=== PATIENT | male | born 1950 | race Caucasian/White ===

== ENCOUNTER → 2021-05-31 09:23 | Outpatient (REF) | payer MEDICARE, SELFPAY ==
--- NOTE | 2021-05-31 09:29 | CA_ITS ---
Transthoracic Echocardiogram Patient (Last, First, Middle): Billy Holman Le Grand Gender: Male Date of : 1950 Age: 70 Procedure Date: 05/31/2021 Procedure Type: Transthoracic Echocardiogram Location: OP Height: 182.88 cm Weight: 98.88 kg BSA: 2.21 m2 Heart Rate: bpm BP: 129 / 72 mmHg Immigration Case Worker: MALCOLM Referring MD: Moe Toth MD Symptoms: I10 - Essential (primary) hypertension Study Quality: Fair ECG Rhythm: Sinus Conclusions: - The left ventricular systolic function is normal. The calculated ejection fraction is 63% by biplane method. - There is mild aortic valve regurgitation. - There is moderate dilatation of the ascending aorta measuring 4.80 cm and mild dilatation of the aortic arch measuring 4.00 cm. Findings Left Ventricle Normal left ventricular cavity size. There is mildly increased left ventricular wall thickness. The left ventricular systolic function is normal. The calculated ejection fraction is 63% by biplane method. There is no evidence of regional wall motion abnormalities. E/E prime ratio is between 8 and 15 consistent with indeterminate filling pressures. Evidence suggests grade I (mild) diastolic dysfunction. Right Ventricle Normal right ventricular cavity size and systolic function. Atria The left atrium is mildly dilated. The right atrium is normal in size. Aortic Valve There is a normal trileaflet aortic valve. There is mild calcification of the aortic valve. There is no aortic valve stenosis. There is mild aortic valve regurgitation. Mitral Valve The mitral valve appears normal. There is no mitral valve regurgitation. There is no mitral valve stenosis. Pulmonic Valve The pulmonic valve was not well visualized. Tricuspid Valve Normal tricuspid valve structure. There is trace tricuspid valve regurgitation. The pulmonary artery systolic pressure is normal. Great Vessels There is moderate dilatation of the ascending aorta measuring 4.80 cm and mild dilatation of the aortic arch measuring 4.00 cm. Venous The inferior vena cava is normal in size and collapses greater than 50% with inspiration. Pericardium/Pleural There is no evidence of pericardial effusion. Prior Study Comparison Changes noted compared to prior study dated: 03/06/2020. Increase in ascending aortic size. Consider CTA for further evaluation if clinically indicated. Measurements 2D Linear Measurements IVSd: 1.10 0.6-0.9/0.6-1.0 cm LVIDd: 6.04 3.9-5.3/4.2-5.9 cm LVIDd Index: 2.73 2.4-3.2/2.2-3.1 cm/m2 LVIDs: 3.64 2.0-3.6 cm LVPWd: 1.05 0.7-1.1 cm Ao Root: 4.00 2.1-3.5 cm LA Diam: 4.90 2.7-3.8/3.0-4.0 cm LAIDs Index: 2.22 1.5-2.3 cm/m2 LV Mass: 342.16 67-162/88-224 g LV Mass Index: 154.83 43-95/49-115 g/m2 LVOT Diam: 2.40 3.0+(-)1.3 cm 2D Systolic Function EF 4C: 62.70 >55% EF 2C: 62.60 >55% EF BiP: 62.90 >55% Mitral Valve MV Pk E: 0.66 MV PK A: 0.60 MV Decel Time: 166.00 E/A: 1.10 E'Lateral: 7.40 E'Medial: 5.44 E/E' Med: 12.20 E/E' Lat: 9.00 PHT: 49.00 MVA PHT: 4.49 Decel [place]: 4.01 Aortic Valve AoV Pk Varun: 1.56 AoV Pk Grad: 10.00 AI Pk Varun: 3.79 AI [place]: 1.33 LVOT LVOT Pk Varun: 1.33 LVOT Mn Varun: 0.83 LVOT VTI: 0.31 LVOT Pk Grad: 7.00 LVOT Mn Grad: 3.00 LVOT Diam: 2.40 LVOT Area: 4.52 Diastolic Function MV Pk E: 0.66 MV Pk A: 0.60 E/A: 1.10 E'Medial: 5.44 E/E' Med: 12.20 E' Laterial: 7.40 E/E' Lat: 9.00 Right Ventricle TAPSE (mm): 2.14 Tricuspid Valve TR Pk Varun: 2.49 TR Pk Grad: 25.00 RA Press: 3.00 RVSP: 28.00 Great Vessels Aorta Ao Root-2D: 4.00 2.0-3.7 cm Ao Asc: 4.80 2.1-3.4 cm Ao Arch: 4.00 Updated in Other Vendor System with Status of Final Micah Rebolledo MD electronically signed on 06/01/2021 12:57:02 PM with status of Final
== END ==
LOC: HO.CARD 09:23
PROVIDERS: Visit Provider Internal Medicine Cardiovascular Disease
DX: I10 Essential (primary) hypertension (principal); I71.2 Thoracic aortic aneurysm, without rupture
CPT/HCPCS: 93306

== ENCOUNTER → 2021-06-05 08:20 | Outpatient (BNVA) | payer MEDICARE, SELFPAY | PROVIDERS: Visit Provider Internal Medicine Cardiovascular Disease | DX: I71.2 Thoracic aortic aneurysm, without rupture (principal); I10 Essential (primary) hypertension | CPT/HCPCS: 93005; 99212 ==

== ENCOUNTER → 2021-12-03 10:15 | Outpatient (REF) | payer MEDICARE, SELFPAY ==
--- NOTE | 2021-12-03 10:18 | CA_ITS ---
Transthoracic Echocardiogram Patient (Last, First, Middle): Billy Holman Le Grand Gender: Male Date of : 1950 Age: 71 Procedure Date: 12/03/2021 Procedure Type: Transthoracic Echocardiogram Location: OP Height: 182.88 cm Weight: 94.35 kg BSA: 2.17 m2 Heart Rate: 40 bpm BP: 120 / 76 mmHg Team Driver: VINCE Referring MD: Moe Toth MD Symptoms: I42.9 - Cardiomyopathy, unspecified Study Quality: Adequate ECG Rhythm: Bradycardia Conclusions: - The left ventricular systolic function is low normal. The visually estimated ejection fraction is between 50-55%. - There is mild aortic valve regurgitation. - There is moderate dilatation of the ascending aorta measuring 4.60 cm. Findings Left Ventricle Normal left ventricular cavity size. There is mildly increased left ventricular wall thickness. The left ventricular systolic function is low normal. The visually estimated ejection fraction is between 50-55%. There is no evidence of regional wall motion abnormalities. E/E prime ratio is between 8 and 15 consistent with indeterminate filling pressures. Evidence suggests grade I (mild) diastolic dysfunction. Moderate focal hypertrophy of the basal septum. Right Ventricle Normal right ventricular cavity size and systolic function. Aortic Valve There is a normal trileaflet aortic valve. There is mild calcification of the aortic valve. There is no aortic valve stenosis. There is mild aortic valve regurgitation. Great Vessels The aortic annulus, sinuses of valsalva, sino tubular ridge, and desc aorta are normal in size. There is moderate dilatation of the ascending aorta measuring 4.60 cm. Prior Study Comparison Changes noted compared to prior study dated: 05/31/2021. LVEF slightly lower than prior study. Aortic size overall similar to last 3 studies. Measurements 2D Linear Measurements IVSd: 0.88 0.6-0.9/0.6-1.0 cm LVIDd: 6.22 3.9-5.3/4.2-5.9 cm LVIDd Index: 2.87 2.4-3.2/2.2-3.1 cm/m2 LVIDs: 4.06 2.0-3.6 cm LVPWd: 0.84 0.7-1.1 cm LV Mass: 269.34 67-162/88-224 g LV Mass Index: 124.12 43-95/49-115 g/m2 2D Systolic Function EF 4C: 48.20 >55% EF 2C: 53.30 >55% EF BiP: 49.70 >55% Mitral Valve MV Pk E: 0.54 MV PK A: 0.62 MV Decel Time: 229.00 E/A: 0.90 E'Lateral: 4.47 E'Medial: 3.16 E/E' Med: 17.10 E/E' Lat: 12.10 PHT: 67.00 MVA PHT: 3.28 Decel [place]: 2.36 Aortic Valve AoV Pk Varun: 1.61 AoV Mn Varun: 1.13 AoV VTI: 0.38 AoV Pk Grad: 10.00 Aov Mn Grad: 6.00 AI Pk Varun: 4.06 AI [place]: 1.24 LVOT LVOT Pk Varun: 1.23 LVOT Mn Varun: 0.82 LVOT VTI: 0.27 LVOT Pk Grad: 6.00 LVOT Mn Grad: 3.00 Diastolic Function MV Pk E: 0.54 MV Pk A: 0.62 E/A: 0.90 E'Medial: 3.16 E/E' Med: 17.10 E' Laterial: 4.47 E/E' Lat: 12.10 Right Ventricle TAPSE (mm): 19.80 TVS' Varun: 12.40 Tricuspid Valve TR Pk Varun: 2.16 TR Pk Grad: 19.00 RA Press: 3.00 RVSP: 22.00 Great Vessels Aorta Sinus of Valsalva: 3.61 2.0-3.[address] [place]: 3.48 1.7-3.4 cm Ao Asc: 4.60 2.1-3.4 cm Ao Arch: 3.80 Ao Desc: 2.30 Updated in Other Vendor System with Status of Final Micah Rebolledo MD electronically signed on 12/08/2021 1:06:42 PM with status of Final
== END ==
LOC: HO.CARD 10:15
PROVIDERS: Visit Provider Internal Medicine Cardiovascular Disease
DX: I42.9 Cardiomyopathy, unspecified (principal); I71.2 Thoracic aortic aneurysm, without rupture
CPT/HCPCS: 93308

== ENCOUNTER → 2021-12-05 10:16 | Outpatient (BNVA) | payer MEDICARE, SELFPAY | PROVIDERS: Visit Provider Internal Medicine Cardiovascular Disease | DX: I71.2 Thoracic aortic aneurysm, without rupture (principal); I10 Essential (primary) hypertension; R07.89 Other chest pain | CPT/HCPCS: 99212 ==

== ENCOUNTER → 2022-11-28 12:51 | Outpatient (REF) | payer MEDICARE, SELFPAY ==
--- NOTE | 2022-11-28 12:54 | CA_ITS ---
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 Normal LV systolic function LVEF of 60 65% with impaired relaxation filling pattern 2. Mildly dilated left atrium 3. Moderately dilated ascending aorta at 4.9 cm 4. Mild aortic regurgitation 5. Normal RV systolic pressure 6. No gross pericardial effusion Findings Left Ventricle Normal left ventricular size, thickness, and systolic function. The visually estimated ejection fraction is between 60-65%. Spectral Doppler is indicative of an impaired relaxation filling pattern. E/E prime ratio is between 8 and 15 consistent with indeterminate filling pressures. There is moderate septal asymmetric hypertrophy. Right Ventricle Normal right ventricular cavity size and systolic function. Atria The left atrium is mildly dilated. There is no evidence of interatrial shunt. The right atrium is likely dilated. Aortic Valve Normal aortic valve structure and function. There is no aortic valve stenosis. There is mild aortic valve regurgitation. Mitral Valve There is mild anterior and posterior mitral leaflet thickening. There is trace mitral valve regurgitation. There is no mitral valve stenosis. Pulmonic Valve The pulmonic valve was not well visualized. Tricuspid Valve Likely normal tricuspid valve structure and function. There is trace tricuspid valve regurgitation. The right ventricular systolic pressure is normal. The right ventricular systolic pressure is 25 mmHg. Normal right atrial pressure. There is no evidence of pulmonary hypertension. Great Vessels The pulmonary artery was not well visualized. There is moderate dilatation of the ascending aorta measuring 4.90 cm. Venous The inferior vena cava is normal in size and collapses greater than 50% with inspiration. Pericardium/Pleural There is no evidence of pericardial effusion. Prior Study Comparison Changes noted compared to prior study dated: 12/03/2021. Ascending aorta is further enlarged at 4.9 cm. LV systolic function is normal range Measurements 2D Linear Measurements IVSd: 1.66 0.6-0.9/0.6-1.0 cm LVIDd: 5.34 3.9-5.3/4.2-5.9 cm LVIDd Index: 2.44 2.4-3.2/2.2-3.1 cm/m2 LVIDs: 3.13 2.0-3.6 cm LVPWd: 0.99 0.7-1.1 cm LA Diam: 4.50 2.7-3.8/3.0-4.0 cm LAIDs Index: 2.05 1.5-2.3 cm/m2 LV Mass: 372.32 67-162/88-224 g LV Mass Index: 170.01 43-95/49-115 g/m2 LVOT Diam: 2.60 3.0+(-)1.3 cm 2D Systolic Function EF 4C: 62.00 >55% EF 2C: 66.10 >55% EF BiP: 64.20 >55% Mitral Valve MV Pk E: 0.57 MV PK A: 0.51 MV Decel Time: 252.00 E/A: 1.10 E'Lateral: 5.33 E'Medial: 4.24 E/E' Med: 13.50 E/E' Lat: 10.80 PHT: 74.00 MVA PHT: 2.97 Decel [place]: 2.28 Aortic Valve AoV Pk Varun: 1.68 AoV Mn Varun: 1.09 AoV VTI: 0.42 AoV Pk Grad: 11.00 Aov Mn Grad: 5.00 THANH Cont.VTI: 4.19 AI Pk Varun: 3.72 AI [place]: 0.82 LVOT LVOT Pk Varun: 1.28 LVOT Mn Varun: 0.82 LVOT VTI: 0.33 LVOT Pk Grad: 7.00 LVOT Mn Grad: 3.00 LVOT Diam: 2.60 LVOT Area: 5.31 Diastolic Function MV Pk E: 0.57 MV Pk A: 0.51 E/A: 1.10 E'Medial: 4.24 E/E' Med: 13.50 E' Laterial: 5.33 E/E' Lat: 10.80 Right Ventricle TAPSE (mm): 23.80 TVS' Varun: 12.10 Tricuspid Valve TR Pk Varun: 2.35 TR Pk Grad: 22.00 RA Press: 3.00 RVSP: 25.00 Great Vessels Aorta Sinus of Valsalva: 4.18 2.0-3.[address] [place]: 3.26 1.7-3.4 cm Ao Asc: 4.90 2.1-3.4 cm Ao Arch: 4.00 Updated in Other Vendor System with Status of Final Moe Toth MD electronically signed on 12/01/2022 11:53:41 AM with status of Final
== END ==
LOC: HO.CARD 12:51
PROVIDERS: Visit Provider Internal Medicine Cardiovascular Disease
DX: I71.20 Thoracic aortic aneurysm, without rupture, unspecified (principal)
CPT/HCPCS: 93306

== ENCOUNTER → 2022-12-02 10:23 | Outpatient (BNVA) | payer MEDICARE, SELFPAY | PROVIDERS: Visit Provider Internal Medicine Cardiovascular Disease | DX: I71.20 Thoracic aortic aneurysm, without rupture, unspecified (principal); I10 Essential (primary) hypertension | CPT/HCPCS: 93005; 99212 ==

== ENCOUNTER → 2023-06-02 09:50 | Outpatient (REF) | payer MEDICARE, SELFPAY ==
--- NOTE | 2023-06-02 09:57 | CA_ITS ---
Transthoracic Echocardiogram Patient (Last, First, Middle): Billy Holman Le Grand Gender: Male Date of : 1950 Age: 72 Procedure Date: 06/02/2023 Procedure Type: Transthoracic Echocardiogram Location: OP Height: 182.88 cm Weight: 97.52 kg BSA: 2.20 m2 Heart Rate: bpm BP: 124 / 78 mmHg Cardiothoracic Physiotherapist: CHRISTIANNE/RHIANNON Referring MD: Moe Toth MD Symptoms: I42.9 - Cardiomyopathy, unspecified Study Quality: Adequate ECG Rhythm: Sinus bradycardia Conclusions: - The left ventricular systolic function is normal. The calculated ejection fraction is 66% by biplane method. Findings Left Ventricle Normal left ventricular cavity size. The left ventricular systolic function is normal. The calculated ejection fraction is 66% by biplane method. There is no evidence of regional wall motion abnormalities. There is mild septal and mild basal asymmetric hypertrophy. LV peak GLS -24%.. Venous The inferior vena cava is normal in size and collapses greater than 50% with inspiration. Prior Study Comparison No significant change compared to prior study dated: 11/28/2022. Measurements 2D Linear Measurements IVSd: 0.91 0.6-0.9/0.6-1.0 cm LVIDd: 5.11 3.9-5.3/4.2-5.9 cm LVIDd Index: 2.32 2.4-3.2/2.2-3.1 cm/m2 LVIDs: 2.93 2.0-3.6 cm LVPWd: 1.07 0.7-1.1 cm LA Diam: 4.90 2.7-3.8/3.0-4.0 cm LAIDs Index: 2.23 1.5-2.3 cm/m2 LV Mass: 232.36 67-162/88-224 g LV Mass Index: 105.62 43-95/49-115 g/m2 LVOT Diam: 2.60 3.0+(-)1.3 cm 2D Systolic Function EF 4C: 65.30 >55% EF 2C: 63.70 >55% EF BiP: 66.40 >55% LVOT LVOT Pk Varun: 1.42 LVOT Mn Varun: 0.86 LVOT VTI: 0.34 LVOT Pk Grad: 8.00 LVOT Mn Grad: 4.00 LVOT Diam: 2.60 LVOT Area: 5.31 Tricuspid Valve RA Press: 3.00 Updated in Other Vendor System with Status of Final Micah Rebolledo MD electronically signed on 06/03/2023 11:59:37 AM with status of Final
== END ==
LOC: HO.CARD 09:50
PROVIDERS: Visit Provider Internal Medicine Cardiovascular Disease
DX: I42.9 Cardiomyopathy, unspecified (principal); I71.20 Thoracic aortic aneurysm, without rupture, unspecified
CPT/HCPCS: 93308; 93356

== ENCOUNTER → 2023-06-02 09:57 | Outpatient (BNV) | payer MEDICARE, SELFPAY | PROVIDERS: Visit Provider Internal Medicine | DX: I42.9 Cardiomyopathy, unspecified (principal) | CPT/HCPCS: 93308 ==

== ENCOUNTER → 2023-06-12 08:54 | Outpatient (REF) | payer MEDICARE, SELFPAY ==
--- NOTE | 2023-06-12 08:56 | CA_ITS ---
Transthoracic Echocardiogram Patient (Last, First, Middle): Billy Holman Le Grand Gender: Male Date of : 1950 Age: 72 Procedure Date: 06/12/2023 Procedure Type: Transthoracic Echocardiogram Location: OP Height: 182.88 cm Weight: 97.52 kg BSA: 2.20 m2 Heart Rate: bpm BP: 116 / 56 mmHg Tour Bus Driver: Referring MD: Moe Toth MD Symptoms: I71.2 - Thoracic aortic aneurysm, without rupture Study Quality: Good ECG Rhythm: Sinus Conclusions: - Normal left ventricular size and systolic function. There is mildly increased left ventricular wall thickness. The visually estimated ejection fraction is between 60-65%. There is no evidence of regional wall motion abnormalities. - Normal right ventricular cavity size and systolic function. - There is mild dilatation of the ascending aorta measuring 4.70 cm. Findings Left Ventricle Normal left ventricular size and systolic function. There is mildly increased left ventricular wall thickness. The visually estimated ejection fraction is between 60-65%. There is no evidence of regional wall motion abnormalities. Right Ventricle Normal right ventricular cavity size and systolic function. Great Vessels There is mild dilatation of the ascending aorta measuring 4.70 cm. Pericardium/Pleural There is no evidence of pericardial effusion. Measurements 2D Linear Measurements IVSd: 1.21 0.6-0.9/0.6-1.0 cm LVIDd: 5.25 3.9-5.3/4.2-5.9 cm LVIDd Index: 2.39 2.4-3.2/2.2-3.1 cm/m2 LVIDs: 3.15 2.0-3.6 cm LVPWd: 1.28 0.7-1.1 cm Ao Root: 4.00 2.1-3.5 cm LV Mass: 331.74 67-162/88-224 g LV Mass Index: 150.79 43-95/49-115 g/m2 Great Vessels Aorta Ao Root-2D: 4.00 2.0-3.7 cm Ao Asc: 4.90 2.1-3.4 cm Updated in Other Vendor System with Status of Final Clay Shay MD electronically signed on 06/13/2023 11:00:30 AM with status of Final
== END ==
LOC: HO.CARD 08:54
PROVIDERS: Visit Provider Internal Medicine Cardiovascular Disease
DX: I71.20 Thoracic aortic aneurysm, without rupture, unspecified (principal)
CPT/HCPCS: 93308

== ENCOUNTER → 2023-06-12 08:56 | Outpatient (BNV) | payer MEDICARE, SELFPAY | PROVIDERS: Visit Provider Internal Medicine Cardiovascular Disease | DX: I10 Essential (primary) hypertension (principal); I71.20 Thoracic aortic aneurysm, without rupture, unspecified | CPT/HCPCS: 93308 ==

== ENCOUNTER 2023-11-02 11:37 | Emergency (ER) | payer MEDICARE, SELFPAY ==
--- NOTE | ~2023-11-02 | XR_ITS ---
EXAMINATION: XR CHEST 2 VIEWS CLINICAL INFORMATION: Chest pain. COMPARISON: CTA chest dated 09/19/2019; chest radiograph dated 09/19/2019. TECHNIQUE: Frontal and lateral views of the chest were obtained. FINDINGS: The heart, great vessels, pulmonary vasculature and mediastinum are normal. The lungs show no focal infiltrate, effusion or pneumothorax. There is no acute osseous abnormality. There is a mild thoracolumbar dextroscoliosis. There is multi-level thoracic and upper lumbar spondylosis. There are right upper quadrant surgical clips. XR/XR chest 2V IMPRESSION: No active cardiopulmonary disease.
--- NOTE | 2023-11-02 11:39 | ECG_ITS ---
Test Reason : CHEST PAIN Blood Pressure : / mmHG Vent. Rate : 046 BPM Atrial Rate : 046 BPM P-R Int : 214 ms QRS Dur : 108 ms QT Int : 494 ms P-R-T Axes : 017 -25 008 degrees QTc Int : 432 ms Sinus bradycardia with 1st degree A-V block with occasional Premature ventricular complexes Moderate voltage criteria for LVH, may be normal variant ( R in aVL , Kathleen product ) Septal infarct , age undetermined Abnormal ECG When compared with ECG of 19-SEP-2019 22:39, Septal infarct is now Present Referred By: Shalonda Baig Electronically Signed By:Clay Shay
[2023-11-02 11:57] VITALS: BP 165/74; PULSE 50; RESP 18; TEMP 36.5; O2SAT 99; BMI 29.2
--- NOTE | 2023-11-02 12:02 | ED.GENADULT ---
HPI - General Adult General Chief complaint: Chest Pain Stated complaint: Chest pain, high BP Time Seen by Provider: 11/02/23 15:33 Source: patient Mode of arrival: ambulatory Limitations: no limitations History of Present Illness HPI narrative: Patient is a 73 year old assigned male at with a history of HTN and ascending aortic aneurysm for which he gets 6 month ultrasounds and follows with Dr. Toth, presenting to the emergency department today with chest pain and elevated blood pressure. Patient states that over the last few days he has noticed chest pain that is worse with inspiration and his blood pressure has been higher than usual even when taking his medications. Patient denies any dizziness, lightheadedness, abdominal pain, nausea, vomiting, fever, chills, blurry vision, double vision, loss of vision, difficulty breathing, shortness of breath, back pain, night sweats, pain with urination, increased urinary frequency, increased urinary urgency, blood in his urine or stool, syncope or a near syncopal episode, recent trauma or falls, bowel incontinence, bladder incontinence, bowel retention, bladder retention, or any other complaints at this time. Onset (ago): day(s) Location: chest Radiation: non-radiation Severity: mild Severity scale (1-10): 3 Relieving factors: none Exacerbating factors: none Associated symptoms: denies other symptoms Treatments prior to arrival: none Related Data Home Medications ?Medication ?Instructions ?Recorded ?Confirmed aspirin 81 mg tablet,delayed 81 mg PO DAILY 06/05/21 12/02/22 release cholecalciferol (vitamin D3) 25 25 mcg PO DAILY 12/02/22 12/02/22 mcg (1,000 unit) capsule Previous Rx's ?Medication ?Instructions ?Recorded amlodipine 5 mg tablet 5 mg PO DAILY 90 days #90 tabs 08/13/23 atenolol 50 mg tablet 50 mg PO DAILY 90 days #90 tabs 08/13/23 Allergies Allergy/AdvReac Type Severity Reaction Status Date / Time Sulfa (Sulfonamide Allergy Unknown HIVES Verified 11/02/23 12:01 Antibiotics) [SULFA (SULFONAMIDE ANTIBIOTICS)] Review of Systems Constitutional: Constitutional: Reports no additional constitutional complaints, Denies chills, Denies fever(s) and Denies night sweats Eyes: Eyes: Reports no additional eye complaints, Denies blurry vision, Denies change in vision, Denies diplopia, Denies eye discharge, Denies loss of vision and Denies eye pain ENT: Denies dizziness Cardiovascular: Cardiovascular: Reports no additional cardiovascular complaints, Reports chest pain, Denies lightheadedness, Denies Loss of Consciousness and Denies dyspnea Respiratory: Respiratory: Reports no additional respiratory complaints and Denies dyspnea Gastrointestinal: Gastrointestinal: Reports no additional gastrointestinal complaints, Denies abdominal pain, Denies melena, Denies hematochezia, Denies change in bowel habits and Denies change in stool character Genitourinary: Genitourinary: Reports no additional male genitourinary complaints, Denies hematuria, Denies oliguria, Denies difficulty urinating, Denies dysuria, Denies urinary frequency, Denies urinary hesitancy, Denies urinary incontinence and Denies urinary urgency Musculoskeletal: Musculoskeletal: Reports no additional musculoskeletal complaints, Denies numbness and Denies tingling Neurologic: Denies dizziness, Denies loss of vision, Denies numbness and Denies tingling Psychiatric: Psychiatric: Reports no additional psychiatric complaints Endocrine: Endocrine: Reports no additional endocrine complaints Hematologic/Lymphatic: Hematologic/Lymphatic: Reports no additional hematologic/lymphatic complaints Allergic/Immunologic: Allergic/Immunologic: Reports no additional allergic/immunologic complaints [facility] Past Medical History Attestation statement: The following information was validated with the patient. Source: old records reviewed and nursing notes reviewed Medical History HTN (hypertension) Thoracic aortic aneurysm Surgical History Hx of cholecystectomy Family History Family History Father No problems noted. Mother Lung cancer Social History Social History Patient Tobacco Use Status: Never used Tobacco Advance Directives: Yes Advance Directives Information Provided: No Advance Directives on File: No Do you have a plan to hurt others: No Plan Physical Exam ED Vital Signs: Vital Signs - 24 hr 11/02/23 11:57 11/02/23 17:47 Temperature 97.7 F 97.8 F Pulse Rate 50 54 Respiratory Rate 18 18 Blood Pressure 165/74 H 167/70 H Pulse Oximetry 99 99 Oxygen Delivery Method Room Air Room Air BMI result Body Mass Index 29.2 Const General: cooperative, no acute distress, alert and awake Nutritional Appearance: well nourished Orientation/consciousness: patient oriented x3 Limitations: no limitations HENMT Head: Yes normal to inspection and Yes atraumatic Ears: hearing grossly normal bilaterally and external ears normal General nose exam: Normal external nose present, no nasal discharge noted and no epistaxis Face and sinus: Yes normal facial exam, No abrasion and No laceration Mouth: Normal oral and palatal mucosa present, no drooling and no muffled voice Eyes General: appearance normal, both eyes and all related structures Periorbital: periorbital findings normal Eyelids: Yes eyelids normal Conjunctivae: conjunctivae normal Pupils: Equal, round and reactive pupils present EOM: EOMs intact bilaterally Neck Neck: Yes normal visual inspection, Yes full ROM and Yes no lymphadenopathy Chest Chest palpation & inspection: normal inspection of the chest Resp Effort & Inspection: normal respiratory effort and able to speak in complete sentences GI Inspection: Yes normal to inspection Neuro General: patient oriented x3 and moves all extremities Cranial nerves: Yes Equal, round and reactive pupils present Cognition (Neuro): normal cognition Motor exam (neuro): 5/5 motor strength present throughout Sensory Exam: Normal double simultaneous stimulation for sensation Coordination: [id number] test normal Extrem General: Yes normal to inspection, Yes full ROM and Yes capillary refill normal Psych Appearance: grossly normal Mental Status: mental status grossly normal Affect: normal affect Attitude: cooperative Thought process: Normal thought process present Thought content: Normal thought content present Insight: Good insight present (Psych) Course Course Course Narrative: RME performed by Shalonda Baig PA-C. Patient is a 73 year old assigned male at presenting to the emergency department with chest pain. Patient states that he has history of hypertension and over the last few days has had a high blood pressure and chest pain. Detailed physical exam and review of systems are deferred to the retail experience specialist. Labs, imaging, and swabs ordered. Patient placed back in the waiting room pending room availability and results. Medical Decision Making Medical Decision Making MDM Narrative: Patient is a 73 year old assigned male at with a history of HTN and ascending aortic aneurysm presenting to the emergency department today with chest pain and continued hypertension. Patient's physical exam was unremarkable. Patient was in no acute distress. Patient visibly comfortable. Patient's blood work was unremarkable. Patient's EKG was unremarkable. Patient's chest x-ray showed no acute process. I spoke to the hydroelectric component machinist self contained behavior unit teacher who agreed with discharge and stated that his office would coordinate a follow up and stress test with the patient. I explained my physical exam findings as well as all test results to the patient. I answered all questions asked by the patient. I stressed the importance of the patient taking his medication as prescribed. I stressed the importance of the patient following up with his primary care provider and his hydroelectric component machinist. I stressed the importance of the patient returning to the emergency department immediately if his symptoms were to worsen or if he were to develop any dizziness, shortness of breath, difficulty breathing, chest pain, blurry vision, loss of vision, nausea, vomiting, abdominal pain, fever, chills, back pain, or any other complaints. Patient verbalized agreement and understanding with this treatment plan and discharge. Differential Diagnosis Differential Diagnoses: The differential diagnosis associated with the presentation includes Chest pain NSTEMI STEMI ACS Chest wall pain Admission/Observation Consideration of admission/observation: Escalation of care including admission/observation considered Patient would have been admitted to the hospital had his work up had any findings where hospital admission was appropriate and his clinical presentation warranted hospital admission. Consult Healthcare Provider Management of the patient was discussed with: Respiratory Medicine Physician (spoke to the hydroelectric component machinist as noted in the MDM Rationale portion of this note.) Lab Data [facility] Lab Attestation statement: I reviewed the patient's lab results. My interpretation of these results are in the MDM Rationale portion of this note. 11/02/23 12:19 11/02/23 12:19 Labs: Lab Results 11/02/23 11/02/23 Range/Units 12:19 16:29 WBC 5.7 (4.8-10.8) X10*3/uL RBC 4.65 (4.60-5.80) X10*6/uL Hgb 14.2 (14.0-18.0) g/dl Hct 40.3 L (42.0-52.0) % MCV 86.7 (80.0-98.0) fL MCH 30.5 (27.0-33.0) pg MCHC 35.2 (31.0-36.0) g/dl RDW 12.2 (11.0-16.0) % Plt Count 168 (160-400) X10*3/uL MPV 10.2 (9.4-12.4) fL Immature Gran % (Auto) 0.5 H (0.0-0.4) % Neut % (Auto) 64.6 (45-73) % Lymph % (Auto) 25.0 (20-40) % Hyde % (Auto) 8.1 (2-11) % Eos % (Auto) 1.1 (0-4) % Baso % (Auto) 0.7 (0-2) % Lymph # (Auto) 1.4 (1.2-4.9) X10*3/uL Hyde # (Auto) 0.5 (0.1-1.2) X10*3/uL Eos # (Auto) 0.1 (0.0-0.4) X10*3/uL Baso # (Auto) 0.0 (0.0-0.2) X10*3/uL Abs Immat Gran (auto) 0.03 (0.00-0.03) X10*3/uL Absolute Neuts (auto) 3.7 (2.0-8.3) x10*3/uL Absolute Nucleated RBC 0.000 (0.0-0.012) X10*3/uL Nucleated RBC % (auto) 0.0 (0.0-0.2) /100WBC PT 12.8 (11.1-13.3) SEC INR 1.1 (0.9-1.1) APTT 33.7 (26.0-36.8) SEC Sodium 140 (135-145) mmol/L Potassium 4.0 (3.3-5.1) mmol/L Chloride 104 (96-108) mmol/L Carbon Dioxide 28 (22-29) mmol/L Anion Gap 12 (12-20) BUN 14 (9-16) mg/dL Creatinine 0.94 (0.5-1.4) mg/dL Estim Creat Clear Calc 83.4 Estimated GFR > 60 Random Glucose 98 (60-115) mg/dL Calcium 9.5 (8.4-10.2) mg/dL Magnesium 2.0 (1.6-2.6) mg/dL Total Bilirubin 1.3 H (0.0-1.0) mg/dL AST 19 (5-37) U/L ALT 23 (0-40) U/L Alkaline Phosphatase 69 (39-117) U/L Troponin I High Sens 7.9 5.1 (<3.5-35.0) ng/L Total Protein 7.0 (6.5-8.0) g/dL Albumin 3.9 (3.5-5.0) g/dL Influenza Type A (PCR) NEGATIVE (Negative) Influenza Type B (PCR) NEGATIVE (Negative) RSV RNA Qual (PCR) NEGATIVE (Negative) SARS-CoV-2 RNA (RT-PCR) NEGATIVE (Negative) Independent Interpretation I performed an independent interpretation of an: EKG and Plain X-Ray Interpretation: My interpretation is in agreement with the radiologist's impression of this imaging study. EXAMINATION: XR CHEST 2 VIEWS CLINICAL INFORMATION: Chest pain. COMPARISON: CTA chest dated 09/19/2019; chest radiograph dated 09/19/2019. TECHNIQUE: Frontal and lateral views of the chest were obtained. FINDINGS: The heart, great vessels, pulmonary vasculature and mediastinum are normal. The lungs show no focal infiltrate, effusion or pneumothorax. There is no acute osseous abnormality. There is a mild thoracolumbar dextroscoliosis. There is multi-level thoracic and upper lumbar spondylosis. There are right upper quadrant surgical clips. XR/XR chest 2V IMPRESSION: No active cardiopulmonary disease. Dictated By: Stephon Saha MD Signed By: Electronically signed by Stephon Saha MD 11/02/23 [id number] Vent. Rate: 044 BPM Atrial Rate: 044 BPM P-R Int: 214 ms QRS Dur: 114 ms QT Int: 476 ms P-R-T Axes: 018 -26 022 degrees QTc Int: 406 ms Marked sinus bradycardia with 1st degree A-V block Moderate voltage criteria for LVH, may be normal variant (R in aVL, [place] product) Septal infarct (cited on or before 02-NOV-2023) Abnormal ECG When compared with ECG of 02-NOV-2023 11:45, Premature ventricular complexes are no longer Present Questionable change in initial forces of Septal leads DD/ [id number] Vent. Rate: 046 BPM Atrial Rate: 046 BPM P-R Int: 214 ms QRS Dur: 108 ms QT Int: 494 ms P-R-T Axes: 017 -25 008 degrees QTc Int: 432 ms Sinus bradycardia with 1st degree A-V block with occasional Premature ventricular complexes Moderate voltage criteria for LVH, may be normal variant (R in aVL, [place] product) Septal infarct, age undetermined Abnormal ECG When compared with ECG of 19-SEP-2019 22:39, Septal infarct is now Present DD/ [id number] Radiology Impression Discussion of test interpretation with radiology: I have reviewed the radiologist's reading. Chronic Conditions Patient?s care impacted by: Hypertension Critical Care Time Critical Care Time Critical Care Time: Yes Total Critical Care Time: 66 Attestation: I spent 66 minutes of Critical Care Time with this patient. This does not include time spent on separately reported billable procedures. Discharge Plan Discharge Clinical Impression: HTN (hypertension), Chest pain Patient Disposition: Home, Self-Care Instructions: Chest Pain (DC), Hypertension (ED) Additional Instructions: Follow up with your primary care provider and your hydroelectric component machinist. Return to the emergency department immediately if your symptoms worsen or if you develop any dizziness, shortness of breath, difficulty breathing, chest pain, blurry vision, loss of vision, nausea, vomiting, abdominal pain, fever, chills, back pain, or any other complaints. Prescriptions: No Action amlodipine 5 mg tablet 5 mg PO DAILY 90 Days Qty: 90 3RF atenolol 50 mg tablet 50 mg PO DAILY 90 Days Qty: 90 3RF aspirin 81 mg tablet,delayed release (DR/EC) 81 mg PO DAILY cholecalciferol (vitamin D3) 25 mcg (1,000 unit) capsule 25 mcg PO DAILY Referrals: [facility] [Provider Group] Fredy Sales DO [Primary Care Provider] - Interventions: ED Discharge Assessment Last Done: 11/02/23 17:47 Discharge Date/Time: 11/02/23 17:48 Print Language: Armenian
[2023-11-02 12:25] LABS: MANUAL DIFF FLAG NO
[2023-11-02 12:27] LABS: Basophils Percent Auto 0.7 % (0-2); Eosinophils Absolute Auto 0.1 X10*3/uL (0.0-0.4); Eosinophils Percent Auto 1.1 % (0-4); Hematocrit 40.3 % (42.0-52.0); Hemoglobin 14.2 g/dl (14.0-18.0); Imm Gran Abs Auto 0.03 X10*3/uL (0.00-0.03); Imm Gran Pct Auto 0.5 % (0.0-0.4); Lymphocytes Absolute Auto 1.4 X10*3/uL (1.2-4.9); Mean Corpuscular HGB Conc 35.2 g/dl (31.0-36.0); Mean Corpuscular Hemoglobin 30.5 pg (27.0-33.0); Mean Corpuscular Volume 86.7 fL (80.0-98.0); Mean Platelet Volume 10.2 fL (9.4-12.4); Monocytes Absolute Auto 0.5 X10*3/uL (0.1-1.2); Monocytes Percent Auto 8.1 % (2-11); Neutrophils Absolute Auto 3.7 x10*3/uL (2.0-8.3); Neutrophils Percent Auto 64.6 % (45-73); Platelet Count 168 X10*3/uL (160-400); Red Blood Count 4.65 X10*6/uL (4.60-5.80); Red Cell Distribution Width 12.2 % (11.0-16.0); White Blood Count 5.7 X10*3/uL (4.8-10.8)
[2023-11-02 12:36] LABS: INTERNATIONAL NORM RATIO 1.1 (0.9-1.1); Prothrombin Time 12.8 SEC (11.1-13.3)
[2023-11-02 12:38] LABS: Partial Thromboplastin Time 33.7 SEC (26.0-36.8)
[2023-11-02 12:45] LABS: Alanine Aminotransferase 23 U/L (0-40); Albumin Level 3.9 g/dL (3.5-5.0); Alkaline Phosphatase 69 U/L (39-117); Anion Gap 12 (12-20); Aspartate Amino Transferase 19 U/L (5-37); Bilirubin Total 1.3 mg/dL (0.0-1.0); Blood Urea Nitrogen 14 mg/dL (9-16); Calcium 9.5 mg/dL (8.4-10.2); Carbon Dioxide 28 mmol/L (22-29); Chloride 104 mmol/L (96-108); Creatinine Clr Calc Pharmacy 83.4; Estimated Glomerular Filt Rate > 60; Glucose Random 98 mg/dL (60-115); Sodium 140 mmol/L (135-145)
[2023-11-02 12:54] LABS: Troponin-I High Sensitivity 7.9 ng/L (<3.5-35.0)
[2023-11-02 13:09] LABS: Influenza A PCR NEGATIVE (Negative); Influenza B PCR NEGATIVE (Negative); Resp Syncy Virus RNA Qual PCR NEGATIVE (Negative); SARS COV2 PCR INHOUSE NEGATIVE (Negative)
--- OUTSIDE RECORDS SUMMARY | 2023-11-02 16:30 | XMS_ITS | Continuity of Care Document ---
Author Organization [facility] Brant Lynn Sabino lt Address [address] [place] [id number]- Care Team Providers Care Typist Name Role Phone Fredy Sales DO Primary Care Physician Encounter [facility] Date(s): 10/13/23 - 10/20/23 [facility] [address] [place] [address]- Encounter Diagnosis Colon polyps(Discharge Diagnosis) - 09/29/23 Diverticula of colon(Discharge Diagnosis) - 09/29/23 Thoracic aortic aneurysm 4.6(Discharge Diagnosis) - 09/29/23 Crohn's disease(Discharge Diagnosis) - 09/29/23 History of renal cell carcinoma(Discharge Diagnosis) - 09/29/23 Essential hypertension in child(Discharge Diagnosis) - 09/29/23 Mixed hyperlipidemia(Discharge Diagnosis) - 09/29/23 Medicare annual wellness visit, subsequent(Discharge Diagnosis) - 09/29/23 Skin cancer, basal cell(Discharge Diagnosis) - 10/13/23 Onychomycosis of toenail(Discharge Diagnosis) - 10/13/23 Vitamin D deficiency(Discharge Diagnosis) - 10/13/23 Hearing loss sensory, bilateral(Discharge Diagnosis) - 10/13/23 Attending Physician: Fredy Sales DO Allergies, Adverse Reactions, Alerts Substance Reaction Severity Status sulfa drugs Hives Active Immunizations Given and Recorded Vaccine Date Status Refusal Reason pneumococcal 20-valent conjugate vaccine 1 10/13/23 Given 1Result Comment: PCV 20 [facility]#[id number] Medications amLODIPine 5 mg oral tablet 5 mg, 1, tablet, By Mouth, Daily, Refills 0, Maintenance, 10/13/23 11:03:00 EDT, Partial fill upon patient request if the prescription is for a schedule II opioid drug. Start Date: 10/13/23 Status: Ordered aspirin 81 mg oral capsule 1 capsule = 81 mg, By Mouth, Every 24 hours, 0 Refills, Maintenance, 10/13/23 11:04:00 EDT, Partialfill upon patient request if the prescription is for a schedule II opioid drug. Start Date: 10/13/23 Status: Ordered atenolol 50 mg oral tablet 50 mg, 1, tablet, By Mouth, Daily, Refills 0, Maintenance, 10/13/23 11:03:00 EDT, Partial fill uponpatient request if the prescription is for a schedule II opioid drug. Start Date: 10/13/23 Status: Ordered Vitamin D 70382 iu oral capsule 50,000 International_Units, By Mouth, Daily, Refills 0, Maintenance, 10/13/23 11:05:00 EDT, Partialfill upon patient request if the prescription is for a schedule II opioid drug. Start Date: 10/13/23 Status: Ordered Problem List Condition Confirmation Course Effective Dates Status H ealth Status Informant Thoracic aortic aneurysm Confirmed Active Hearing loss sensory, bilateral Confirmed Active Crohn's disease Confirmed Active Diverticula of colon Confirmed Active History of renal cell carcinoma Confirmed Active Essential hypertension in child Confirmed Active Skin cancer, basal cell Confirmed Active Mixed hyperlipidemia Confirmed Active Obese class I Confirmed Active Onychomycosis of toenail Confirmed Active Medicare annual wellness visit, subsequent Confirmed Active Colon polyps Confirmed Active Vitamin D deficiency Confirmed Active Diagnosis Diagnosis Type Effective Dates Health Status Clinical Service Informant Colon polyps Discharge Diagnosis 09/29/23 Diverticula of colon Discharge Diagnosis 09/29/23 Thoracic aortic aneurysm 4.6 Discharge Diagnosis 09/29/23 Non-Specified Crohn's disease Discharge Diagnosis 09/29/23 History of renal cell carcinoma Discharge Diagnosis 09/29/23 Essential hypertension in child Discharge Diagnosis 09/29/23 Mixed hyperlipidemia Discharge Diagnosis 09/29/23 Medicare annual wellness visit, subsequent Discharge Diagnosis 09/29/23 Skin cancer, basal cell Discharge Diagnosis 10/13/23 Onychomycosis of toenail Discharge Diagnosis 10/13/23 Vitamin D deficiency Discharge Diagnosis 10/13/23 Hearing loss sensory, bilateral Discharge Diagnosis 10/13/23 Procedures Procedure Date Related Diagnosis Body Site Status Cholecystectomy Completed History of nephrectomy 1 Completed Small bowel resection 2, 3 Completed 1For renal cell carcinoma 2Secondary to chronic 3Secondary to crohns Vital Signs Most recent to oldest [Reference Range]: 1 Height 183 cm (10/13/23 11:06 AM) Weight 105.1 kg (10/13/23 11:06 AM) Oxygen Saturation [94-100 %] 95 % (10/13/23 11:06 AM) Pulse Rate [55-90 bpm] 60 bpm (10/13/23 11:06 AM) Body Mass Index [18.5-24.99 kg/m2] 31.38 kg/m2 *>HHI* (10/13/23 11:06 AM) Blood Pressure [90-138/55-84 mm Hg] 132/ 65mm Hg (10/13/23 11:06 AM) Respiratory Rate [16-30 br/min] 16 br/mi n (10/13/23 11:06 AM) Temperature [96.8-100.4 DegF] 97.4 DegF (10/13/23 11:06 AM) Mode of Delivery (Oxygen) Room air (10/13/23 11:06 AM) Blood pressure sites Arm, left (10/13/23 11:06 AM) Temperature Route Oral (10/13/23 11:06 AM) Weight Obtained Via Standing scale (10/13/23 11:06 AM) Social History Social History Type Response Smoking Status Never (less than 100 in lifetime) entered on: 10/13/23 Sex Note * Kristal Ross: PERFORM, SIGN, VERIFY Event Display: Patient Education/Instruction Authored Date: [id number] [facility] *BMP [facility] Clinical Summary Name GELA ORTEZ Age 73 Years 1950 PCP Fredy Sales DO PCP Visit Date 10/13/2023 10:55:00 Patient Instructions Health goals for this year Aim to lose weight?? 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 Future Appointments ?No Future Appointments Scheduled Follow-Up Instructions ?? With: Address: When: f/u 6 months Comments: HTN Crohns Diagnosis Crohn's disease, unspecified, without complications; Mixed hyperlipidemia; Basal cell carcinoma of skin, unspecified; Sensorineural hearing loss, bilateral; Thoracic aortic aneurysm, without rupture,unspecified; Tinea unguium; Polyp of colon; Personal history of other malignant neoplasm of kidney;Encounter for general adult medical examination without abnormal findings; Essential (primary) hypertension; Vitamin D deficiency, unspecified; Diverticulosis of large intestine without perforation or abscess without bleeding Medications: Please continue your medications until treatment is completed or stopped by your provider. Discuss any questions related to medications with your provider. Medications to Continue with No Changes These medications were not printed or sent to your pharmacy Amlodipine (amLODIPine 5 mg oral tablet) 1 tab(s) Oral Daily. Next Dose: Aspirin (aspirin 81 mg oral capsule) 1 capsule Oral every 24 hours. Next Dose: Atenolol (atenolol 50 mg oral tablet) 1 tab(s) Oral Daily. Next Dose: Ergocalciferol (Vitamin D 00926 iu oral capsule) 50,000 International Unit Oral Daily. Next Dose: Allergy Info:?? sulfa drugs Medications Given This Visit Medication Dose Route pneumococcal 20-valent conjugate vaccine (pneumococcal 20-valent vacc) 0.5 mL Intramuscular Future Orders ?No future orders Future Orders ?CBC w/ Differential? Order Date:10/13/23?- Complete within?Comprehensive Metabolic Panel? Order Date:10/13/23?- Complete within?Lipid Panel? Order Date:10/13/23?- Complete within?PSA Screen? Order Date:10/13/23?- Complete within?Vitamin D 25 Hydroxy Level? Order Date:10/13/23?- Complete within? Vital Signs Height 183 cm Weight 105.1 kg BMI 31.38 kg/m2 Blood Pressure 132 mm Hg/65 mm Hg Temperature 97.4 DegF Pulse Rate 60 bpm Respiratory Rate 16 br/min 02 Sat Mode of Delivery 95 %/Room air You can now view a summary of your hospital visit from the comfort of your home through a free online portal called [employer]. [employer] is a website that allows you to securely view your medical information including discharge summary, medications and follow-up visits. ??You can alsosend a secure electronic message to your doctor???s office to request appointments, renew medications or just ask a question. You can enroll at [email or web address] or register during your next office visit. Disclaimer:?? The information provided is of a general nature and is intended to be used in conjunction with the recommendations and advice of your health care practitioner. ??Every effort has been made to ensure that the information provided is accurate and complete at the time it is provided to you however, as your needs change, or, as new ??information becomes available, different or additional instructions may be required. If you have questions, please consult with your primary care provider or pharmacist, as appropriate. ??This information is not intended to serve as substitution for assessment and evaluation by a qualified health care provider. If you do not have a primary care provider, you may find a [facility] provider by calling [facility] at [phone]. [facility], in keeping with [facility] guidance, no longer requires face masks for staff, patientsor visitors in most situations. Similar to time spent indoors at other locations, there is the chance that you were exposed to respiratory viruses during your time with us (such as flu or COVID-19).? If you develop symptoms concerning for a viral respiratory infection, please seek testing (and treatment if indicated) from your medical provider or home test kit. For information about the plan of care including goals and instructions for your diagnosis, please see the patient education orders section of this document. Patient Education Materials?? The content of this educational material or handout may have been modified, supplemented, or adapted from its original content and format to support your individualized medical care. Prevention Guidelines, Men Ages 65 and Older Screening tests and vaccines are an important part of managing your health. Health counseling is essential, too. Below are guidelines for these, for men ages 65 and older. Talk with your healthcare provider to make sure you???re up-to-date on what you need. Screening Who needs it How often Abdominal aortic aneurysm Men ages 65 to 75 who have ever smoked 1 ultrasound Alcohol misuse All men in this age group At routine exams Blood pressure All men in this age group Every 2 years if your blood pressure is less than 120/80 mm Hg; yearly if your systolic blood pressure is 120 to 139 mm Hg, or your diastolic blood pressure reading is 80 to 89 mm Hg Colorectal cancer All men in this age group Flexible sigmoidoscopy every 5 years, or colonoscopy every 10 years, or double- contrast barium enema every 5 years; yearly fecal occult blood test or fecal immunochemical test; or a stool DNA test asoften as your healthcare provider advises; talk with your healthcare provider about which tests arebest for you Depression All men in this age group At routine exams Type 2 diabetes or prediabetes All adults beginning at age 45 and adults without symptoms at any age who are overweight or obese and have 1 or more other risk factors for diabetes At least every 3 years Hepatitis C Men at increased risk for infection ??? talk with your healthcare provider At routine exams High cholesterol or triglycerides All men in this age group At least every 5 years HIV Men at increased risk for infection ??? talk with your healthcare provider At routine exams Lung cancer Adults ages 55 to 80 who have smoked Yearly screening in smokers with 30 pack-year history of smoking or who quit within 15 years Obesity All men in this age group At routine exams Prostate cancer All men in this age group, talk to healthcare provider about risks and benefits of digital rectal exam (MAKENNA) and prostate-specific antigen (PSA) screening1 At routine exams Syphilis Men at increased risk for infection ??? talk with your healthcare provider At routine exams Tuberculosis Men at increased risk for infection ??? talk with your healthcare provider Ask your healthcare provider [employer] All men in this age group Every 1 to 2 years; if you have a chronic health condition, ask your healthcare provider if you needs exams more often Vaccine Who needs it How often Chickenpox (varicella) All men in this age group who have no record of this infection or vaccine 2 doses; second dose should be given at least 4 weeks after the first dose Hepatitis A Men at increased risk for infection ??? talk with your healthcare provider 2 doses given at least 6 months apart Hepatitis B Men at increased risk for infection ??? talk with your healthcare provider 3 doses over 6 months; second dose should be given 1 month after the first dose; the third dose should be given at least 2 months after the second dose and at least 4 months after the first dose Haemophilus influenzae Type B (HIB) Men at increased risk for infection ??? talk with your healthcare provider 1 to 3 doses Influenza (flu) All men in this age group Once a year Meningococcal Men at increased risk for infection ??? talk with your healthcare provider 1 or more doses Pneumococcal??conjugate vaccine (PCV13)??and pneumococcal polysaccharide??vaccine (PPSV23) All men in this age group 1 dose of each vaccine Tetanus/diphtheria/ pertussis (Td/Tdap) booster All men in this age group Td every 10 years, or Tdap if you will have contact with a child younger than 12 months old Zoster All men in this age group 1 dose Counseling Who needs it How often Diet and exercise Men??who are overweight or obese When diagnosed, and then at routine exams Fall prevention (exercise, vitamin D supplements) All men in this age group At routine exams Sexually transmitted infection Men at increased risk for infection ??? talk with your healthcare provider At routine exams Use of daily aspirin Men ages 45 to 79 at risk for cardiovascular health problems At routine exams Use of tobacco and the health affects it can cause All men in this age group Every visit [address] [place] [address] [facility] ?? [phone] [employer]. [address] [place] [address], [place] [address]. All rights reserved. This information is not intended as a substitute for professional medical care. Always follow your healthcare professional's instructions. * Kristal Ross: PERFORM, SIGN, VERIFY Event Display: Patient Education/Instruction Authored Date: [facility] *BMP [facility] Clinical Summary Name GELA ORTEZ Age 73 Years 1950 PCP Fredy Sales DO PCP Visit Date 10/13/2023 10:55:00 Patient Instructions Health goals for this year Aim to lose weight?? 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 Follow-up with criminal court judge as planned Follow-up with his cook station as planned Additional Instructions: Scheduled Appointments?? Future Appointments ?No Future Appointments Scheduled Follow-Up Instructions ?? With: Address: When: f/u 6 months Comments: HTN Crohns Diagnosis Crohn's disease, unspecified, without complications; Mixed hyperlipidemia; Basal cell carcinoma of skin, unspecified; Thoracic aortic aneurysm, without rupture, unspecified; Tinea unguium; Polyp of colon; Personal history of other malignant neoplasm of kidney; Encounter for general adult medical examination without abnormal findings; Essential (primary) hypertension; Vitamin D deficiency, unspecified; Diverticulosis of large intestine without perforation or abscess without bleeding Medications: Please continue your medications until treatment is completed or stopped by your provider. Discuss any questions related to medications with your provider. Medications to Continue with No Changes These medications were not printed or sent to your pharmacy Amlodipine (amLODIPine 5 mg oral tablet) 1 tab(s) Oral Daily. Next Dose: Aspirin (aspirin 81 mg oral capsule) 1 capsule Oral every 24 hours. Next Dose: Atenolol (atenolol 50 mg oral tablet) 1 tab(s) Oral Daily. Next Dose: Ergocalciferol (Vitamin D 63532 iu oral capsule) 50,000 International Unit Oral Daily. Next Dose: Allergy Info:?? sulfa drugs Medications Given This Visit Future Orders ?No future orders Future Orders ?CBC w/ Differential? Order Date:10/13/23?- Complete within?Comprehensive Metabolic Panel? Order Date:10/13/23?- Complete within?Lipid Panel? Order Date:10/13/23?- Complete within?PSA Screen? Order Date:10/13/23?- Complete within?Vitamin D 25 Hydroxy Level? Order Date:10/13/23?- Complete within? Vital Signs Height 183 cm Weight 105.1 kg BMI 31.38 kg/m2 Blood Pressure 132 mm Hg/65 mm Hg Temperature 97.4 DegF Pulse Rate 60 bpm Respiratory Rate 16 br/min 02 Sat Mode of Delivery 95 %/Room air You can now view a summary of your hospital visit from the comfort of your home through a free online portal called [employer]. [employer] is a website that allows you to securely view your medical information including discharge summary, medications and follow-up visits. ??You can alsosend a secure electronic message to your doctor???s office to request appointments, renew medications or just ask a question. You can enroll at [email or web address] or register during your next office visit. Disclaimer:?? The information provided is of a general nature and is intended to be used in conjunction with the recommendations and advice of your health care practitioner. ??Every effort has been made to ensure that the information provided is accurate and complete at the time it is provided to you however, as your needs change, or, as new ??information becomes available, different or additional instructions may be required. If you have questions, please consult with your primary care provider or pharmacist, as appropriate. ??This information is not intended to serve as substitution for assessment and evaluation by a qualified health care provider. If you do not have a primary care provider, you may find a [facility] provider by calling [facility] at [phone]. [facility], in keeping with [facility] guidance, no longer requires face masks for staff, patientsor visitors in most situations. Similar to time spent indoors at other locations, there is the chance that you were exposed to respiratory viruses during your time with us (such as flu or COVID-19).? If you develop symptoms concerning for a viral respiratory infection, please seek testing (and treatment if indicated) from your medical provider or home test kit. For information about the plan of care including goals and instructions for your diagnosis, please see the patient education orders section of this document. Patient Education Materials?? The content of this educational material or handout may have been modified, supplemented, or adapted from its original content and format to support your individualized medical care. Prevention Guidelines, Men Ages 65 and Older Screening tests and vaccines are an important part of managing your health. Health counseling is essential, too. Below are guidelines for these, for men ages 65 and older. Talk with your healthcare provider to make sure you???re up-to-date on what you need. Screening Who needs it How often Abdominal aortic aneurysm Men ages 65 to 75 who have ever smoked 1 ultrasound Alcohol misuse All men in this age group At routine exams Blood pressure All men in this age group Every 2 years if your blood pressure is less than 120/80 mm Hg; yearly if your systolic blood pressure is 120 to 139 mm Hg, or your diastolic blood pressure reading is 80 to 89 mm Hg Colorectal cancer All men in this age group Flexible sigmoidoscopy every 5 years, or colonoscopy every 10 years, or double- contrast barium enema every 5 years; yearly fecal occult blood test or fecal immunochemical test; or a stool DNA test asoften as your healthcare provider advises; talk with your healthcare provider about which tests arebest for you Depression All men in this age group At routine exams Type 2 diabetes or prediabetes All adults beginning at age 45 and adults without symptoms at any age who are overweight or obese and have 1 or more other risk factors for diabetes At least every 3 years Hepatitis C Men at increased risk for infection ??? talk with your healthcare provider At routine exams High cholesterol or triglycerides All men in this age group At least every 5 years HIV Men at increased risk for infection ??? talk with your healthcare provider At routine exams Lung cancer Adults ages 55 to 80 who have smoked Yearly screening in smokers with 30 pack-year history of smoking or who quit within 15 years Obesity All men in this age group At routine exams Prostate cancer All men in this age group, talk to healthcare provider about risks and benefits of digital rectal exam (MAKENNA) and prostate-specific antigen (PSA) screening1 At routine exams Syphilis Men at increased risk for infection ??? talk with your healthcare provider At routine exams Tuberculosis Men at increased risk for infection ??? talk with your healthcare provider Ask your healthcare provider [employer] All men in this age group Every 1 to 2 years; if you have a chronic health condition, ask your healthcare provider if you needs exams more often Vaccine Who needs it How often Chickenpox (varicella) All men in this age group who have no record of this infection or vaccine 2 doses; second dose should be given at least 4 weeks after the first dose Hepatitis A Men at increased risk for infection ??? talk with your healthcare provider 2 doses given at least 6 months apart Hepatitis B Men at increased risk for infection ??? talk with your healthcare provider 3 doses over 6 months; second dose should be given 1 month after the first dose; the third dose should be given at least 2 months after the second dose and at least 4 months after the first dose Haemophilus influenzae Type B (HIB) Men at increased risk for infection ??? talk with your healthcare provider 1 to 3 doses Influenza (flu) All men in this age group Once a year Meningococcal Men at increased risk for infection ??? talk with your healthcare provider 1 or more doses Pneumococcal??conjugate vaccine (PCV13)??and pneumococcal polysaccharide??vaccine (PPSV23) All men in this age group 1 dose of each vaccine Tetanus/diphtheria/ pertussis (Td/Tdap) booster All men in this age group Td every 10 years, or Tdap if you will have contact with a child younger than 12 months old Zoster All men in this age group 1 dose Counseling Who needs it How often Diet and exercise Men??who are overweight or obese When diagnosed, and then at routine exams Fall prevention (exercise, vitamin D supplements) All men in this age group At routine exams Sexually transmitted infection Men at increased risk for infection ??? talk with your healthcare provider At routine exams Use of daily aspirin Men ages 45 to 79 at risk for cardiovascular health problems At routine exams Use of tobacco and the health affects it can cause All men in this age group Every visit [address] [place] [address] [facility] ?? 2012-1412 [employer]. [address] [place] [address], [place] [address]. All rights reserved. This information is not intended as a substitute for professional medical care. Always follow your healthcare professional's instructions. Patient Care team information Care Team Personnel Name: Fredy Sales DO Position: [facility] Physician - Primary Care Member Role: PCP Address: Address: [address] [place] [id number]- Care Team Related Persons Name: WALDO GREEN
[2023-11-02 17:12] LABS: Troponin-I High Sensitivity 5.1 ng/L (<3.5-35.0)
--- NOTE | 2023-11-02 17:16 | ECG_ITS ---
Test Reason : REPEAT Blood Pressure : / mmHG Vent. Rate : 044 BPM Atrial Rate : 044 BPM P-R Int : 214 ms QRS Dur : 114 ms QT Int : 476 ms P-R-T Axes : 018 -26 022 degrees QTc Int : 406 ms Marked sinus bradycardia with 1st degree A-V block Moderate voltage criteria for LVH, may be normal variant ( R in aVL , Ilya product ) Septal infarct (cited on or before 02-NOV-2023) Abnormal ECG When compared with ECG of 02-NOV-2023 11:45, Premature ventricular complexes are no longer Present Questionable change in initial forces of Septal leads Referred By: Shalonda Baig Electronically Signed By:Clay Shay
[2023-11-02 17:47] VITALS: BP 167/70; PULSE 54; RESP 18; TEMP 36.6; O2SAT 99
== END 2023-11-02 17:48 | disposition home or self-care (01) ==
PROVIDERS: Physician Assistant Medical; Emergency Provider Student in an Organized Health Care Education/Training Program; PCP Family Medicine
DX: I10 Essential (primary) hypertension (principal); R07.9 Chest pain, unspecified; I71.40 Abdominal aortic aneurysm, without rupture, unspecified; Z03.818 Encounter for observation for suspected exposure to other biological agents ruled out
CPT/HCPCS: 0241U; 36415; 71046; 80053; 83735; 84484; 85025; 85610; 85730; 93005; 99283

== ENCOUNTER → 2023-11-02 11:39 | Outpatient (BNV) | payer MEDICARE, SELFPAY | PROVIDERS: Emergency Provider Student in an Organized Health Care Education/Training Program; PCP Family Medicine; Visit Provider Internal Medicine Cardiovascular Disease | DX: R07.9 Chest pain, unspecified (principal) | CPT/HCPCS: 93010 ==

== ENCOUNTER → 2023-12-15 10:59 | Outpatient (REF) | payer MEDICARE, SELFPAY ==
--- NOTE | 2023-12-15 11:01 | CA_ITS ---
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 The calculated ejection fraction is 65% by biplane method. - No obvious valvular pathology seen on this study. - There is no dilatation of the sinuses of Valsalva measuring 3.80 cm, severe dilatation of the ascending aorta measuring 5.10 cm, and mild dilatation of the aortic arch measuring 4.10 cm. Findings Left Ventricle Mildly increased left ventricular cavity size. There is normal left ventricular wall thickness. The left ventricular systolic function is normal. The calculated ejection fraction is 65% by biplane method. There is no evidence of regional wall motion abnormalities. Diastolic function is normal for age. LV peak GLS -20.4%. Right Ventricle Moderately increased right ventricular cavity size. There is normal right ventricular systolic function. Atria The left atrium is mildly dilated. The right atrium is normal in size. Aortic Valve There is a normal trileaflet aortic valve. There is mild calcification of the aortic valve. There is no aortic valve stenosis. There is mild aortic valve regurgitation. Mitral Valve The mitral valve appears normal. There is no mitral valve regurgitation. There is no mitral valve stenosis. Pulmonic Valve The pulmonic valve is likely normal. Tricuspid Valve There is trace tricuspid valve regurgitation. There is no evidence of pulmonary hypertension. Great Vessels There is no dilatation of the sinuses of Valsalva measuring 3.80 cm, severe dilatation of the ascending aorta measuring 5.10 cm, and mild dilatation of the aortic arch measuring 4.10 cm. Venous The inferior vena cava was not well visualized. The inferior vena cava is dilated. Pericardium/Pleural There is no evidence of pericardial effusion. Prior Study Comparison Changes noted compared to prior study dated: 06/12/2023. Increase in ascending aortic size. Recommendations, Care & Conclusions No obvious valvular pathology seen on this study. Measurements 2D Linear Measurements IVSd: 0.91 0.6-0.9/0.6-1.0 cm LVIDd: 5.88 3.9-5.3/4.2-5.9 cm LVIDd Index: 2.67 2.4-3.2/2.2-3.1 cm/m2 LVIDs: 3.36 2.0-3.6 cm LVPWd: 1.07 0.7-1.1 cm LA Diam: 5.10 2.7-3.8/3.0-4.0 cm LAIDs Index: 2.32 1.5-2.3 cm/m2 LV Mass: 293.77 67-162/88-224 g LV Mass Index: 133.53 43-95/49-115 g/m2 LVOT Diam: 2.60 3.0+(-)1.3 cm 2D Systolic Function EF 4C: 61.70 >55% EF 2C: 67.40 >55% EF BiP: 64.90 >55% Mitral Valve MV Pk E: 0.68 MV PK A: 0.70 MV Decel Time: 347.00 E/A: 1.00 E'Lateral: 9.14 E'Medial: 5.87 E/E' Med: 11.60 E/E' Lat: 7.50 PHT: 102.00 MVA PHT: 2.16 Decel [place]: 1.96 Aortic Valve AoV Pk Varun: 1.81 AoV Mn Varun: 1.31 AoV VTI: 0.52 AoV Pk Grad: 13.00 Aov Mn Grad: 8.00 THANH Cont.VTI: 3.54 AI Pk Varun: 3.79 AI [place]: 1.07 LVOT LVOT Pk Varun: 1.38 LVOT Mn Varun: 0.87 LVOT VTI: 0.35 LVOT Pk Grad: 8.00 LVOT Mn Grad: 4.00 LVOT Diam: 2.60 LVOT Area: 5.31 Diastolic Function MV Pk E: 0.68 MV Pk A: 0.70 E/A: 1.00 E'Medial: 5.87 E/E' Med: 11.60 E' Laterial: 9.14 E/E' Lat: 7.50 Right Ventricle TAPSE (mm): 25.40 Tricuspid Valve TR Pk Vaurn: 1.77 TR Pk Grad: 13.00 Great Vessels Aorta Sinus of Valsalva: 3.80 2.0-3.5 cm Ao Asc: 5.10 2.1-3.4 cm Ao Arch: 4.10 Pulmonary Valve PV Pk Varun: 1.13 Peak PV Grad: 5.00 Updated in Other Vendor System with Status of Final Micah Rebolledo MD electronically signed on 12/15/2023 1:13:11 PM with status of Final
== END ==
LOC: HO.CARD 10:59
PROVIDERS: PCP Family Medicine; Visit Provider Internal Medicine
DX: I71.20 Thoracic aortic aneurysm, without rupture, unspecified (principal); I10 Essential (primary) hypertension
CPT/HCPCS: 93306; 93356

== ENCOUNTER → 2023-12-15 11:01 | Outpatient (BNV) | payer MEDICARE, SELFPAY | PROVIDERS: PCP Family Medicine; Visit Provider Internal Medicine | DX: I35.1 Nonrheumatic aortic (valve) insufficiency (principal); I71.21 Aneurysm of the ascending aorta, without rupture | CPT/HCPCS: 93306; 93356 ==

== ENCOUNTER 2023-12-17 12:48 | Outpatient (AMB) | payer MEDICARE, SELFPAY ==
[2023-12-17 12:49] VITALS: BP 133/75; PULSE 54; BMI 29.2
--- NOTE | 2023-12-17 12:49 | MHC.OFFVIS ---
Vital Signs 12/17/23 12:49 Height 6 ft Weight 215 lb BMI 29.2 BP 133/75 Blood Pressure Location Lt brachial Position Sitting Pulse 54 Intake Visit Reasons: Crohns disease Intake Note: Billy presents to in office today as a new patient for Crohn's disease. CC: Billy states that his last colonoscopy was about 6-7 years ago and some polyps were removed. Denies having any GI symptoms or concerns today. Patient establishing care with GI as his former GI provider retired and he moved to this area. Community Center Coordinator Required: Yes Accompanied by: Self / Same As Patient Allergies Sulfa (Sulfonamide Antibiotics) [SULFA (SULFONAMIDE ANTIBIOTICS)] Allergy (Unknown, Verified 12/17/23 12:56) HIVES Medication List - Last Reconciled 12/17/23 by Ralf Goldberg MD amlodipine 5 mg PO DAILY 90 days aspirin 81 mg PO DAILY atenolol 50 mg PO DAILY 90 days cholecalciferol (vitamin D3) 25 mcg PO DAILY HPI HPI Crohns disease: Details: Initial GI clinic visit for this 73 YM with HTN and ascending aortic aneurysm for which he gets 6 month ultrasounds (follows with Dr. Toth) referred by Dr Fredy Sales to establish care for Crohn's disease TODAY'S VISIT: Pt is accompanied by his SO Billy presents to in office today as a new patient for Crohn's disease. CC: Billy states that his last colonoscopy was about 6-7 years ago and some polyps were removed. Denies having any GI symptoms or concerns today. Patient establishing care with GI as his former GI provider (Dr Dioni Collins) retired and he moved to this area. Diagnosed with Crohn's disease at age 33 yrs and had 2 feet of small intestine and 4 inches of colon removed 30 yrs ago at [facility] Had diarrhea and severe abdominal pain. Treated with steroids and had to be hospitalized. 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 Patent end-to-end ileocolonic anastomosis in the right colon 2. Diverticulosis in the sigmoid and descending colon. 3. One 6 mm polyp in the descending colon - removed with a cold snare 4. Pseudopolyps in the rectum - biopsied Repeat Colonoscopy was advised in 3 years NEXT COLON DUE: Pt is one year over due for colonoscopy EXTRAINTESTINAL MANIFESTATIONS: None GI SURGERY: Pt had 2 feet of small intestine and 4 inches of colon removed 30 yrs ago at [facility] PAST TREATMENTS: Steroids in the remote past CURRENT THERAPY: No therapy - has noted loose stools since surgery PFSH Medical History HTN (hypertension) Thoracic aortic aneurysm Surgical History H/O colonoscopy Hx of cholecystectomy Family History Father No problems noted. Mother Lung cancer Brother Pancreatic cancer Social History Alcohol intake: current Alcohol intake frequency: holidays/special occasions only Patient Tobacco Use Status: Never used Tobacco Review of Systems Const All systems reviewed & are unremarkable except as noted in HPI and below Physical Exam Vital Signs: Last Vital Signs Pulse 54 12/17/23 12:49 BP 133/75 12/17/23 12:49 BMI result Body Mass Index 29.2 Const General: healthy appearing and no acute distress Nutritional Appearance: overweight Orientation/consciousness: patient oriented x3 Limitations: no limitations HEENT Head: Yes normal to inspection Ears: hearing grossly normal bilaterally Eyes Sclerae: sclerae normal Pupils: Equal, round and reactive pupils present Neck Neck: Yes normal visual inspection Chest Chest palpation & inspection: normal inspection of the chest Resp Effort & Inspection: normal respiratory effort Auscultation: clear to auscultation bilaterally Cardio Palpation: normal PMI Rate: regular rate Rhythm: regular rhythm Heart sounds: S1 normal heart sound present, S2 normal heart sound present and no murmurs GI Palpation (GI): Soft to palpation, nontender and No hepatosplenomegaly present Auscultation: normal bowel sounds Rectal Exam - Male: Yes deferred Skin General skin exam: no rashes or lesions noted Neuro General: patient oriented x3, gait normal and moves all extremities Cranial nerves: Yes Equal, round and reactive pupils present Psych Appearance: grossly normal Mental Status: mental status grossly normal Assessment & Plan Assessment & Plan (1) Chronic diarrhea: Code(s): K52.9 - Noninfective gastroenteritis and colitis, unspecified Category: Medical (2) Crohn's disease of both small and large intestine with rectal bleeding: Code(s): K50.811 - Crohn's disease of both small and large intestine with rectal bleeding Category: Medical (3) Nausea: Code(s): R11.0 - Nausea Category: Medical (4) Chest pain, atypical: Code(s): R07.89 - Other chest pain Category: Medical Plan 73 YM with HTN and ascending aortic aneurysm for which he gets 6 month ultrasounds (follows with Dr. Toth) referred by Dr Fredy Sales to establish care for Crohn's disease Pt also complains of nausea and was seen at [facility] with atypical chest pain Pt was advised to schedule an EGD (evaluation of nausea, atypical CP) and a colonoscopy (IBD surveillance) Pt was advised a trail of ondansetron for nausea and colestipol for diarrhea FU in 6 months Orders: Orders Vitamin D 25-OH Total 12/17/23 K50.811 - Crohn's disease of both small and large intestine with rectal bleeding IRON PROFILE 12/17/23 K50.811 - Crohn's disease of both small and large intestine with rectal bleeding Ferritin 12/17/23 K50.811 - Crohn's disease of both small and large intestine with rectal bleeding C Reactive Protein 12/17/23 K50.811 - Crohn's disease of both small and large intestine with rectal bleeding Vitamin B12 and Folate 12/17/23 K50.811 - Crohn's disease of both small and large intestine with rectal bleeding Complete Blood Count Auto Diff 12/17/23 K50.811 - Crohn's disease of both small and large intestine with rectal bleeding Medications: New ondansetron HCl 4 mg PO BID PRN 60 tabs 1RF nausea and vomiting 60 days R07.89 - Other chest pain, R11.0 - Nausea colestipol 1 g PO BID 60 tabs 1RF 30 days K50.811 - Crohn's disease of both small and large intestine with rectal bleeding, K52.9 - Noninfective gastroenteritis and colitis, unspecified Coding Level of Care Code New Pt Level 4 (63940) Diagnoses Chronic diarrhea K52.9 Crohn's disease of both small and large intestine with rectal bleeding K50.811 Nausea R11.0 Chest pain, atypical R07.89 Time Spent (min) 27
== END 2023-12-17 14:11 | disposition home or self-care (01) ==
PROVIDERS: PCP Family Medicine; Visit Provider Internal Medicine Gastroenterology
DX: K52.9 Noninfective gastroenteritis and colitis, unspecified (principal); K50.811 Crohn's disease of both small and large intestine with rectal bleeding; R11.0 Nausea; R07.89 Other chest pain
CPT/HCPCS: 99204

== ENCOUNTER → 2023-12-17 12:48 | Outpatient (BNVA) | payer MEDICARE, SELFPAY | PROVIDERS: PCP Family Medicine; Visit Provider Internal Medicine Gastroenterology | DX: I71.20 Thoracic aortic aneurysm, without rupture, unspecified (principal); I10 Essential (primary) hypertension; K52.9 Noninfective gastroenteritis and colitis, unspecified; K50.811 Crohn's disease of both small and large intestine with rectal bleeding; R11.0 Nausea; R07.89 Other chest pain; R94.31 Abnormal electrocardiogram [ECG] [EKG] | CPT/HCPCS: 93005; 99202; 99212 ==

== ENCOUNTER 2023-12-17 15:17 | Outpatient (AMB) | payer MEDICARE, SELFPAY ==
[2023-12-17 15:27] VITALS: BP 120/80; PULSE 61; BMI 29.2
--- NOTE | 2023-12-17 15:27 | MHC.OFFVIS ---
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 Recent echocardiogram shows mildly increased ascending aortic size at 5.1 cm. He has symptoms of right-sided chest discomfort for which she recently went to the Emergency was ruled out for acute coronary syndrome with no EKG changes and was suspected to be GI related. He is currently seeing GI physician. He has no exertional chest pain. Does notice slow heart rate when he is walking and he has to wait till his heart rate improves prior to continue to walking up a hill. Denies any shortness of breath, orthopnea, PND. No lightheadedness, syncope. Most of the time blood pressure at home is well controlled. [facility] Medical History HTN (hypertension) Thoracic aortic aneurysm Surgical History H/O colonoscopy Hx of cholecystectomy Family History Father No problems noted. Mother Lung cancer Brother Pancreatic cancer Social History Alcohol intake: current Alcohol intake frequency: holidays/special occasions only Patient Tobacco Use Status: Never used Tobacco Review of Systems Const Denies chills, Denies fatigue, Denies fever(s), Denies frequent falls, Denies weakness, Denies weight gain and Denies weight loss ENT Denies dizziness Card Denies chest pain, Denies leg edema, Denies lightheadedness, Denies palpitations, Denies dyspnea, Denies dyspnea on exertion, Denies orthopnea and Denies other (loss of consciousness) Resp Denies cough, Denies dyspnea and Denies dyspnea on exertion GI Denies hematochezia and Denies change in stool character Musc Denies abnormal gait, Denies muscle weakness, Denies numbness, Denies radiating pain into limb and Denies tingling Neuro Denies abnormal gait, Denies dizziness, Denies frequent falls, Denies numbness, Denies tingling and Denies weakness Endo Denies fatigue and Denies palpitations Physical Exam Vital Signs: Last Vital Signs Pulse 61 12/17/23 15:27 BP 120/80 12/17/23 15:27 BMI result Body Mass Index 29.2 Const General: cooperative, comfortable, no acute distress, alert and awake Nutritional Appearance: average body habitus Orientation/consciousness: patient oriented x3 Limitations: no limitations Neck Neck: Yes trachea midline, Yes supple and Yes no JVD Chest Chest palpation & inspection: normal inspection of the chest Resp Effort & Inspection: normal respiratory effort Auscultation: clear to auscultation bilaterally Cardio Jugular venous distension: no JVD Palpation: normal PMI Rate: regular rate Rhythm: regular rhythm Heart sounds: S1 normal heart sound present, S2 normal heart sound present, no click, no gallops, Murmur heart sound present systolic early, decrescendo and crescendo and no rubs Peripheral pulses: Peripheral pulses 2+ throughout GI Auscultation: normal bowel sounds Skin General skin exam: no rashes or lesions noted Neuro General: patient oriented x3 and no focal motor deficits Extrem General: Yes no clubbing, cyanosis or edema Psych Appearance: grossly normal Office Procedures EKG Details: EKG shows normal sinus rhythm with voltage criteria for LVH [id number], Complete Assessment & Plan Assessment & Plan (1) Thoracic aortic aneurysm: Code(s): I71.2 - Thoracic aortic aneurysm, without rupture Category: Medical Plan: Thoracic aortic aneurysm which has further enlarged by 0.2 cm over the last 6 months. Will follow with limited echocardiogram 6 months time. If it continues to enlarge will pursue a CT aortogram and Cardiothoracic Surgical referral. Will follow up in the clinic in 6 months time. Advised to seek emergency care for sudden-onset severe chest pain. Continue aggressive blood pressure control, see below. Advised to avoid sudden strenuous isometric exercise. He understands management well. Repair at 5.5 cm (2) HTN (hypertension): Code(s): I10 - Essential (primary) hypertension Category: Medical Plan: Hypertension which is currently well optimized advised to monitor blood pressure at home maintain a log. Goal blood pressure less than 130/84 at all times. Advise to avoid salt loading. Advised to maintain adequate hydration. Continue current therapy. Follow up in the clinic in 6 months time, sooner p.r.n.. Thank you for allowing me to partake in his care Orders: Orders CA echo limited 6 Months I71.2 - Thoracic aortic aneurysm, without rupture Coding Level of Care Code Est Pt Level 4 (55294) Diagnoses Thoracic aortic aneurysm I71.2 HTN (hypertension) I10 CPT Codes EKG - CPT: 33999-[id number], Complete ([id number])
== END 2023-12-17 16:28 | disposition home or self-care (01) ==
PROVIDERS: Visit Provider Internal Medicine Cardiovascular Disease
DX: I71.20 Thoracic aortic aneurysm, without rupture, unspecified (principal); I10 Essential (primary) hypertension
CPT/HCPCS: 93010; 99214

== ENCOUNTER 2024-04-28 09:53 | Outpatient (REF) | payer MEDICARE, SELFPAY | END 2024-04-28 09:54 | disposition home or self-care (01) | LOC: HO.HOSX 09:53 | PROVIDERS: Visit Provider Orthopaedic Surgery | DX: M25.562 Pain in left knee (principal); M17.12 Unilateral primary osteoarthritis, left knee | CPT/HCPCS: 73562; 99202 ==

== ENCOUNTER 2024-04-28 12:42 | Outpatient (AMB) | payer MEDICARE, SELFPAY ==
--- NOTE | 2024-04-28 12:48 | A.OFFVIS_ITS ---
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 He describes his pain as sharp and severe in nature. His pain has gotten worse over the last few years in spite of continued non operative treatments. Has had difficulty walking for exercise because of his pain. He has failed the last 3 months of conservative treatment which have consisted of physical therapy exercises, topical creams, Tylenol and anti-inflammatory medicines. At this point his left knee pain is interfering with his activities of daily living and his ability to sleep well through the night. He has had cortisone injections which gave him no relief. He wishes to hold off on total knee replacement surgery for as long as possible. Allergies Sulfa (Sulfonamide Antibiotics) [SULFA (SULFONAMIDE ANTIBIOTICS)] Allergy (Unknown, Verified 04/28/24 12:50) HIVES Medication List - Last Reconciled 04/29/24 by Raymond Owens MD amlodipine 5 mg PO DAILY 90 days aspirin 81 mg PO DAILY atenolol 50 mg PO DAILY 90 days bisacodyl (Dulcolax (bisacodyl)) 20 mg (4 x 5 mg) PO ONCE 1 day cholecalciferol (vitamin D3) 25 mcg PO DAILY colestipol 1 g PO BID 30 days ondansetron HCl 4 mg PO BID PRN 60 days polyethylene glycol 3350 (Miralax) 17 grams PO DAILY 1 day [facility] Medical History HTN (hypertension) Thoracic aortic aneurysm Surgical History H/O colonoscopy Hx of cholecystectomy Family History Father No problems noted. Mother Lung cancer Brother Pancreatic cancer Social History Alcohol intake: current Alcohol intake frequency: holidays/special occasions only Patient Tobacco Use Status: Never used Tobacco Physical Exam Vital Signs: BMI result Body Mass Index 29.2 Const Other: Well-nourished well-developed very friendly male awake alert and oriented x3 in no acute distress Extrem Other: Bilateral lower extremity examination shows good capillary refill, no skin lesions noted, normal sensation light touch Left knee examination shows a minimal effusion, palpable crepitus with range of motion, pain with range of motion, range of motion from -3 degrees to 115 degrees, no instability Results Reviewed Results Reviewed: X-rays of the patient's left knee show joint space narrowing, subchondral sclerosis, no acute bony abnormalities Assessment & Plan Assessment & Plan (1) Osteoarthritis of left knee: Code(s): M17.12 - Unilateral primary osteoarthritis, left knee Category: Medical Plan Mr. Rogel presents with progressively worsening left knee pain due to osteoarthritis. I had a lengthy discussion with the patient regarding the treatment options. The patient wishes to hold off on surgery for as long as possible. I agree with this plan. I will see whether or not the patient's insurance company will cover a viscosupplementation injection, such as Durolane. I will see him back once the injection is available. Feel free to call me at any time should questions regarding his orthopedic management arise. Thank you very much for asking me to see this very friendly gentleman. I spent 22 minutes in reviewing the patient's records and imaging studies, seeing the patient and documenting in the medical record. Orders: Orders XR knee LT 3V 04/28/24 M25.562 - Pain in left knee Coding Level of Care Code New Pt Level 3 (53559) Complex EM visit Add On G2211 Diagnoses Osteoarthritis of left knee M17.12
[2024-04-28 12:50] VITALS: BMI 29.2
== END 2024-04-28 13:12 | disposition home or self-care (01) ==
LOC: HO.HOS 12:42
PROVIDERS: PCP Family Medicine; Visit Provider Orthopaedic Surgery
DX: M17.12 Unilateral primary osteoarthritis, left knee (principal)
CPT/HCPCS: 99203; G2211

== ENCOUNTER 2024-05-11 07:32 | Outpatient (AMB) | payer MEDICARE, SELFPAY ==
[2024-05-11 07:37] VITALS: BMI 29.2
--- NOTE | 2024-05-11 07:37 | MHC.OFFVIS ---
Vital Signs 05/11/24 07:37 Height 6 ft Weight 215 lb BMI 29.2 Intake Visit Reasons: Left knee pain Intake Note: Billy is a 73 yo male who presents with complaints of progressively worsening left knee pain. He describes his pain as sharp and severe in nature. His pain has gotten worse over the last few years in spite of continued non operative treatments. Has had difficulty walking for exercise because of his pain. He has failed the last 3 months of conservative treatment which have consisted of physical therapy exercises, topical creams, Tylenol and anti-inflammatory medicines. At this point his left knee pain is interfering with his activities of daily living and his ability to sleep well through the night. He has had cortisone injections which gave him no relief. He wishes to hold off on total knee replacement surgery for as long as possible. Allergies Sulfa (Sulfonamide Antibiotics) [SULFA (SULFONAMIDE ANTIBIOTICS)] Allergy (Unknown, Verified 05/11/24 07:37) HIVES Medication List - Last Reconciled 05/11/24 by Raymond Owens MD amlodipine 5 mg PO DAILY 90 days aspirin 81 mg PO DAILY atenolol 50 mg PO DAILY 90 days bisacodyl (Dulcolax (bisacodyl)) 20 mg (4 x 5 mg) PO ONCE 1 day cholecalciferol (vitamin D3) 25 mcg PO DAILY colestipol 1 g PO BID 30 days ondansetron HCl 4 mg PO BID PRN 60 days polyethylene glycol 3350 (Miralax) 17 grams PO DAILY 1 day PFS Medical History HTN (hypertension) Thoracic aortic aneurysm Surgical History H/O colonoscopy Hx of cholecystectomy Family History Father No problems noted. Mother Lung cancer Brother Pancreatic cancer Social History Alcohol intake: current Alcohol intake frequency: holidays/special occasions only Patient Tobacco Use Status: Never used Tobacco Physical Exam Vital Signs: BMI result Body Mass Index 29.2 Const Other: Well-nourished well-developed very friendly male awake alert and oriented x3 in no acute distress Extrem Other: Bilateral lower extremity examination shows good capillary refill, no skin lesions noted, normal sensation light touch Left knee examination shows a minimal effusion, palpable crepitus with range motion, pain with range of motion, range of motion from -3 degrees to 120 degrees Office Procedures AMB Joint Injection/Aspiration Joint Injection/Aspiration Primary Site: left knee Prep: site was prepped using aseptic technique Injected: 60 mg of (Durolane viscosupplementation) and 1% plain lidocaine Procedure: The patient tolerated the procedure well Coding - Large joint Procedure code (CPT) selection complete Results Reviewed Results Reviewed: X-rays of the patient's left knee taken previously show joint space narrowing, subchondral sclerosis, no acute bony abnormalities Assessment & Plan Assessment & Plan (1) Osteoarthritis of left knee: Code(s): M17.12 - Unilateral primary osteoarthritis, left knee Category: Medical (2) Left knee pain: Code(s): M25.562 - Pain in left knee Category: Medical Plan Mr. Holman presents with left knee pain due to osteoarthritis. I had a lengthy discussion with the patient regarding the treatment options. The risks and benefits of a Durolane viscosupplementation injection were discussed at length with the patient. The patient wished to proceed. He tolerated the injection well. Will continue with his home exercise program. He will contact me prior to his follow-up appointment in 3 months should any questions or concerns arise. Feel free to call me at any time should questions regarding his orthopedic management arise. I spent 21 minutes in reviewing the patient's records and imaging studies, seeing the patient and documenting in the medical record. Orders: Orders AMB Joint Injection/Aspiration Today M17.12 - Unilateral primary osteoarthritis, left knee Coding Level of Care Code Est Pt Level 3 (30651) Complex EM visit Add On G2211 Diagnoses Osteoarthritis of left knee M17.12 Left knee pain M25.562 CPT Codes Coding - Large joint: 47710 - Large joint ([id number])
== END 2024-05-11 08:01 | disposition home or self-care (01) ==
PROVIDERS: PCP Family Medicine; Visit Provider Orthopaedic Surgery
DX: M17.12 Unilateral primary osteoarthritis, left knee (principal)
CPT/HCPCS: 20610; 99213

== ENCOUNTER → 2024-05-11 07:32 | Outpatient (BNVA) | payer MEDICARE, SELFPAY | PROVIDERS: PCP Family Medicine; Visit Provider Orthopaedic Surgery | DX: M17.12 Unilateral primary osteoarthritis, left knee (principal); M25.562 Pain in left knee | CPT/HCPCS: 20610; 99212; J2003; J7318 ==

== ENCOUNTER → 2024-06-13 09:58 | Outpatient (REF) | payer MEDICARE, SELFPAY ==
--- NOTE | 2024-06-13 10:00 | CA_ITS ---
Transthoracic Echocardiogram Patient (Last, First, Middle): Billy Holman Le Grand Gender: Male Date of : 1950 Age: 73 Procedure Date: 06/13/2024 Procedure Type: Transthoracic Echocardiogram Location: OP Height: 182.88 cm Weight: 98.88 kg BSA: 2.21 m2 Heart Rate: bpm BP: 116 / 56 mmHg Slackman: Referring MD: Moe Toth MD Symptoms: I71.2 - Thoracic aortic aneurysm, without rupture Study Quality: Adequate ECG Rhythm: Sinus Conclusions: - The left ventricular systolic function is normal. The calculated ejection fraction is 59% by biplane method. - There is moderate dilatation of the ascending aorta measuring 4.80 cm. Findings Left Ventricle Normal left ventricular cavity size. The left ventricular systolic function is normal. The calculated ejection fraction is 59% by biplane method. There is no evidence of regional wall motion abnormalities. Great Vessels There is moderate dilatation of the ascending aorta measuring 4.80 cm. Prior Study Comparison Changes noted compared to prior study dated: 12/15/2023. Ascending aorta dimensions slightly smaller than prior study, but could also be technical. Consider CTA for further evaluation. Measurements 2D Linear Measurements IVSd: 1.25 0.6-0.9/0.6-1.0 cm LVIDd: 5.23 3.9-5.3/4.2-5.9 cm LVIDd Index: 2.37 2.4-3.2/2.2-3.1 cm/m2 LVIDs: 3.46 2.0-3.6 cm LVPWd: 1.27 0.7-1.1 cm Ao Root: 3.70 2.1-3.5 cm LV Mass: 335.33 67-162/88-224 g LV Mass Index: 151.73 43-95/49-115 g/m2 2D Systolic Function EF 4C: 56.10 >55% EF 2C: 60.90 >55% EF BiP: 59.40 >55% Great Vessels Aorta Ao Root-2D: 3.70 2.0-3.7 cm Ao Asc: 4.80 2.1-3.4 cm Updated in Other Vendor System with Status of Final Micah Rebolledo MD electronically signed on 06/13/2024 11:33:35 AM with status of Final
== END ==
LOC: HO.CARD 09:58
PROVIDERS: PCP Family Medicine; Visit Provider Internal Medicine
DX: I71.20 Thoracic aortic aneurysm, without rupture, unspecified (principal)
CPT/HCPCS: 93308

== ENCOUNTER → 2024-06-13 10:00 | Outpatient (BNV) | payer MEDICARE, SELFPAY | PROVIDERS: PCP Family Medicine; Visit Provider Internal Medicine | DX: I71.21 Aneurysm of the ascending aorta, without rupture (principal) | CPT/HCPCS: 93308 ==

== ENCOUNTER 2024-06-27 12:27 | Outpatient (AMB) | payer MEDICARE, SELFPAY ==
[2024-06-27 12:30] VITALS: BP 110/72; PULSE 63; BMI 29.6
--- NOTE | 2024-06-27 12:30 | A.OFFVIS_ITS ---
Vital Signs 06/27/24 12:30 Height 6 ft Weight 218 lb BMI 29.6 BP 110/72 Blood Pressure Location Lt brachial Position Sitting Pulse 63 Intake Visit Reasons: r/s 06/20 6 mos followup after echo Intake Note: 6 month follow-up after echo feeling good Scientific Linguist Required: No Allergies Sulfa (Sulfonamide Antibiotics) [SULFA (SULFONAMIDE ANTIBIOTICS)] Allergy (Unknown, Verified 05/11/24 07:37) HIVES Medication List - Last Reconciled 06/27/24 by Moe Toth MD amlodipine 5 mg PO DAILY 90 days aspirin 81 mg PO DAILY atenolol 50 mg PO DAILY 90 days bisacodyl (Dulcolax (bisacodyl)) 20 mg (4 x 5 mg) PO ONCE 1 day cholecalciferol (vitamin D3) 25 mcg PO DAILY ondansetron HCl 4 mg PO BID PRN 60 days polyethylene glycol 3350 (Miralax) 17 grams PO DAILY 1 day HPI Comments Details: Billy comes for follow-up. Recent limited echocardiogram shows ascending aorta at 4.8 cm which was smaller than measured before. Scheduled for a chest CTA for further evaluation July. Denies any exertional chest pain. No sudden onset retrosternal chest pain. Genetic study did not show any clear genetic abnormality. Denies any other cardiac symptoms. Scheduled to undergo GI workup for lower retrosternal, epigastric discomfort with acid reflux symptoms. No heart failure symptoms. Blood pressure remains well controlled. [facility] Medical History HTN (hypertension) Thoracic aortic aneurysm Surgical History H/O colonoscopy Hx of cholecystectomy Family History Father No problems noted. Mother Lung cancer Brother Pancreatic cancer Social History Alcohol intake: current Alcohol intake frequency: holidays/special occasions only Patient Tobacco Use Status: Never used Tobacco Review of Systems Const Denies chills, Denies fatigue, Denies fever(s), Denies frequent falls, Denies weakness, Denies weight gain and Denies weight loss ENT Denies dizziness Card Denies chest pain, Denies leg edema, Denies lightheadedness, Denies palpitations, Denies dyspnea, Denies dyspnea on exertion, Denies orthopnea and Denies other (loss of consciousness) Resp Denies cough, Denies dyspnea and Denies dyspnea on exertion GI Denies hematochezia and Denies change in stool character Musc Denies abnormal gait, Denies muscle weakness, Denies numbness, Denies radiating pain into limb and Denies tingling Neuro Denies abnormal gait, Denies dizziness, Denies frequent falls, Denies numbness, Denies tingling and Denies weakness Endo Denies fatigue and Denies palpitations Physical Exam Vital Signs: Last Vital Signs Pulse 63 06/27/24 12:30 BP 110/72 06/27/24 12:30 BMI result Body Mass Index 29.6 Const General: cooperative, comfortable, no acute distress, alert and awake Nutritional Appearance: average body habitus Orientation/consciousness: patient oriented x3 Limitations: no limitations Neck Neck: Yes trachea midline, Yes supple and Yes no JVD Chest Chest palpation & inspection: normal inspection of the chest Resp Effort & Inspection: normal respiratory effort Auscultation: clear to auscultation bilaterally Cardio Jugular venous distension: no JVD Palpation: normal PMI Rate: regular rate Rhythm: regular rhythm Heart sounds: S1 normal heart sound present, S2 normal heart sound present, no click, no gallops, Murmur heart sound present systolic early, decrescendo and crescendo and no rubs Peripheral pulses: Peripheral pulses 2+ throughout GI Auscultation: normal bowel sounds Skin General skin exam: no rashes or lesions noted Neuro General: patient oriented x3 and no focal motor deficits Extrem General: Yes no clubbing, cyanosis or edema Psych Appearance: grossly normal Assessment & Plan Assessment & Plan (1) Thoracic aortic aneurysm: Code(s): I71.2 - Thoracic aortic aneurysm, without rupture Category: Medical Plan: Thoracic aortic aneurysm without any obvious genetic abnormalities noted. Will continue monitor clinically. Moderately enlarged with some discrepancy in measurement of size. Scheduled for undergoing thoracic CTA in near future. Will continue to observe as long as the measured size is less than 5.5 cm. At that point time will refer him for Cardiothoracic Surgical evaluation to repair his aneurysm. Management was discussed. Aggressive blood pressure control, see below. Avoidance of sudden strenuous isometric exercise was discussed. Advised to seek emergency care for sudden-onset severe tearing chest pain. (2) HTN (hypertension): Code(s): I10 - Essential (primary) hypertension Category: Medical Plan: Hypertension which is currently well optimized. Importance of good blood pressure control was discussed. Continue current therapy with atenolol and amlodipine. Target goal blood pressure less than 130/84 and closer to 120 systolic if possible. Continue low-dose aspirin therapy. Advised to avoid sudden strenuous isometric exercise. Low-salt diet was discussed. Will follow up in the clinic in 6 months time, sooner p.r.n.. Thank you for allowing me to partake in his care Orders: Orders CA echo transthoracic complete 6 Months I71.2 - Thoracic aortic aneurysm, without rupture Coding Level of Care Code Est Pt Level 4 (02492) Complex EM visit Add On G2211 Diagnoses Thoracic aortic aneurysm I71.2 HTN (hypertension) I10
== END 2024-06-27 12:48 | disposition home or self-care (01) ==
PROVIDERS: PCP Family Medicine; Visit Provider Internal Medicine Cardiovascular Disease
DX: I71.20 Thoracic aortic aneurysm, without rupture, unspecified (principal); I10 Essential (primary) hypertension
CPT/HCPCS: 99214; G2211

== ENCOUNTER → 2024-06-27 12:27 | Outpatient (BNVA) | payer MEDICARE, SELFPAY | PROVIDERS: PCP Family Medicine; Visit Provider Internal Medicine Cardiovascular Disease | DX: I71.20 Thoracic aortic aneurysm, without rupture, unspecified (principal); I10 Essential (primary) hypertension | CPT/HCPCS: 99212 ==

== ENCOUNTER 2024-07-01 10:14 | Day surgery (SDC) | payer MEDICARE, SELFPAY ==
--- NOTE | 2024-06-30 11:06 | HO.ANESPROP2 ---
HPI - Anesthesia Eval Consult details Narrative: 73yo M for Upper Endoscopy and Colonoscopy Follows [facility] [place] Cardiology for HTN, TAA. Stable at 05/2024 office visit PMFSH Active Problems Active Problems: All Active Problems Osteoarthritis of left knee (Acute) Left knee pain (Acute) Chest pain, atypical (Acute) Nausea (Acute) Crohn's disease of both small and large intestine with rectal bleeding (Acute) Chronic diarrhea (Acute) HTN (hypertension) (Acute) Thoracic aortic aneurysm (Acute) Past Medical History Medical History HTN (hypertension) Thoracic aortic aneurysm Family History Family History Father No problems noted. Mother Lung cancer Brother Pancreatic cancer Surgical History Surgical History H/O colonoscopy Hx of cholecystectomy Social History Social History Alcohol intake: current Alcohol intake frequency: holidays/special occasions only Patient Tobacco Use Status: Never used Tobacco Meds Allergies Allergy/AdvReac Type Severity Reaction Status Date / Time Sulfa (Sulfonamide Allergy Unknown HIVES Verified 05/11/24 07:37 Antibiotics) [SULFA (SULFONAMIDE ANTIBIOTICS)] Home Medications ?Medication ?Instructions ?Recorded ?Confirmed ?Last Taken ?Type aspirin 81 mg tablet,delayed 81 mg PO DAILY 06/05/21 06/27/24 Unknown History release cholecalciferol (vitamin D3) 25 25 mcg PO DAILY 12/02/22 06/27/24 Unknown History mcg (1,000 unit) capsule Exam Narrative Narrative: ECHO 2023 Conclusions: - The left ventricular systolic function is normal. The calculated ejection fraction is 59% by biplane method. - There is moderate dilatation of the ascending aorta measuring 4.80 cm Assessment and Plan Assessment Anesthesia Assessment: Chart Reviewed
[2024-07-01 10:38] VITALS: BP 139/69; PULSE 45; RESP 16; TEMP 36.7; O2SAT 98; BMI 29.2
[2024-07-01] MEDS: Lactated Ringers 1,000 ML 100 ML IVCONT (10:50)
--- NOTE | 2024-07-01 11:02 | MHC.SHP ---
Pre-Procedural Eval Section A - 24 Hr Update-Section A only Date of Service: 07/01/24 The patient is an INPATIENT: No The patient has been examined within 24 hours of the surgical procedure. The History & Physical has been completed within 30 days and I have reviewed it.: No Section B - Complete if H&P > 30 days Chief Complaint: Screening, Crohn's disease surveillance, nausea Relevant Family History (Specify if Yes): No Relevant Social History: None Present Medications: see Short Stay Collaborative assessment Medical History: Significant History (HTN (hypertension) Thoracic aortic aneurysm, Crohn's disease) History of Previous Operations: Relevant previous surgery/procedure and date(s) (H/O colonoscopy Hx of cholecystectomy) Allergies: Allergies Allergy/AdvReac Type Severity Reaction Status Date / Time Sulfa (Sulfonamide Allergy Unknown HIVES Verified 05/11/24 07:37 Antibiotics) [SULFA (SULFONAMIDE ANTIBIOTICS)] Review of Systems Sugical H&P ROS: Negative: Constitution, Cardiovascular, Respiratory and Gastrointestinal Exam Surgical H&P Exam: Normal: Heart, Normal: Lungs, Normal: Extremities and Normal: Abdomen Plan Diagnosis/Plan: Unchanged I have reviewed the history and physical and performed a pertinent physical examination on my patient. No changes have occurred unless specified. Time Spent With Patient Time: Total time managing care of this patient today ____ minutes.
--- NOTE | 2024-07-01 12:07 | P.OPN-COLO_ITS ---
Colonoscopy Operative Note Operative Note Date of Service: 07/01/24 Narrative: FLEXIBLE TRANSORAL UPPER GASTROINTESTINAL ENDOSCOPY WITH BIOPSIES AND COLONOSCOPY TILL CECUM WITH BIOPSIES, SNARE POLYPECTOMY, SUBMUCOSAL INJECTION AND CHROMOENDOSCOPY Pre-op diagnosis: Surveillance for colon polyps and Crohn's disease, nausea, atypical chest pain Post-op diagnosis: Gastritis, multiple gastric ulcers, Colon Polyps, Diverticulosis, hemorrhoids ? Endoscopist:? Ralf Goldberg MD Anesthesia:?MAC UPPER ENDOSCOPY Consent: Indications for the procedure and potential complications of bleeding, perforation, reaction to medications and missed diagnosis were discussed with the patient and informed consent was obtained. Instrument: Olympus GIF H 190 mid size upper endoscope Monitoring: Vital signs and clinical assessment, continuous EKG monitoring, Pulse oximetry, Carbon Dioxide monitoring and blood pressure monitoring were done throughout the procedure. Procedure: The patient was placed in the left lateral decubitis position and pre-procedure medications were administered and a bite block was placed. The endoscope was inserted into the mouth and advanced under direct vision to the third part of duodenum. A careful inspection was made as the upper endoscope was withdrawn including a retroflexed examination of the proximal stomach; Findings and interventions are described below. Findings: Larynx: Normal Esophagus: GE junction at 40 cms. No esophagitis or Gibbons's. Stomach: Moderate diffuse gastric erythema - biopsies were obtained from the antrum. Three 1 -2 cms linear non-bleeding ulcers in the pre-pyloric area covered with some heme - biopsied. Grade 2 flap valve on retroflexed examination of the cardia. Duodenum: Normal bulb and descending duodenum Intervention: Biopsies as noted above COLONOSCOPY PROCEDURE NOTE Instrument: Olympus CF H 190 L variable stiffness adult colonoscope Monitoring: Vital signs and clinical assessment, intermittent blood pressure monitoring, continuous EKG monitoring, Pulse oximetry and Carbon Dioxide monitoring were done throughout the procedure. Please see anesthesia flowsheet. Colon withdrawl time was 30 minutes. Procedure: The patient was placed in the left lateral decubitis position and pre-procedure medications were administered. After a digital rectal examination of the ano-rectum, the video colonoscope was inserted into the rectum and advanced through the colon to the ened to end ileo-colic anastomosis at 100 cms. The colonoscope was slowly withdrawn in a retrograde panoramic fashion and the colon mucosa was carefully examined including a retroflexed view of the rectum. Findings and interventions are described below. Procedure Difficulty: without difficulty Findings: Ileo-colic anastomosis: Friable mucosa with a few scattered ulcers at the anastomosis - biopsied Unable to pass the adult colonoscope through the anastomosis Ascending Colon: A 15 to 18 mm sessile polyp at 90 cms - removed with a stiff hot snare. Margins of polypectomy site treated with cautery using the snare tip and polypectomy site was marked with Endo monica Transverse Colon: Normal Descending Colon: Moderate diverticulosis Sigmoid Colon: Moderate diverticulosis Rectum: A 3-4 mm sessile polyp - removed with a cold biopsyl Ano-rectum: Moderate internal hemorrhoids Colon preparation: , Good after copious irrigation. [place] Bowel Preparation Scale Right colon; 2 Transverse colon: 2 Left colon; 2 (0 = Unprepared colon segment with mucosa not seen due to solid stool that cannot be cleared. 1 = Portion of mucosa of the colon segment seen, but other areas of the colon segment not well seen due to staining, residual stool and/or opaque liquid. 2 = Minor amount of residual staining, small fragments of stool and/or opaque liquid, but mucosa of colon segment seen well. 3 = Entire mucosa of colon segment seen well with no residual staining, small fragments of stool or opaque liquid) Impression and Post Procedure Diagnosis: Endoscopy Findings: ESOPHAGUS: Normal STOMACH: Moderate diffuse gastric erythema - biopsies were obtained from the antrum. Three 1 -2 cms linear non-bleeding ulcers in the pre-pyloric area covered with some heme - biopsied. DUODENUM: Normal Colonoscopy Findings: One small and one medium sized polyps were removed Moderate diverticulosis seen in the left colon Moderate hemorrhoids on retroflexed exam. Plan: Pt has a FU appointment on 07/14/[address] Goldberg Repeat Colonoscopy in 1 years if polyps are adenomatous and for follow-up of Crohn's disease Above findings were reviewed with the patient and relevant handouts were given and the discharge area. Patient was advised to start omeprazole 20 mg daily for gastric ulcers. BIOPSIES SHOWED: A. Gastric antrum, biopsy: Gastric antral mucosa with mild reactive changes and minimal chronic inactive gastritis; negative for intestinal metaplasia and dysplasia. B. Gastric ulcer, biopsy: Active erosive gastritis with reactive changes and minimal chronic inflammation; negative for intestinal metaplasia and dysplasia. C. Colon, anastomosis, biopsy: Chronic colitis with mild activity; negative for dysplasia. D. Colon, ascending, biopsy: Colonic mucosa with lamina propria hemorrhage and minor crypt distortion, otherwise no specific change; negative for dysplasia. E. Colon, ascending, polyp: Tubular adenoma with serrated features; negative for high-grade dysplasia and carcinoma (see comment). F. Colon, transverse, biopsy: Colonic mucosa with lymphoid aggregate and minor crypt distortion, otherwise no specific change; negative for dysplasia. D. Colon, descending, biopsy: Colonic mucosa with no specific change; negative for dysplasia. H. Colon, sigmoid, biopsy: Colonic mucosa with lymphoid aggregate and hyperplastic changes; negative for dysplasia. I. Colon, rectal polyp, biopsy: Hyperplastic polyp; negative for dysplasia. J. Colon, rectum, biopsy: Colonic mucosa with crypt distortion and hyperplastic changes; negative for dysplasia Letter sent advising repeat EGD in 3-4 months to confirm gastric ulcers have healed. Repeat colonoscopy in 1 year to check polypectomy site in the ascending colon and for UC surveillance. Patient was placed on the colonoscopy recall list.
--- NOTE | 2024-07-01 12:37 | P.CONAN_ITS ---
[facility] Active Problems Active Problems: All Active Problems Osteoarthritis of left knee (Acute) Left knee pain (Acute) Chest pain, atypical (Acute) Nausea (Acute) Crohn's disease of both small and large intestine with rectal bleeding (Acute) Chronic diarrhea (Acute) HTN (hypertension) (Acute) Thoracic aortic aneurysm (Acute) Past Medical History Medical History HTN (hypertension) Thoracic aortic aneurysm Functional capacity: independent ambulation Family History Family History Father No problems noted. Mother Lung cancer Brother Pancreatic cancer Surgical History Surgical History H/O colonoscopy Hx of cholecystectomy Social History Social History Are you a primary careers adviser to a significant other at home: No Do you presently have visiting nurse or other home services: No Alcohol intake: current Alcohol intake frequency: holidays/special occasions only Patient Tobacco Use Status: Never used Tobacco Use of substances other than those prescribed or required for medical reasons: No Have you been hit, kicked, punched, or otherwise hurt by someone within the past year? If so, by whom?: No Are you DNR?: No Advance Directives: No Advance Directives Information Provided: Yes Recently lost weight without trying: No Meds Allergies Allergy/AdvReac Type Severity Reaction Status Date / Time Sulfa (Sulfonamide Allergy Unknown HIVES Verified 05/11/24 07:37 Antibiotics) [SULFA (SULFONAMIDE ANTIBIOTICS)] Active Medications: Current Medications Lactated Ringer's (Lr) 1,000 mls @ 100 mls/hr IVCONT .Q10H JUDD Last Admin: 07/01/24 10:50 Dose: 100 mls/hr Home Medications ?Medication ?Instructions ?Recorded ?Confirmed ?Last Taken ?Type aspirin 81 mg tablet,delayed 81 mg PO DAILY 06/05/21 06/27/24 Unknown History release cholecalciferol (vitamin D3) 25 25 mcg PO DAILY 12/02/22 06/27/24 Unknown History mcg (1,000 unit) capsule Exam Height,Weight and Vital Signs: Height 6 ft Weight 97.522 kg Last Vital Signs Temp 98.0 F 07/01/24 10:38 Pulse 45 L 07/01/24 10:38 Resp 16 07/01/24 10:38 BP 139/69 07/01/24 10:38 Pulse Ox 98 07/01/24 10:38 O2 Del Method Room Air 07/01/24 10:38 Airway Mallampati Class: II TM Dist: >3cm Neck ROM: Full Heart: RRR Lungs: CTA Assessment and Plan Assessment Anesthesia Assessment: Anesthesia Plan Discussed, Smoking Cess. Discussed and Chart Reviewed Anesthetic Plan Anesthetic Plan: MAC: Disposition: Standard PACU
[2024-07-01 12:58] VITALS: BP 109/65; PULSE 53; RESP 16; TEMP 36.4; O2SAT 96
--- NOTE | 2024-07-01 13:11 | HO.POSTANES ---
Post Anesthesia Evaluation Post Anesthesia Evaluation Date of Service: 07/01/24 Vital Signs: Vital Signs Temp Pulse Resp BP Pulse Ox O2 Del Method O2 Flow Rate 07/01/24 12:58 97.5 F 53 16 109/65 96 Simple Mask 5 07/01/24 10:38 98.0 F 45 L 16 139/69 98 Room Air Anesthesia: Monitored Mental Status: Awake Pain Control: Satisfactory Nausea/Vomiting: None Hydration: Adequate Anesthesia-Related Issues: No Anes. Related Issues
[2024-07-01 13:13] VITALS: BP 104/64; PULSE 45; RESP 16; O2SAT 98
[2024-07-01 13:28] VITALS: BP 115/64; PULSE 47; RESP 16; TEMP 36.3; O2SAT 97
== END 2024-07-01 14:12 | disposition home or self-care (01) ==
PROVIDERS: PCP Family Medicine; Visit Provider Internal Medicine Gastroenterology
PROC: (CPT 45385; principal; 2024-07-01 12:20)
DX: Z12.11 Encounter for screening for malignant neoplasm of colon (principal); Z86.0101 Personal history of adenomatous and serrated colon polyps; D12.2 Benign neoplasm of ascending colon; K62.1 Rectal polyp; Z98.0 Intestinal bypass and anastomosis status; K57.30 Diverticulosis of large intestine without perforation or abscess without bleeding; K64.8 Other hemorrhoids; K25.9 Gastric ulcer, unspecified as acute or chronic, without hemorrhage or perforation; R11.0 Nausea; K50.90 Crohn's disease, unspecified, without complications; K29.50 Unspecified chronic gastritis without bleeding; R07.89 Other chest pain; I10 Essential (primary) hypertension; I71.20 Thoracic aortic aneurysm, without rupture, unspecified; Z79.82 Long term (current) use of aspirin; Z79.899 Other long term (current) drug therapy; Z88.2 Allergy status to sulfonamides; Z90.49 Acquired absence of other specified parts of digestive tract
CPT/HCPCS: 45385; 45380; 45381; 43239; 88305; 88342; J1596; J2003; J2704; Q9968

== ENCOUNTER → 2024-07-01 10:14 | Outpatient (BNV) | payer MEDICARE, SELFPAY | PROVIDERS: PCP Family Medicine; Visit Provider Internal Medicine Gastroenterology | DX: Z12.11 Encounter for screening for malignant neoplasm of colon (principal); Z86.0100 Personal history of colon polyps, unspecified; K62.1 Rectal polyp; K50.811 Crohn's disease of both small and large intestine with rectal bleeding; K57.90 Diverticulosis of intestine, part unspecified, without perforation or abscess without bleeding; D12.2 Benign neoplasm of ascending colon; K29.70 Gastritis, unspecified, without bleeding; K25.9 Gastric ulcer, unspecified as acute or chronic, without hemorrhage or perforation | CPT/HCPCS: 43239; 45380; 45381; 45385 ==

== ENCOUNTER → 2024-07-14 11:27 | Outpatient (BNVA) | payer MEDICARE, SELFPAY | PROVIDERS: PCP Family Medicine; Visit Provider Internal Medicine Gastroenterology | DX: K25.9 Gastric ulcer, unspecified as acute or chronic, without hemorrhage or perforation (principal); R11.0 Nausea; K50.811 Crohn's disease of both small and large intestine with rectal bleeding; N52.9 Male erectile dysfunction, unspecified | CPT/HCPCS: 99212 ==

== ENCOUNTER 2024-07-22 10:55 | Outpatient (REF) | payer MEDICARE, SELFPAY ==
--- OUTSIDE RECORDS SUMMARY | 2024-07-22 12:57 | XMS_ITS ---
Author Organization [facility] [place] Address [address] [place] [address] Care Team Providers Care Floor Layer Apprentice Name Role Phone Fredy Sales MD Primary Care Provider UnavailEugenia Florez Unavailable [phone] Allergies Allergen (clinical drug ingredient) Drug/Non Drug Allergy documented on EMR Reaction Allergy Type Onset Date Status Substance with sulfonamide structure and antibacterial mechanism of action (substance) Sulfa Antibiotics hives Drug Allergy Active REASON FOR VISIT Painful nail(s) aggrevated by shoes causing difficulty standing/walking, Skin Problem, Foot pain Medications Medication SIG (Take, Route, Frequency, Duration) Notes Start Date End Date Status Aspir-81 Active Atenolol 50 MG 1 tablet Orally Once a day Active Vitamin D Active Ciclopirox Olamine 0.77 % 1 application Externally Twice a day for 30 days Active amLODIPine Besylate 5 MG 1 tablet Orally Once a day Active Social History Tobacco Use: Social History Observation Description Date Details (start date - stop date) Never Smoker NA - NA Tobacco Use/Smoking Question Answer Notes Are you a: nonsmoker Additional Findings: Tobacco Non-User Current no n-smoker Alcohol Screen Question Answer Notes Did you have a drink contain ing alcohol in the past year? Yes How often did you have a dri nk containing alcohol in the past year? 2 to 4 times a month (2 points) Points 2 Interpretation Negative Tobacco use other than smoking: Question Answer Notes Are you an other tobacco user? No Vital Signs Height 6ft in 03/29/2024 Weight 217 lbs 03/29/2024 BMI 29.43 kg/m2 03/29/2024 Blood pressure systolic 140 mm Hg 03/29/20 24 Blood pressure diastolic 78 mm Hg 024 Encounters Encounter Location Date Provider Diagnosis [facility] [place] [address] 03/29/2024 Eugenia Azar Pain in right foot M79.671 ; 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 ; Tinea unguium B35.1 ; Pain in right toe(s) M79.674 ; Pain in left toe(s) M79.675 and Tinea pedis of both feet B35.3 Assessments Encounter Date Diagnosis (ICD Code) Assessment Notes Treatment Notes Treatment Clinical Notes Section Notes 03/29/2024 Pain in right foot (ICD-10 - M79.671) 03/29/2024 Brown's neuroma of right foot (ICD-10 - G57.61) 03/29/2024 Tinea unguium (ICD-10 - B35.1) 03/29/2024 Pain in right toe(s) (ICD-10 - M79.674) 03/29/2024 Pain in left toe(s) (ICD-10 - M79.675) 03/29/2024 Tinea pedis of both feet (ICD-10 - B35.3) Plan Of Treatment Medication Medication Name Sig Start Date Stop Date Notes Ciclopirox Olamine 0.77 % 1 application Externally Twice a day for 30 days Next Appt Details Follow Up: 3 Months, Reason: Provider Name:Eugenia sarmiento, 10/07/2024 11:00:00 AM, [address] [place] [address], [phone], Procedure Notes * Category Sub-Category Detail Notes Debride Nail 6-10 Nail debridement Nail debridem ent performed extensively to reduce/remove overall nail length, girth, thickness, subungual debris, and necrotic tissue, by manual and electrical means through the use of a nail nipper and/or dremel, to more viable healthy nail plate or bed tissue 1-5. Silver nitrate used for any petechial bleeding as necessary. Patient chooses, no pharmaceutical tx (29458) Progress Notes * Steve HOLMAN:1950 (73 yo M)Acc No.[id number]:03/29/2024 Progress Note Patient:?Billy Holman Provider:?Eugenia Azar DPM :1950???Age:73 Y???Sex:Male Sammy e:03/29/2024 Address:[address] [facility] Pcp:Fredy Sales MD Subjective: * Chief Complaints: * ???Painful nail(s) aggrevate d by shoes causing difficulty standing/walkingSkin ProblemFoot pain * HPI: ???Painful Nails:?Pt States Last PCP Visit:?Date:?08/28/2023 ???Skin problems:?Nature:?scaling , redness.?Location:?B/L .?Course:?improved.?Treatments:?Medication (Ciclopirox Olamine 0.77 Cream).?Foot Pain:?Nature:?burning, radiating, shooting, tingling.?Location:?Forefoot , RIGHT.?Duration:?several months.?Onset:?unknown.?Course:?improved.?Aggravated:?any pressure.?Treatments:?rest/alter normal daily activity, massage innersoles.? * ROS:?General/Constitutional:?Nausea?denies.?Vomiting?denies.?Hunger Thirst?denies.?Loss appetite?denies.?Chills?denies.?Fatigue?denies.?Fever?denies.?Night Sweats?denies.?Unexplained weight loss?denies.?Unexplained weight gain?denies.?HEENTM:?Dentures?denies.?Dizziness?denies.?Glasses/contacts?admits, denies.?Retinopathy?denies.?Blurred/double vision?denies.?TMJ?denies.?Discharge/drainage?denies.?Implants?denies.?Sore throat?denies.?Dental implants?denies.?Hard of hearing ?admits, denies.?Difficulty chewing/swallowing/speaking?denies.?Nose bleeds?denies.?Sore mouth?denies.?Respiratory:?On Oxygen?denies.?Pneumonia/pleurisy?admits, denies.?Bronchitis?denies.?Emphysema?denies.?Coughing?denies.?Cough blood?denies.?Shortness of breath?denies.?Wheezing?denies.?Cardiovascular:?Pacemaker?denies.?MVP?denies.?WPW?denies.?CHF?denies.?Heart attack?denies.?Septal defect?denies.?Rapid beat?denies.?Chest pain ?denies.?Atrial Fib.?denies.?Murmur/Palpitations?denies.?Gastrointestinal:?Hemorrhoids?denies.?Stomach/Abdominal pain?denies.?Dark blood stool?denies.?Irritable bowel ?admits, denies.?Constipation?denies.?Diarrhea?admits, denies.?Hematology:?Swelling?denies.?Clots?denies.?Varicose Veins?denies.?Bruising?denies.?Bleeding problem?denies.?Genitourinary:?Blood urine?denies.?Frequent/Painfu/urination/bladder control?denies.?Kidney stones?denies.?Infection (UTI)?denies.?Nephropathy?denies.?sex trans dis (STD)?denies.?Prostate?denies.?Musculoskeletal:?Hammertoes?denies.?Bunions?denies.?Back Pain?denies.?Muscle Cramps/ Resting?denies.?Muscle cramps / walking?denies.?Generalized aches and pains?denies.?Weakness?denies.?Integ.:?Winkler?denies.?Scars?denies.?Corns/calluses?denies.?Ingrown nails?denies.?Painful nails?admits, denies.?Open Sores?denies.?Rashes?denies.?Neurologic:?Difficulty sleeping?denies.?Brain disorder?denies.?Numbness?admits.?Balance trouble?denies.?Confusion?denies.?Fainting/blackouts?denies.?Tingling?admits.?Tr emors?denies.? * Medical History:? * Surgical History:[facility] cancer 2010Gall bladder removal 1999 * Hospitalization/Major Diagno stic Procedure:?Denies Past Hospitalization * Family History:?Mother: dece ased.?Father: , diagnosed with Unspecified essential hypertension.?Siblings: diagnosed with Other malignant neoplasm of unspecified site.? * Social History:?Tobacco Use:?Tobacco Use/Smoking?Are you a:?nonsmoker ?Additional Findings: Tobacco Non-User?Current non-smoker ?Tobacco use other than smoking?Are you an other tobacco user??No ???Drugs/Alcohol:?Drugs?Have you used drugs other than those for medical reasons in the past 12 months??No ?Alcohol Screen?Did you have a drink containing alcohol in the past year??Yes ?How often did you have a drink containing alcohol in the past year??2 to 4 times a month (2 points) ?Points?2 ?Interpretation?Negative ???Miscellaneous:?Caffeine: yes, 2-3 cups per day. ?Children: yes. ?Exercise: yes, walking. ?Marital status: . ?Occupation: Retired. * Medications:?TakingVitamin D amLODIPine Besylate 5 MG Tablet 1 tablet Orally Once a dayAspir-81 Atenolol 50 MG Tablet 1 tablet Orally Once a dayCiclopirox Olamine 0.77 % Cream 1 application Externally Twice a dayMedication List reviewed and reconciled with the patientTaking Vitamin D Taking amLODIPine Besylate 5 MG Tablet 1 tablet Orally Once a dayTaking Aspir-81 Taking Atenolol 50 MG Tablet 1 tablet Orally Once a dayTaking Ciclopirox Olamine 0.77 % Cream 1 application Externally Twice a dayMedication List reviewed and reconciled with the patient * Allergies:?Sulfa Antibiotics : hivesyes[Allergies Verified] Objective: * Vitals:?Ht: 6ft, Wt:217, BMI :29.43, Shoe size: 11.5W, BP:140/78 mm Hg, Ht-cm: 182.88 cm, Wt-k.43 kg. * Examination: ???General Examination: ?GENERAL APPEARANCE:?Reveals a pleasant, alert, well-nourished, well- developed, well hydrated individual, who demonstrates proper attention to hygiene/body habitus, and is in no acute distress, Pt serves as own?historian for office visit today.?ORIENTED:?person, place, and time.?Neurological: ?SENSORY:?Neurological exam reveals intact sensorium, pain sensation normal, vibration sensation intact, pinprick sensation is normal in the lower extremities, Pt denies, anesthesia, burning, paresthesia, tingling, B/L.?DEEP TENDON REFLEXES:?Achilles, 2/4, B/L.?Vascular: ?DP PULSES(B):?3/4, B/L.?PT PULSES(B):?3/4, B/L.?CAPILLARY FILL TIME:?immediate, all digits, B/L.?TROPHIC CONDITION-TEXTURE/ELASTICITY/TURGOR/HAIR GROWTH(B):?normal, B/L.?TEMPERTURE GRADIENT(C):?warm to cool, proximal to distal, B/L.?PIGMENTATION:?normal, B/L.?EDEMA(C):?absent, B/L.?Dermatologic: ?SKIN FINDINGS:?Skin shows approximately _75__% LESS sign(s) of, erythema, scaling, in a moccasin fashion, no fissure(s) present, B/L.?Orthopedic: ?MUSCLE STRENGTH:?5/5 all groups in a symmetrical fashion , B/L.?Nails: ?NAILS are:?Elongated, overgrown, dystrophic, lytic, greater than 3mm thick, discolored and friable with crumbly malodorous subungual debris, with pain on palpation , 1-5 B/L.?Neuroma Pain: ?PALPATION:?Pain with direct palpation of the intermetatarsal space, Pain with lateral compression of metatarsals, positive Millie's click, 2nd interspace, 3rd interspace, RIGHT.? Assessment: * Assessment: 1.?Pain in right foot - M79. 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 Plan: * Treatment: * Procedures:?Debride Nail 6-10:?Nail debridement?Nail debridement performed extensively to reduce/remove overall nail length, girth, thickness, subungual debris, and necrotic tissue, by manual and electrical means through the use of a nail nipper and/or dremel, to more viable healthy nail plate or bed tissue 1-5. Silver nitrate used for any petechial bleeding as necessary. Patient chooses, no pharmaceutical tx (46674).? * Procedure Codes:?01794 DEBRI DE NAIL, 6 OR MORE, Modifiers: XS * Preventive Medicine:? ??Counseling:?Discussion:?-13: Office or other outpatient visit for the evaluation and management of an established patient, which required a medically appropriate history and/or examination and LOW level of DECISION MAKING for: 1 STABLE ACUTE UNCOMPLICATED PROBLEM, 2 OR MORE MINOR PROBLEMS, OR 1 STABLE CHRONIC PROBLEM, THAT POSE(S) A LOW RISK FOR MORBIDITY/MORTALITY. The visit on the day of the encounter encompassed interpreting the data and educating the patient as to the nature of their condition, treatment options available according to their individual PMH, meds, allergies, and overall health/living conditions, as well as any potential risks or complications that may occur from a failure to adhere to, and participate in, the recommended course of therapy. The discussion included a complete verbal, and/or written explanation of the examination results, any x-rays taken, the proposed diagnosis, and outline of the treatment plan. A schedule for future care needs was also explained. The patient verbalized an understanding of the instructions at this time and agreed to be an active participant in their treatment. If the patient should think of any questions or concerns after the visit, I have encouraged the patient to call the office.?F/U Fungal nails:?Reviewed with the patient the time needed before we start seeing results. Discussed the results that we hope to see and that cont to apply a topical medication to the nails may also help. We discussed the duration of time that the anti-fungal will work on the nails and time for nails to grow. We should wait 1 year before we decide if treatment has failed. Also discussed that treatment will help to prevent worsening of nail fungus or spreading to other nails.?Neuroma:?The patient was counseled on the diagnosis, possible etiologies (including foot structure/foot function/nonsupportive shoes/activity), treatment options, and importance for adherence to recommendations regarding the treatment for a Neuroma. The advantages and disadvantages of the treatment options including medications available, forefoot offloading padding, mechanically accomidative orthotics, supportive shoegear with adequate forefoot width, cortisone injection(s), experimental sclerosis therapy, and surgical treatment options including nerve release, nerve relocation, and complete nerve removal were discussed in detail with each procedures outcomes and possible sequlea (i.e.failure of procedure, stump neuroma formation, infection, chronic scarring, chronic pain). Patient questions re: the potential successes of conservative vs surgical treatment options were reviewed and their answers were understood. The patient verbally confirmed a full understanding of the above.?Tinea Pedis:?Given recent successful results to treatment, The patient is to cont the rx cream as directed.? * Follow Up:?3 Months * Images: * Sign off status: Completed true * Provider:?Eugenia Azar DPM Date:?06/2023 Generated for Charlee beltran/Kristine/Kareem on:?07/22/2024 12:57 PM EST History and Physical Notes * HPI (History of Present Illness) Category Sub-Category Detail Notes Category Not es Painful Nails Pt States Last PCP Visit: Date:: 08/28/2023 Skin problems Nature: scaling , redness Location: B/L Course: improved Treatments: Medication (Ciclopir ox Olamine 0.77 Cream) Foot Pain Nature: burning, radiating, shooting , tingling Location: Forefoot , RIGHT Duration: several months Onset: unknown Course: improved Aggravated: any pressure Treatments: rest/alter normal da kehinde activity, massage innersoles Examination Category Sub-Category Detail Notes Category Not es Neuroma Pain PALPATION: Pain with direct palpation of the intermetatarsal space, Pain with lateral compression of metatarsals, positive Millie's click, 2nd interspace, 3rd interspace, RIGHT Neurological SENSORY: Neurological exa m reveals intact sensorium, pain sensation normal, vibration sensation intact, pinprick sensation is normal in the lower extremities, Pt denies, anesthesia, burning, paresthesia, tingling, B/L DEEP TENDON REFLEXES: Achilles, 2/4, B/L Dermatologic SKIN FINDINGS: Skin shows appro ximately _75__% LESS sign(s) of, erythema, scaling, in a moccasin fashion, no fissure(s) present, B/L Orthopedic MUSCLE STRENGTH: 5/5 all groups in a symm etrical fashion , B/L General Examination GENERAL APPEARANCE: Reveals a pleasant, alert, well- nourished, well-developed, well hydrated individual, who demonstrates proper attention to hygiene/body habitus, and is in no acute distress, Pt serves as own historian for office visit today ORIENTED: person, place, and t alexsandra Vascular DP PULSES (B): 3/4, B/L PT PULSES (B): 3/4, B/L CAPILLARY FILL TIME: immediate, all digi ts, B/L TEMPERTURE GRADIENT (C): warm to cool, p roximal to distal, B/L TROPHIC CONDITION-TEXTURE/ELASTICITY/TURGOR/HAIR GROWTH (B): normal, B/L EDEMA (C): absent, B/L PIGMENTATION: normal, B/L Nails NAILS are: Elongated, overg rown, dystrophic, lytic, greater than 3mm thick, discolored and friable with crumbly malodorous subungual debris, with pain on palpation , 1-5 B/L
--- OUTSIDE RECORDS SUMMARY | 2024-07-22 12:57 | XMS_ITS | Patient Health Record ---
Author Organization [facility] [place] Address [address] [place] [address] Care Team Providers Care Psychologist Educational Name Role Phone Henrry HUNTER, Fredy Primary Care Provider UnavailEugenia Florez Unavailable [phone] Allergies Allergen (clinical drug ingredient) Drug/Non Drug Allergy documented on EMR Reaction Allergy Type Onset Date Status Substance with sulfonamide structure and antibacterial mechanism of action (substance) Sulfa Antibiotics hives Drug Allergy Active Reason For Referral No Information Medications Medication SIG (Take, Route, Frequency, Duration) Notes Start Date End Date Status Aspir-81 Active Atenolol 50 MG 1 tablet Orally Once a day Active amLODIPine Besylate 5 MG 1 tablet Orally Once a day Active Ciclopirox Olamine 0.77 % 1 application Externally Twice a day for 30 days Not-Taki ng Vitamin D Active Social History Tobacco Use: Social History [...] Are you an other tobacco user? No Problems Problem Type SNOMED Code ICD Code Onset Dates Problem Status W/U Status Risk Notes Problem Brown's neuroma of right foot ([id number] 108) 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 Vital Signs Blood pressure diastolic 70 mm Hg 07/05/2024 Height 6ft in 07/05/2024 Blood pressure systolic 132 mm Hg 07/05/2024 Weight 218 lbs 07/05/2024 BMI 29.56 kg/m2 07/05/2024 Encounters Encounter Location Date Provider Diagnosis [address] [address] 01/05/2024 Eugenia Perica Pain in right foot M79.671 ; 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 ; Tinea unguium B35.1 ; Pain in right toe(s) M79.674 ; Pain in left toe(s) M79.675 and Tinea pedis of both feet B35.[address] [address] 03/29/2024 Eugenia Perica Pain in right foot M79.671 ; 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 ; Tinea unguium B35.1 ; Pain in right toe(s) M79.674 ; Pain in left toe(s) M79.675 and Tinea pedis of both feet B35.[address] [address] 07/05/2024 Eugenia Perica 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 ; Tinea pedis of both feet B35.3 ; Pain in right foot M79.671 ; Tinea unguium B35.1 ; Pain in right toe(s) M79.674 and Pain in left toe(s) M79.[address] [address] 01/05/2024 Eugenia Perica Assessments Encounter Date Diagnosis (ICD Code) Assessment Notes Treatment Notes Treatment Clinical Notes Section Notes 01/05/2024 Pain in right foot (ICD-10 - M79.671) 01/05/2024 Brown's neuroma of right foot (ICD-10 - G57.61) 03/29/2024 Pain in right foot (ICD-10 - M79.671) 07/05/2024 Brown's neuroma of right foot (ICD-10 - G57.61) 07/05/2024 Tinea pedis of both feet (ICD-10 - B35.3) 07/05/2024 Pain in right foot (ICD-10 - M79.671) 03/29/2024 Brown's neuroma of right foot (ICD-10 - G57.61) 01/05/2024 Tinea unguium (ICD-10 - B35.1) 03/29/2024 Tinea unguium (ICD-10 - B35.1) 01/05/2024 Pain in right toe(s) (ICD-10 - M79.674) 03/29/2024 Pain in right toe(s) (ICD-10 - M79.674) 07/05/2024 Tinea unguium (ICD-10 - B35.1) 07/05/2024 Pain in right toe(s) (ICD-10 - M79.674) 03/29/2024 Pain in left toe(s) (ICD-10 - M79.675) 01/05/2024 Pain in left toe(s) (ICD-10 - M79.675) 01/05/2024 Tinea pedis of both feet (ICD-10 - B35.3) 07/05/2024 Pain in left toe(s) (ICD-10 - M79.675) 03/29/2024 Tinea pedis of both feet (ICD-10 - B35.3) Plan Of Treatment Next Appt Details Provider Name:Eugenia sarmiento, 10/07/2024 11:00:00 AM, [address] [place] [address], [phone], Insurance Providers Payer Name Payer Address Payer Phone Subscriber Number Group Number Insured Name Patient Relationship to Insured Coverage Start Date Coverage End Date Medicare National [facility] [address] [facility] [place] [address] [id number] Billy Holman Self - patient is the insured [employer] [address] [place] [address] [id number] Billy Holman Self - patient is the insured Medical (General) History Medical History History ICD Code Cancer Crohns disease Gall bladder removed High blood pressure Measles Mumps Chicken pox Surgical History Surgery Date(Month/Year) small bowel resection 1993 kidney surgery, cancer 2010 Gall bladder removal 1999 colonoscopy 05/2024 endoscopy 05/2024
--- OUTSIDE RECORDS SUMMARY | 2024-07-22 12:58 | XMS_ITS ---
Author Organization [facility] Address [address] [place] [address] Care Team Providers Care Station Attendant Name Role Phone Fredy Sales MD Primary Care Provider Unavailab Eugenia Cassidy Unavailable [phone] REASON FOR VISIT BUY Comfort Plus w/Met Pads F/ M11-13 Encounters Encounter Location Date Provider Diagnosis [facility] [address] [place] [address] 01/05/2024 Eugenia Azar Plan Of Treatment Next Appt Details Provider Name:Eugenia sarmiento, 10/07/2024 11:00:00 AM, [address] [place], [address], Progress Notes * RIVER BillyDOB:1950 (73 yo M)Acc No.[id number]:01/05/2024 Patient:?Billy Holman :1950???Age:73 Y???Sex:Male Address:[address] [place], [address] * true * Date:? Generated for Charlee beltran/Kristine/eTransmitting on:?07/22/2024 12:57 PM EST
--- OUTSIDE RECORDS SUMMARY | 2024-07-22 12:58 | XMS_ITS ---
Author Organization [facility] Address [address] [facility] [place] [address] Care Team Providers Care Optometrist Assistant Name Role Phone Fredy Sales MD Primary Care Provider UnavailEugenia Florez Unavailable [phone] Allergies Allergen (clinical drug ingredient) Drug/Non Drug [...] Additional Findings: Tobacco Non-User Current no n-smoker Tobacco use other than smoking: Question Answer Notes Are you an other tobacco user? 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 ; Tinea pedis of both feet B35.3 ; Pain in right foot M79.671 ; Tinea unguium B35.1 ; Pain in right toe(s) M79.674 and Pain in left toe(s) M79.675 Assessments Encounter Date Diagnosis (ICD Code) Assessment Notes Treatment Notes Treatment Clinical Notes Section Notes 07/05/2024 Brown's neuroma of right foot (ICD-10 - G57.61) 07/05/2024 Tinea pedis of both feet (ICD-10 - B35.3) 07/05/2024 Pain in right foot (ICD-10 - M79.671) 07/05/2024 Tinea unguium (ICD-10 - B35.1) 07/05/2024 Pain in right toe(s) (ICD-10 - M79.674) 07/05/2024 Pain in left toe(s) (ICD-10 - M79.675) Plan Of Treatment Next Appt Details Follow Up: 3 Months, Reason: Provider Name:Eugenia sarmiento, 10/07/2024 11:00:00 AM, [address] [place] [address], [place], [address], Procedure Notes * Category Sub-Category Detail Notes Debride Nail 6-10 Nail debridement Due to the cl inical pathology outlined in the exam findings, performance of this nail treatment is medically necessary as its management by an unskilled/untrained nonprofessional would put this patients foot and overall health at risk. Therefore, debridement to affected nail(s), as described in exam ( TA, T1, T2, T3, T4, T5, T6, T7, T8, T9, ), was performed exclusively by the physician of record to reduce/remove overall nail length, girth, thickness, subungual debris, and necrotic tissue, by manual and/or electrical means through the use of a nail nipper and/or dremel-type grinder set up operator gear tool, to a more viable healthy nail plate or bed tissue 6-10 nails in total. Silver nitrate was used for any petechial bleeding as necessary. Definitive antifungal treatment options, both pharmaceutical and surgical, have been reviewed and discussed with the patient. The patient solely prefers the use of intermittent/as needed professional debridement services for their nail condition and understands the need for additional periodic treatments to maintain effectiveness in symptomatic relief - 62907 Progress Notes * Billy HOLMANDOB:1950 (73 yo M)Acc No.[id number]:07/05/2024 Progress Note Patient:?Billy HOLMAN Provider:?Eugenia Azar DPM :1950???Age:73 Y???Sex:Male Sammy e:07/05/2024 Address: [address] [facility] [place] Pcp:Fredy Sales MD Subjective: * Chief Complaints: * ???Painful nail(s) aggrevate d by shoes causing difficulty standing/walkingSkin ProblemFoot pain * HPI: ???Painful Nails:?Pt States Last PCP Visit:?Date:?08/28/2023 ???Skin problems:?Nature:?scaling , redness.?Location:?B/L .?Course:?recurrent.?Treatments:?Medication (Ciclopirox Olamine 0.77 Cream), admits intermittent adherence to recommended application.?Foot Pain:?Nature:?burning, radiating, shooting, tingling.?Location:?Forefoot , RIGHT.?Duration:?several months.?Course:?improved.?Treatments:?rest/alter normal daily activity, massage innersoles.? * ROS:?General/Constitutional:?Nausea?denies.?Vomiting?denies.?Hunger [...] History:? * Surgical History:?small ping l resection [address] [place] [address] surgery, cancer 2010Gall bladder removal 2000colonoscopy 05/2024endoscopy 05/2024 * Hospitalization/Major Diagno stic Procedure:?Denies Past Hospitalization * Family History:?Mother: dece ased.?Father: , diagnosed with Unspecified essential hypertension.?Siblings: diagnosed with Other malignant neoplasm of unspecified site.? * Social History:?Tobacco Use:?Tobacco Use/Smoking?Are you a:?nonsmoker ?Additional Findings: Tobacco Non-User?Current non-smoker ?Tobacco use other than smoking?Are you an other tobacco user??No * Medications:?TakingVitamin D amLODIPine Besylate 5 MG Tablet 1 tablet Orally Once a day Aspir-81 Atenolol 50 MG Tablet 1 tablet Orally Once a day Taking Vitamin D Taking amLODIPine Besylate 5 MG Tablet 1 tablet Orally Once a day Taking Aspir- 81 Taking Atenolol 50 MG Tablet 1 tablet Orally Once a day Not-Taking/PRNCiclopirox Olamine 0.77 % Cream 1 application Externally Twice a day Medication List reviewed and reconciled with the patientNot-Taking/PRN Ciclopirox Olamine 0.77 % Cream 1 application Externally Twice a day Medication List reviewed and reconciled with the patient * Allergies:?Sulfa Antibiotics : hivesyes[Allergies Verified] Objective: * Vitals:?Ht: 6ft, Wt:218, BMI :29.56, Shoe size: 11.5W, BP:132/70mm Hg, Ht-cm: 182.88 cm, Wt-k.88 kg. * Examination: ???General Examination: ?GENERAL APPEARANCE:?Reveals a pleasant, alert, well-nourished, well- developed, well hydrated individual, who demonstrates proper attention to hygiene/body habitus, and is in no acute distress, Pt serves as own?historian for office visit today.?ORIENTED:?person, place, and time.?FOOT EXAM:?Footwear Evaluation?Neurological: ?SENSORY:?Neurological exam reveals intact sensorium, pain sensation normal, vibration sensation intact, pinprick sensation is normal in the lower extremities, Pt denies, anesthesia, burning, paresthesia, tingling, B/L.?Vascular: ?DP PULSES (B):?3/4, B/L.?PT PULSES (B):?3/4, B/L.?CAPILLARY FILL TIME:?immediate, all digits, B/L.?TROPHIC CONDITION-TEXTURE/ELASTICITY/TURGOR/HAIR GROWTH (B):?normal, B/L.?TEMPERTURE GRADIENT (C):?warm to cool, proximal to distal, B/L.?PIGMENTATION:?normal, B/L.?EDEMA (C):?absent, B/L.?Dermatologic: ?SKIN FINDINGS:?Skin shows recurrent sign(s) of, erythema, scaling, in a moccasin fashion, no fissure(s) present, B/L.?Orthopedic: ?MUSCLE STRENGTH:?5/5 all groups in a symmetrical fashion , B/L.?Nails: ?NAILS are:?Elongated, overgrown, dystrophic, lytic, greater than 3mm thick, discolored and friable with crumbly malodorous subungual debris, with pain on palpation, TA, T1, T2, T3, T4, T5, T6, T7, T8, T9.?Neuroma Pain: ?PALPATION:?Pain with direct palpation of the intermetatarsal space, Pain with lateral compression of metatarsals, positive Millie's click, 2nd interspace, 3rd interspace, RIGHT.? Assessment: * Assessment: 1.?Brown's neuroma of right foot - G57.61???Specify :Acute problem, Complicated w/ Multiple Tx Options(4),Dx New problem, Prognosis Uncertain (4)???2.?Tinea pedis of both feet - B35.3 (Primary)???Specify :Acute problem, Uncomplicated (3),Rx drug management (4)???3.?Pain in right foot - M79.671???4.?Tinea unguium - B35.1???5.?Pain in right toe(s) - M79.674???6.?Pain in left toe(s) - M79.675??? Plan: * Treatment: * Procedures:?Debride Nail 6-10:?Nail debridement?Due to the clinical pathology outlined in the exam findings, performance of this nail treatment is medically necessary as its management by an unskilled/untrained nonprofessional would put this patients foot and overall health at risk. Therefore, debridement to affected nail(s), as described in exam ( TA, T1, T2, T3, T4, T5, T6, T7, T8, T9, ), was performed exclusively by the physician of record to reduce/remove overall nail length, girth, thickness, subungual debris, and necrotic tissue, by manual and/or electrical means through the use of a nail nipper and/or dremel-type grinder set up operator gear tool, to a more viable healthy nail plate or bed tissue 6- 10 nails in total. Silver nitrate was used for any petechial bleeding as necessary. Definitive antifungal treatment options, both pharmaceutical and surgical, have been reviewed and discussed with the patient. The patient solely prefers the use of intermittent/as needed professional debridement services for their nail condition and understands the need for additional periodic treatments to maintain effectiveness in symptomatic relief - 55394.? * Procedure Codes:?04263 DEBRI DE NAIL, 6 OR MORE, Modifiers: [...] have encouraged the patient to call the office.?Neuroma:?Discussed other tx options for the patients condition, given recent successful results to treatment, the patient wishes to continue with the present plan for their condition.?Tinea Pedis:?PREVENTIVE STRATEGIES were reviewed with the patient to avoid recurrent issues ., The patient was counseled on the diagnosis, potential etiologies, and treatment options for their skin condition. We discussed the risks and benefits of each option from performing no treatment, to utilizing OTC topical skin creams, prescription topical creams, customized compounded topical medications, and, if necessary, to utilize oral antifungal therapy. We discussed the advantages and disadvantages of each possible treatment and importance for adherence to all the recommended therapies for optimum success and avoid potential complications such as open sore/infection/possible hospitalization. We discussed the potential effectiveness of each topical preparation as well as each ones possible side effects and/or patient medication interactions if oral therapy is selected. Patient questions re: the advantages and disadvantages of each treatment choice, medication use/dosage, successful outcomes, and application consistency were reviewed and the patient verbalized that all answers were clearly understood. The patient was told they can help alleviate symptoms by utilizing moisture absorbant innersoles with activated charcoal and baking soda, applying antifungal sprays daily, aerating toe web spaces at night by putting cotton or lambs wool between the toes, alternating shoe gear daily if possible so they can dry out, changing socks at least once during the day, wearing well-ventilated shoes or sandals. The patient has decided to apply antifungal skin creams to their feet as directed.? ??Screening/Special Tests:?Fall Risk?Assessment:?Performed ?Screening:?No falls in the past year ?FALLS: Screening for Future Fall Risk?Have you had two or more falls in the past year??No ?Have you had any falls with injury in the past year??No * Follow Up:?3 Months * Images: * Sign off status: Completed true * Provider:?Eugenia Azar DPM Date:?12/2024 Generated for Charlee beltran/Kristine/Kareem on:?07/22/2024 12:58 PM EST History and Physical Notes * HPI (History of Present Illness) Category Sub-Category Detail Notes Category Not es Painful Nails Pt States Last PCP Visit: Date:: 08/28/2023 Skin problems Nature: scaling , redness Location: B/L Course: recurrent Treatments: Medication (Ciclopir ox Olamine 0.77 Cream), admits intermittent adherence to recommended application Foot Pain Nature: burning, radiating, shooting , tingling Location: Forefoot , RIGHT Duration: several months Course: improved Treatments: rest/alter normal da kehinde activity, massage [...] Pt denies, anesthesia, burning, paresthesia, tingling, B/L Dermatologic SKIN FINDINGS: Skin shows recur rent sign(s) of, erythema, scaling, in a moccasin fashion, no fissure(s) present, B/L Orthopedic MUSCLE STRENGTH: 5/5 all groups in a symmetrical fashion , B/L General Examination GENERAL APPEARANCE: Reveals a pleasant, alert, well-nourished, well-developed, well hydrated individual, who demonstrates proper attention to hygiene/body habitus, and is in no acute distress, Pt serves as own historian for office visit today FOOT EXAM: Lower Extremity Neurological Exa m performed:: Yes Visual exam of foot performed:: Yes Date: 07/05/2024 ORIENTED: person, place, and t alexsandra Footwear Evaluation Footwear Evaluation performe d:: Yes Vascular DP PULSES (B): 3/4, B/L PT [...] crumbly malodorous subungual debris, with pain on palpation, TA, T1, T2, T3, T4, T5, T6, T7, T8, T9
[2024-07-22 14:16] LABS: Anion Gap 9 (12-20); Blood Urea Nitrogen 17 mg/dL (9-16); Calcium 8.8 mg/dL (8.4-10.2); Carbon Dioxide 29 mmol/L (22-29); Chloride 106 mmol/L (96-108); Estimated Glomerular Filt Rate > 60; Glucose Random 113 mg/dL (60-115); Potassium 3.8 mmol/L (3.3-5.1); Sodium 140 mmol/L (135-145)
== END 2024-07-22 10:56 | disposition home or self-care (01) ==
LOC: HO.HMGCLDS 10:55
PROVIDERS: PCP Family Medicine; Visit Provider Nurse Practitioner Family
DX: I71.20 Thoracic aortic aneurysm, without rupture, unspecified (principal)
CPT/HCPCS: 36415; 80048

== ENCOUNTER 2024-08-08 09:16 | Outpatient (REF) | payer MEDICARE, SELFPAY ==
[2024-08-08] MEDS: iohexoL 350 MG/ML 75 ML INFUS..BTL 70 ML IV (11:07)
== END 2024-08-08 09:17 | disposition home or self-care (01) ==
LOC: HO.CT 09:16
PROVIDERS: PCP Family Medicine; Visit Provider Nurse Practitioner Family
DX: I71.20 Thoracic aortic aneurysm, without rupture, unspecified (principal)
CPT/HCPCS: 71275; Q9967

== ENCOUNTER → 2024-08-08 09:17 | Outpatient (BNV) | payer MEDICARE, SELFPAY | PROVIDERS: PCP Family Medicine; Visit Provider Radiology Vascular & Interventional Radiology | DX: I71.20 Thoracic aortic aneurysm, without rupture, unspecified (principal); E04.2 Nontoxic multinodular goiter | CPT/HCPCS: 71275 ==

== ENCOUNTER 2024-08-11 12:59 | Outpatient (AMB) | payer MEDICARE, SELFPAY ==
--- OUTSIDE RECORDS SUMMARY | 2024-08-11 13:08 | XMS_ITS ---
Author Organization [facility] Address [address] [place] [address] Care Team Providers Care Auto Clocks Repairer Name Role Phone Freyd Sales MD Primary Care Provider UnavailEugenia Florez Unavailable [phone] Allergies Allergen (clinical drug ingredient) Drug/Non Drug [...] 025 Encounters Encounter Location Date Provider Diagnosis [facility] [address] [facility] [place] [address] 07/05/2024 Eugenia Azar Brown's neuroma of right [...] Reason: Provider Name:Eugenia sarmiento, 10/07/2024 11:00:00 AM, [address] [place] [address], [place], [address], Procedure Notes * Category Sub-Category Detail Notes [...] use of a nail nipper and/or dremel-type notch grinder, to a more viable healthy nail plate [...] to maintain effectiveness in symptomatic relief - 98487 Progress Notes * Billy HOLMANDOB:1950 (73 yo M)Acc No.[id number]:07/05/2024 Progress Note Patient:?Billy HOLMAN Provider:?Eugenia Azar DPM :1950???Age:73 Y???Sex:Male Sammy e:07/05/2024 Address: [address] [facility] [place] Pcp:Fredy Sales MD Subjective: * Chief Complaints: [...] History:? * Surgical History:?small ping l resection [address] [place] [address] surgery, cancer 2010Gall bladder removal 2000colonoscopy 05/2024endoscopy [...] 1 tablet Orally Once a day Taking Aspir-81 Taking Atenolol 50 MG Tablet 1 [...] use of a nail nipper and/or dremel-type notch grinder, to a more viable healthy nail plate [...] to maintain effectiveness in symptomatic relief - 52462.? * Procedure Codes:?62571 DEBRI DE NAIL, 6 OR MORE, Modifiers: [...] Azar DPM Date:?12/2024 Generated for Charlee beltran/Kristine/Kareem on:?08/11/2024 01:08 PM EST History and Physical Notes * [...]
--- OUTSIDE RECORDS SUMMARY | 2024-08-11 13:08 | XMS_ITS ---
Author Organization [facility] Address [address] [place] [address] Care Team Providers Care Seasonal Customer Service Associate Name Role Phone Fredy Sales MD Primary Care Provider Unavailab Eugenia Cassidy Unavailable [phone] REASON FOR VISIT BUY Comfort Plus w/Met Pads F/ M11-13 Encounters Encounter Location Date Provider Diagnosis [facility] [address] [place] [address] 01/05/2024 Eugenia Azar Plan Of Treatment Next Appt Details Provider Name:Eugenia sarmiento, 10/07/2024 11:00:00 AM, [address] [place], [address], Progress Notes * Billy HOLMANDOB:1950 (73 yo M)Acc No.[id number]:01/05/2024 Patient:?Billy Holman :1950???Age:73 Y???Sex:Male Address:[address] [place], [address] * true * Date:? Generated for Charlee beltran/Kristine/eTransmitting on:?08/11/2024 01:07 PM EST
--- OUTSIDE RECORDS SUMMARY | 2024-08-11 13:08 | XMS_ITS ---
Author Organization [facility] [place] Address [address] [place] [address] Care Team Providers Care Plug Shaper Hand Name Role Phone Fredy Sales MD Primary Care Provider UnavailEugenia Florez Unavailable [phone] Allergies Allergen (clinical drug ingredient) Drug/Non Drug [...] 024 Encounters Encounter Location Date Provider Diagnosis [facility] [address] [place] [address] 03/29/2024 Eugenia Azar Pain in right foot [...] Reason: Provider Name:Eugenia sarmiento, 10/07/2024 11:00:00 AM, [address] [place] [address], [address], Procedure Notes * Category Sub-Category Detail Notes [...] as necessary. Patient chooses, no pharmaceutical tx (60129) Progress Notes * Steve HOLMAN:1950 (73 yo M)Acc No.[id number]:03/29/2024 Progress Note Patient:?Billy Holman Provider:?Eugenia Azar DPM :1950???Age:73 Y???Sex:Male Sammy e:03/29/2024 Address:[address] [facility] Pcp:Fredy Sales MD Subjective: * Chief Complaints: [...] History:? * [facility] 1999 * [...] as necessary. Patient chooses, no pharmaceutical tx (37744).? * Procedure Codes:?73710 DEBRI DE NAIL, 6 OR MORE, Modifiers: [...] Azar DPM Date:?06/2023 Generated for Charlee beltran/Kristine/Kareem on:?08/11/2024 01:07 PM EST History and Physical Notes * [...]
--- OUTSIDE RECORDS SUMMARY | 2024-08-11 13:08 | XMS_ITS | Patient Health Record ---
Author Organization [facility] [place] Address [address] [place] [address] Care Team Providers Care Baker Biscuit Name Role Phone Henrry HUNTER, Fredy Primary Care Provider UnavailEugenia Florez Unavailable [phone] Allergies Allergen (clinical drug ingredient) Drug/Non Drug [...] Notes Problem Brown's neuroma of right foot ([id number]) 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 Vital Signs Blood pressure diastolic 70 mm Hg 07/05/2024 Height 6ft in 07/05/2024 Blood pressure systolic 132 mm Hg 07/05/2024 Weight 218 lbs 07/05/2024 BMI 29.56 kg/m2 07/05/2024 Encounters Encounter Location Date Provider Diagnosis [address] [address] 01/05/2024 Eugenia Perica Pain in right foot M79.671 ; 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 ; Tinea unguium B35.1 ; Pain in right toe(s) M79.674 ; Pain in left toe(s) M79.675 and Tinea pedis of both feet B35.[address] [address] 03/29/2024 Eugenia Perica Pain in right foot M79.671 ; 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 ; Tinea unguium B35.1 ; Pain in right toe(s) M79.674 ; Pain in left toe(s) M79.675 and Tinea pedis of both feet B35.[address] [address] 07/05/2024 Eugenia Perica 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 ; Tinea pedis of both feet B35.3 ; Pain in right foot M79.671 ; Tinea unguium B35.1 ; Pain in right toe(s) M79.674 and Pain in left toe(s) M79.[address] [address] 01/05/2024 Eugenia Perica Assessments Encounter Date Diagnosis [...] Details Provider Name:Eugenia sarmiento, 10/07/2024 11:00:00 AM, [address] [place] [address], [phone], Insurance Providers Payer Name Payer Address Payer Phone Subscriber Number Group Number Insured Name Patient Relationship to Insured Coverage Start Date Coverage End Date Medicare National [facility] [address] [facility] [place] [address] [id number] Billy Holman Self - patient is the insured [employer] [address] [place] [address] [id number] Billy Holman Self - patient is the insured Medical (General) History Medical History History ICD Code Cancer Crohns disease Gall bladder removed High blood pressure Measles Mumps Chicken pox Surgical History Surgery Date(Month/Year) small bowel resection 1993 kidney surgery, cancer 2010 Gall bladder removal 1999 colonoscopy 05/2024 endoscopy 05/2024
--- NOTE | 2024-08-11 13:10 | A.OFFVIS_ITS ---
Intake Visit Reasons: Left knee pain Intake Note: Billy is a 74 year old male who presents with complaints of left knee pain. The patient has had viscosupplementation injections which gave him very good relief. He has done physical therapy exercises which aggravated his pain. He has also tried Tylenol which gives him only mild relief. He is not able to take anti- inflammatory medicines at this point because of gastrointestinal ulcers. He would like to hold off on surgery for as long as possible. Allergies Sulfa (Sulfonamide Antibiotics) [SULFA (SULFONAMIDE ANTIBIOTICS)] Allergy (Unknown, Verified 08/11/24 13:14) HIVES Medication List - Last Reconciled 08/11/24 by Raymond Owens MD amlodipine 5 mg PO DAILY 90 days aspirin 81 mg PO DAILY atenolol 50 mg PO DAILY 90 days cholecalciferol (vitamin D3) 25 mcg PO DAILY omeprazole 20 mg PO DAILY 30 days ondansetron HCl 4 mg PO BID PRN 60 days [facility] Medical History HTN (hypertension) Thoracic aortic aneurysm Surgical History (Updated 07/14/24 @ 11:35 by DARIO Gilliland) History of esophagogastroduodenoscopy (EGD) H/O colonoscopy Hx of cholecystectomy Family History Father No problems noted. Mother Lung cancer Brother Pancreatic cancer Social History Are you a primary child care provider to a significant other at home: No Do you presently have visiting nurse or other home services: No Alcohol intake: current Alcohol intake frequency: holidays/special occasions only Patient Tobacco Use Status: Never used Tobacco Physical Exam Const Other: Well-nourished well-developed very friendly male awake alert and oriented x3 in no acute distress Extrem Other: Bilateral lower extremity examination shows good capillary refill, no skin lesions noted, normal sensation light touch Left knee examination shows a minimal effusion, palpable crepitus with range of motion, pain with range of motion, no instability Results Reviewed Results Reviewed: X-rays of the patient's left knee taken previously show joint space narrowing, subchondral sclerosis, no acute bony abnormalities Assessment & Plan Assessment & Plan (1) Left knee pain: Code(s): M25.562 - Pain in left knee Category: Medical (2) Osteoarthritis of left knee: Code(s): M17.12 - Unilateral primary osteoarthritis, left knee Category: Medical Plan Mr. Holman presents with left knee pain due to osteoarthritis. I had a lengthy discussion with the patient regarding the treatment options. He wishes to hold off on surgery for as long as possible. I agree with this plan. Will see whether or not the patient's insurance company will cover a another viscosupplementation injection, such as Durolane. I will see him back once the injection is available. Feel free to call me at any time should questions regarding his orthopedic management arise. I spent 22 minutes in reviewing the patient's records and imaging studies, seeing the patient and documenting in the medical record. Coding Level of Care Code Est Pt Level 3 (75239) Complex EM visit Add On G2211 Diagnoses Left knee pain M25.562 Osteoarthritis of left knee M17.12
== END 2024-08-11 13:31 | disposition home or self-care (01) ==
PROVIDERS: PCP Family Medicine; Visit Provider Orthopaedic Surgery
DX: M17.12 Unilateral primary osteoarthritis, left knee (principal)
CPT/HCPCS: 99213; G2211

== ENCOUNTER → 2024-08-11 12:59 | Outpatient (BNVA) | payer MEDICARE, SELFPAY | PROVIDERS: PCP Family Medicine; Visit Provider Orthopaedic Surgery | DX: M25.562 Pain in left knee (principal); M17.12 Unilateral primary osteoarthritis, left knee | CPT/HCPCS: 99212 ==

== ENCOUNTER 2024-11-15 14:39 | Outpatient (AMB) | payer MEDICARE, SELFPAY ==
[2024-11-15 14:46] VITALS: BMI 29.6
--- NOTE | 2024-11-15 14:46 | MHC.OFFVIS ---
Vital Signs 11/15/24 14:46 Height 6 ft Weight 218 lb BMI 29.6 Intake Visit Reasons: Inj- Left knee Durolane inj Intake Note: Billy is a 74 year old male who presents with complaints of progressively worsening left knee pain. He describes his pain as sharp in nature. His pain has gotten worse over the last few months in spite of continued non operative treatments. He has tried physical therapy exercises which aggravated his pain. He has also tried Tylenol which gives him only mild relief. Wishes to hold off on surgery for as long as possible. Allergies Sulfa (Sulfonamide Antibiotics) [SULFA (SULFONAMIDE ANTIBIOTICS)] Allergy (Unknown, Verified 11/15/24 14:47) HIVES Medication List - Last Reconciled 11/16/24 by Raymond Owens MD amlodipine 5 mg PO DAILY 90 days aspirin 81 mg PO DAILY atenolol 50 mg PO DAILY 90 days cholecalciferol (vitamin D3) 25 mcg PO DAILY omeprazole 20 mg PO DAILY 30 days ondansetron HCl 4 mg PO BID PRN 60 days [facility] Medical History HTN (hypertension) Thoracic aortic aneurysm Surgical History (Updated 07/14/24 @ 11:35 by DARIO Gilliland) History of esophagogastroduodenoscopy (EGD) H/O colonoscopy Hx of cholecystectomy Family History Father No problems noted. Mother Lung cancer Brother Pancreatic cancer Social History Are you a primary vp care management to a significant other at home: No Do you presently have visiting nurse or other home services: No Alcohol intake: current Alcohol intake frequency: holidays/special occasions only Patient Tobacco Use Status: Never used Tobacco Physical Exam Vital Signs: BMI result Body Mass Index 29.6 Const Other: Well-nourished well-developed very friendly male awake alert and oriented x3 in no acute distress Extrem Other: Bilateral lower extremity examination shows good capillary refill, no skin lesions noted, normal sensation light touch Left knee examination shows a minimal effusion, palpable crepitus with range of motion, pain with range of motion, no instability Office Procedures AMB Joint Injection/Aspiration Joint Injection/Aspiration Primary Site: left knee Prep: site was prepped using aseptic technique Injected: 60 mg of (Durolane viscosupplementation) and 1% plain lidocaine Procedure: The patient tolerated the procedure well Coding 55711 - Large joint Procedure code (CPT) selection complete Results Reviewed Results Reviewed: X-rays of the patient's left knee show joint space narrowing, subchondral sclerosis, no acute bony abnormalities Assessment & Plan Assessment & Plan (1) Osteoarthritis of left knee: Code(s): M17.12 - Unilateral primary osteoarthritis, left knee Category: Medical Plan Mr. Holman presents with left knee pain due to osteoarthritis. The risks and benefits of a Durolane viscosupplementation injection were discussed at length with the patient. The patient wished to proceed. He tolerated the injection well. He will continue with his activity modifications. Will contact me prior to his follow-up appointment in 3 months should any questions or concerns arise. Feel free to call me at any time should questions regarding his orthopedic management arise. I spent 20 minutes in reviewing the patient's records and imaging studies, seeing the patient and documenting in the medical record. Orders: Orders AMB Joint Injection/Aspiration 11/15/24 M17.12 - Unilateral primary osteoarthritis, left knee Coding Level of Care Code Est Pt Level 3 (06841) Complex EM visit Add On G2211 Diagnoses Osteoarthritis of left knee M17.12 CPT Codes Coding - 57233 Large joint: 37861 - Large joint ([id number])
--- OUTSIDE RECORDS SUMMARY | 2024-11-15 15:59 | XMS_ITS ---
[facility] [place] Address [address] [place] [address] Care Team Providers Care Food Mobile Driver Name Role Phone Fredy Sales MD Primary Care Provider Unavailab Eugenia Cassidy Unavailable [phone] Yanes Encounters Encounter Location Date Provider Diagnosis [address] [address] 11/08/2024 Eugenia Azar Plan Of Treatment Next Appt Details Provider Name:Eugenia sarmiento, 01/17/2025 02:00:00 PM, [address] [place], [address], Progress Notes * Billy HOLMANDOB:1950 (74 yo M)Acc No.[id number]:11/08/2024 Progress Note Patient:?Billy HOLMAN Provider:?Eugenia Azar DPM :1950???Age:74 Y???Sex:Male Sammy e:11/08/2024 Address:[address] [place] Pcp:Fredy Sales MD Subjective: * Chief Complaints: * ???1. Dr Yanes. * Medical History:? Objective: * Vitals:? Assessment: Plan: * Treatment: * Images: * The named appointment provid er may or may not be the originator of this progress note, and it is not deemed complete until electronically signed by the appointment provider. Sign off status: Pending * Provider:Mat Azar DPM Date:? Generated for Charlee beltran/Kristine/Kareem on:?11/15/2024 03:59 PM EDT
--- OUTSIDE RECORDS SUMMARY | 2024-11-15 16:00 | XMS_ITS | Patient Health Record ---
Author Organization [facility] Jenna jennings [place] Address [address] [place] [address] Care Team Providers Care Outboard Motorboat Operator Name Role Phone Henrry HUNTER, Fredy Primary Care Provider Unavailab Eugenia Cassidy Unavailable [phone] Willow Smiley Unavailable [phone] Allergies Allergen (clinical drug ingredient) Drug/Non Drug Allergy documented on EMR Reaction Allergy Type Onset Date Status Substance with sulfonamide structure and antibacterial mechanism of action (substance) Sulfa Antibiotics hives Drug Allergy Active Reason For Referral No Information Medications Medication SIG (Take, Route, Frequency, Duration) Notes Start Date End Date Status amLODIPine Besylate 10 MG 1 tablet Orally Once a day Active Aspir-81 Active Vitamin D Active Atenolol 50 MG 1 tablet Orally Once a day Active Ciclopirox Olamine 0.77 % 1 application Externally Twice a day for 30 days Not-Taki ng Social History Tobacco Use: Social History Observation [...] Notes Problem Brown's neuroma of right foot ([id number] 108) 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 ; Tinea unguium B35.1 ; Pain in right toe(s) M79.674 ; Pain in left toe(s) M79.675 and Tinea pedis of both feet B35.[address] [address] 07/05/2024 Eugenia Azar 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 ; Tinea pedis of both feet B35.3 ; Pain in right foot M79.671 ; Tinea unguium B35.1 ; Pain in right toe(s) M79.674 and Pain in left toe(s) M79.[address] [address] 11/09/2024 Willow Smiley Tinea unguium B35.1 ; Pain in right toe(s) M79.674 and Pain in left toe(s) M79.[address] [address] 01/05/2024 Eugenia Azar Assessments Encounter Date Diagnosis (ICD Code) Assessment Notes Treatment Notes Treatment Clinical Notes Section Notes 01/05/2024 Pain in right foot (ICD-10 - M79.671) 01/05/2024 Brown's neuroma of right foot (ICD-10 - G57.61) 03/29/2024 Pain in right foot (ICD-10 - M79.671) 07/05/2024 Brown's neuroma of right foot (ICD-10 - G57.61) 07/05/2024 Tinea pedis of both feet (ICD-10 - B35.3) 11/09/2024 Tinea unguium (ICD-10 - B35.1) 11/09/2024 Pain in right toe(s) (ICD-10 - M79.674) 07/05/2024 Pain in right foot (ICD-10 - M79.671) 11/09/2024 Pain in left toe(s) (ICD-10 - M79.675) 03/29/2024 Brown's neuroma of right foot (ICD-10 - G57.61) 01/05/2024 Tinea unguium (ICD-10 - B35.1) 03/29/2024 Tinea unguium (ICD-10 - B35.1) 01/05/2024 Pain in right toe(s) (ICD-10 - M79.674) 03/29/2024 Pain in right toe(s) (ICD-10 - M79.674) 07/05/2024 Tinea unguium (ICD-10 - B35.1) 03/29/2024 Pain in left toe(s) (ICD-10 - M79.675) 01/05/2024 Pain in left toe(s) (ICD-10 - M79.675) 07/05/2024 Pain in right toe(s) (ICD-10 - M79.674) 01/05/2024 Tinea pedis of both feet (ICD-10 - B35.3) 07/05/2024 Pain in left toe(s) (ICD-10 - M79.675) 03/29/2024 Tinea pedis of both feet (ICD-10 - B35.3) Plan Of Treatment Next Appt Details Provider Name:Eugenia sarmiento, 01/17/2025 02:00:00 PM, [address] [place], [address], Insurance Providers Payer Name Payer Address Payer Phone Subscriber Number Group Number Insured Name Patient Relationship to Insured Coverage Start Date Coverage End Date Medicare National [employer] [address] [place] [address] [id number] Billy Holman Self - [facility] the [facility] [address] [place] [address] [id number] Billy Holman Self - patient is the insured Medical (General) History Medical History History ICD Code Cancer Crohns disease Gall bladder removed High blood pressure Measles Mumps Chicken pox Surgical History Surgery Date(Month/Year) small bowel resection 1993 kidney surgery, cancer 2010 Gall bladder removal 1999 colonoscopy 05/2024 endoscopy 05/2024
--- OUTSIDE RECORDS SUMMARY | 2024-11-15 16:00 | XMS_ITS ---
[facility] [place] Address [address] [place] [address] Care Team Providers Care Fringing Machine Operator Name Role Phone Fredy Sales MD Primary Care Provider Unavailab Eugenia Cassidy [phone] Encounters Encounter Location Date Provider Diagnosis [address] [address] 10/28/2024 Eugenia Azar Plan Of Treatment Next Appt Details Provider Name:Eugenia sarmiento, 01/17/2025 02:00:00 PM, [address] [place], [address], Progress Notes * Billy HOLMANDOB:1950 (74 yo M)Acc No.[id number]:10/28/2024 Progress Note Patient:?Billy HOLMAN Provider:?Eugenia Azar DPM :1950???Age:74 Y???Sex:Male Asmmy e:10/28/2024 Address:[address] [place] Pcp:Fredy Sales MD Subjective: * Chief Complaints: * ??? * Medical History:? Objective: * Vitals:? Assessment: Plan: * Treatment: * Images: * The named appointment provid er may or may not be the originator of this progress note, and it is not deemed complete until electronically signed by the appointment provider. Sign off status: Pending * Provider:?Eugenia Azar DPM Date:?07/2024 Generated for Charlee beltran/Kristine/Kareem on:?11/15/2024 04:00 PM EDT
--- OUTSIDE RECORDS SUMMARY | 2024-11-15 16:00 | XMS_ITS ---
Author [facility] [place] Address [address] [place] [address] Care Team Providers Care Grain Operations Manager Name Role Phone Fredy Sales MD Primary Care Provider Unavailab Eugenia Cassidy Unavailable [phone] Willow Smiley Unavailable [phone] Allergies Allergen (clinical drug ingredient) Drug/Non Drug Allergy documented on EMR Reaction Allergy Type Onset Date Status Substance with sulfonamide structure and antibacterial mechanism of action (substance) Sulfa Antibiotics hives Drug Allergy Active REASON FOR VISIT Painful nail(s) aggrevated by shoes causing difficulty standing/walking Medications Medication SIG (Take, Route, Frequency, Duration) Notes Start Date End Date Status amLODIPine Besylate 10 MG 1 tablet Orally Once a day Active Aspir-81 Active Vitamin D Active Atenolol 50 MG 1 tablet Orally Once a day Active Ciclopirox Olamine 0.77 % 1 application Externally Twice a day for 30 days Not-Taki ruby Social History Tobacco Use: Social History Observation [...] user? No Vital Signs Height 6ft in 11/09/2024 Weight 222 lbs 11/09/2024 BMI 30.11 kg/m2 11/09/2024 Blood pressure systolic 130 mm Hg 11/10/19 25 Blood pressure diastolic 70 mm Hg 025 Encounters Encounter Location Date Provider Diagnosis [facility] [address] [address] 11/09/2024 Willow Smiley Tinea unguium B35.1 ; Pain in right toe(s) M79.674 and Pain in left toe(s) M79.675 Assessments Encounter Date Diagnosis (ICD Code) Assessment Notes Treatment Notes Treatment Clinical Notes Section Notes 11/09/2024 Tinea unguium (ICD-10 - B35.1) 11/09/2024 Pain in right toe(s) (ICD-10 - M79.674) 11/09/2024 Pain in left toe(s) (ICD-10 - M79.675) Plan Of Treatment Next Appt Details Follow Up: 3 Months, Reason: Provider Name:Eugenia sarmiento, 01/17/2025 02:00:00 PM, [address] [place] [address], [address], Procedure Notes * Category Sub-Category Detail Notes [...] use of a nail nipper and/or dremel-type valve grinder, to a more viable healthy nail [...] to maintain effectiveness in symptomatic relief - [address]35 Progress Notes * Steve HOLMAN:1950 (74 yo M)Acc No.[id number]:11/09/2024 Progress Note Patient:?Billy HOLMAN Provider:?Willow Smiley DPM :1950???Age:74 Y???Sex:Male Sammy e:11/09/2024 Address:[address] [place], [place] [id number] Pcp:Fredy Sales MD Subjective: * Chief Complaints: * ???Painful nail(s) aggrevate d by shoes causing difficulty standing/walking * HPI: ???Painful Nails:?Pt States Last PCP Visit:?Date:?10/11/2024 * ROS:?General/Constitutional:?Nausea?denies.?Vomiting?denies.?Hunger Thirst?denies.?Loss appetite?denies.?Chills?denies.?Fatigue?denies.?Fever?denies.?Night Sweats?denies.?Unexplained weight loss?denies.?Unexplained weight gain?denies.?HEENTM:?Dentures?denies.?Dizziness?denies.?Glasses/contacts?admits, denies.?Retinopathy?denies.?Blurred/double vision?denies.?TMJ?denies.?Discharge/drainage?denies.?Implants?denies.?Sore throat?denies.?Dental implants?denies.?Hard of hearing ?admits, denies.?Difficulty chewing/swallowing/speaking?denies.?Nose bleeds?denies.?Sore mouth?denies.?Respiratory:?On Oxygen?denies.?Pneumonia/pleurisy?admits, denies.?Bronchitis?denies.?Emphysema?denies.?Coughing?denies.?Cough blood?denies.?Shortness of breath?denies.?Wheezing?denies.?Cardiovascular:?Pacemaker?denies.?MVP?denies.?WPW?denies.?CHF?denies.?Heart attack?denies.?Septal defect?denies.?Rapid beat?denies.?Chest pain ?denies.?Atrial Fib.?denies.?Murmur/Palpitations?denies.?Gastrointestinal:?Hemorrhoids?denies.?Stomach/Abdominal pain?denies.?Dark blood stool?denies.?Irritable bowel ?admits, denies.?Constipation?denies.?Diarrhea?admits, denies.?Hematology:?Swelling?denies.?Clots?denies.?Varicose Veins?denies.?Bruising?denies.?Bleeding problem?denies.?Genitourinary:?Blood urine?denies.?Frequent/Painfu/urination/bladder control?denies.?Kidney stones?denies.?Infection (UTI)?denies.?Nephropathy?denies.?sex trans dis (STD)?denies.?Prostate?denies.?Musculoskeletal:?Hammertoes?denies.?Bunions?denies.?Back Pain?denies.?Muscle Cramps/ Resting?denies.?Muscle cramps / walking?denies.?Generalized aches and pains?denies.?Weakness?denies.?Integ.:?Winklre?denies.?Scars?denies.?Corns/calluses?denies.?Ingrown nails?denies.?Painful nails?admits, denies.?Open Sores?denies.?Rashes?denies.?Neurologic:?Difficulty sleeping?denies.?Brain disorder?denies.?Numbness?admits.?Balance trouble?denies.?Confusion?denies.?Fainting/blackouts?denies.?Tingling?admits.?Tr emors?denies.? * Medical History:? * Surgical History:?small ping l resection [address] [place] [address] surgery, cancer 2010Gall bladder removal 2000colonoscopy 05/2024endoscopy [...] ?Occupation: Retired. * Medications:?TakingVitamin D amLODIPine Besylate 10 MG Tablet 1 tablet Orally Once a day Aspir-81 Atenolol 50 MG Tablet 1 tablet Orally Once a day Taking Vitamin D Taking amLODIPine Besylate 10 MG Tablet 1 tablet Orally Once a [...] : hivesyes[Allergies Verified] Objective: * Vitals:?Ht: 6ft, Wt:222, BMI :30.11, Shoe size: 11.5W, BP:130/70mm Hg, Ht-cm: 182.88 cm, Wt-k.7 kg. * Examination: ???Nails: ?NAILS are:?Elongated, overgrown, dystrophic, lytic, greater than 3mm thick, discolored and friable with crumbly malodorous subungual debris, with pain on palpation, TA, T1, T2, T3, T4, T5, T6, T7, T8, T9.? Assessment: * Assessment: 1.?Tinea unguium - B35.1 (Pr imary)???2.?Pain in right toe(s) - M79.674???3.?Pain in left toe(s) - M79.675??? Plan: * [...] use of a nail nipper and/or dremel-type valve grinder, to a more viable healthy nail [...] to maintain effectiveness in symptomatic relief - 94602.? * Procedure Codes:?46326 DEBRI DE NAIL, 6 OR MORE, Modifiers: XS * Preventive Medicine:? ??Screening/Special Tests:?Fall Risk?Assessment:?Performed ?Screening:?No falls in the past year ?FALLS: Screening for Future Fall Risk?Have you had two or more falls in the past year??No ?Have you had any falls with injury in the past year??No * Follow Up:?3 Months * Images: * Sign off status: Completed true * Provider:?Willow Smiley DPM Date:?0 11/09/2024 Generated for Charlee beltran/Kristine/Kareem on:?11/15/2024 03:59 PM EDT History and Physical Notes * HPI (History of Present Illness) Category Sub-Category Detail Notes Category Not es Painful Nails Pt States Last PCP Visit: Date:: 10/11/2024 Examination Category Sub-Category Detail Notes Category Not es Nails NAILS are: Elongated, overg rown, dystrophic, lytic, greater than 3mm thick, discolored and friable with crumbly malodorous subungual debris, with pain on palpation, TA, T1, T2, T3, T4, T5, T6, T7, T8, T9
== END 2024-11-15 15:05 | disposition home or self-care (01) ==
LOC: HO.HOS 14:40
PROVIDERS: PCP Family Medicine; Visit Provider Orthopaedic Surgery
DX: M17.12 Unilateral primary osteoarthritis, left knee (principal)
CPT/HCPCS: 20610; 99213

== ENCOUNTER → 2024-11-15 14:39 | Outpatient (BNVA) | payer MEDICARE, SELFPAY | PROVIDERS: PCP Family Medicine; Visit Provider Orthopaedic Surgery | DX: M17.12 Unilateral primary osteoarthritis, left knee (principal) | CPT/HCPCS: 20610; 99212; J2003; J7318 ==

== ENCOUNTER → 2024-12-19 10:02 | Outpatient (REF) | payer MEDICARE, SELFPAY ==
--- OUTSIDE RECORDS SUMMARY | 2024-11-08 06:00 | XMS_ITS ---
[facility] [place] Address [address] [place] [address] Care Team Providers Care Service Architect Name Role Phone Fredy Sales MD Primary Care Provider Unavailab Eugenia Cassidy Unavailable [phone] Yanes Encounters Encounter Location Date Provider Diagnosis [address] [address] 11/08/2024 Eugenia Azar Plan Of Treatment Next Appt Details Provider Name:Eugenia sarmiento, 01/17/2025 02:00:00 PM, [address] [place], [address], Progress Notes * Billy HOLMANDOB:1950 (74 yo M)Acc No.[id number]:11/08/2024 Progress Note Patient: Billy THOMAS Provider: Darian Azar DPM :1950 A ge:74 Y S ex:Male Date:11/08/2024 Address:[address] [place], [place] Pcp:Fredy Sales MD Subjective: * Chief Complaints: * [address] Yanes. * Medical History: Objective: * Vitals: Assessment: Plan: * Treatment: * Images: * The named appointment provid er may or may not be the originator of this progress note, and it is not deemed complete until electronically signed by the appointment provider. Sign off status: Pending * Provider: Darian Azar, KUN Date: 0 11/08/2024 Generated for Charlee beltran/Kristine/Kareem on: 0 12/19/2024 11:06 AM EDT
--- NOTE | 2024-12-19 10:08 | CA_ITS ---
Transthoracic Echocardiogram Patient (Last, First, Middle): Billy Holman Le Grand Gender: Male Date of : 1950 Age: 74 Procedure Date: 12/19/2024 Procedure Type: Transthoracic Echocardiogram Location: OP Height: 182.88 cm Weight: 100.7 kg BSA: 2.23 m2 Heart Rate: bpm BP: 122 / 66 mmHg Field Tech: Referring MD: Moe Toth MD Symptoms: I71.2 - Thoracic aortic aneurysm, without rupture Study Quality: Fair ECG Rhythm: Sinus Conclusions: - The left ventricular systolic function is normal. The calculated ejection fraction is 60% by biplane method. - There is mild aortic valve regurgitation. - There is moderate dilatation of the ascending aorta measuring 4.80 cm. Findings Left Ventricle Normal left ventricular cavity size. There is moderately increased left ventricular wall thickness. The left ventricular systolic function is normal. The calculated ejection fraction is 60% by biplane method. There is no evidence of regional wall motion abnormalities. Evidence suggests grade I (mild) diastolic dysfunction. Right Ventricle Normal right ventricular cavity size and systolic function. Atria The left atrium is moderately dilated. The right atrium is mildly dilated. Aortic Valve There is a normal trileaflet aortic valve. There is mild calcification of the aortic valve. There is no aortic valve stenosis. There is mild aortic valve regurgitation. Mitral Valve The mitral valve appears normal. There is trace mitral valve regurgitation. There is no mitral valve stenosis. Pulmonic Valve The pulmonic valve is likely normal. Tricuspid Valve There is trace tricuspid valve regurgitation. There is no evidence of pulmonary hypertension. Great Vessels There is moderate dilatation of the ascending aorta measuring 4.80 cm. Venous The inferior vena cava is normal in size and collapses greater than 50% with inspiration. Pericardium/Pleural There is no evidence of pericardial effusion. Prior Study Comparison No significant change compared to prior study dated: 06/13/2024. Measurements 2D Linear Measurements IVSd: 1.46 0.6-0.9/0.6-1.0 cm LVIDd: 4.09 3.9-5.3/4.2-5.9 cm LVIDd Index: 1.83 2.4-3.2/2.2-3.1 cm/m2 LVIDs: 2.86 2.0-3.6 cm LVPWd: 1.44 0.7-1.1 cm Ao Root: 3.90 2.1-3.5 cm LA Diam: 4.80 2.7-3.8/3.0-4.0 cm LAIDs Index: 2.15 1.5-2.3 cm/m2 LV Mass: 284.04 67-162/88-224 g LV Mass Index: 127.37 43-95/49-115 g/m2 LVOT Diam: 2.50 3.0+(-)1.3 cm 2D Systolic Function EF 4C: 60.70 >55% EF 2C: 55.90 >55% EF BiP: 59.50 >55% Mitral Valve MV Pk E: 0.42 MV PK A: 0.88 MV Decel Time: 279.00 E/A: 0.50 E'Lateral: 6.64 E'Medial: 3.59 E/E' Med: 11.70 E/E' Lat: 6.30 PHT: 82.00 MVA PHT: 2.68 Decel [place]: 1.50 Aortic Valve AoV Pk Varun: 1.67 AoV Mn Varun: 1.16 AoV VTI: 0.40 AoV Pk Grad: 11.00 Aov Mn Grad: 6.00 THANH Cont.VTI: 2.76 LVOT LVOT Pk Varun: 0.92 LVOT Mn Varun: 0.61 LVOT VTI: 0.22 LVOT Pk Grad: 3.00 LVOT Mn Grad: 2.00 LVOT Diam: 2.50 LVOT Area: 4.91 Diastolic Function MV Pk E: 0.42 MV Pk A: 0.88 E/A: 0.50 E'Medial: 3.59 E/E' Med: 11.70 E' Laterial: 6.64 E/E' Lat: 6.30 Right Ventricle TAPSE (mm): 30.00 TVS' Varun: 10.00 Tricuspid Valve TR Pk Varun: 2.23 TR Pk Grad: 20.00 RA Press: 3.00 RVSP: 23.00 Great Vessels Aorta Ao Root-2D: 3.90 2.0-3.7 cm Ao Asc: 4.80 2.1-3.4 cm Pulmonary Valve PV Pk Varun: 1.33 Peak PV Grad: 7.00 Updated in Other Vendor System with Status of Final Micah Rebolledo MD electronically signed on 12/20/2024 10:59:39 AM with status of Final
== END ==
LOC: HO.CARD 10:02
PROVIDERS: PCP Student in an Organized Health Care Education/Training Program; Visit Provider Internal Medicine Cardiovascular Disease
DX: I71.20 Thoracic aortic aneurysm, without rupture, unspecified (principal)
CPT/HCPCS: 93306

== ENCOUNTER → 2024-12-19 10:08 | Outpatient (BNV) | payer MEDICARE, SELFPAY | PROVIDERS: PCP Student in an Organized Health Care Education/Training Program; Visit Provider Internal Medicine | DX: I35.1 Nonrheumatic aortic (valve) insufficiency (principal); I77.810 Thoracic aortic ectasia; I51.89 Other ill-defined heart diseases | CPT/HCPCS: 93306 ==

== ENCOUNTER 2024-12-29 12:38 | Outpatient (AMB) | payer MEDICARE, SELFPAY ==
--- OUTSIDE RECORDS SUMMARY | 2024-11-08 06:00 | XMS_ITS ---
[facility] [place] Address [address] [place] [address] Care Team Providers Care Meatman Name Role Phone Fredy Sales MD Primary Care Provider Unavailab Eugenia Cassidy Unavailable [phone] Yanes Encounters Encounter Location Date Provider Diagnosis [address] [address] 11/08/2024 Eugenia Azar Plan Of Treatment Next Appt Details Provider Name:Eugenia sarmiento, 01/17/2025 02:00:00 PM, [address] [place], [address], Progress Notes * Billy HOLMANDOB:1950 (74 yo M)Acc No.[id number]:11/08/2024 Progress Note Patient: Billy THOMAS Provider: Darian Azar DPM :1950 A ge:74 Y S ex:Male Date:11/08/2024 Address:[address] [place] Pcp:Fredy Sales MD Subjective: * Chief Complaints: * [address] Yanes. * Medical History: Objective: * Vitals: Assessment: Plan: * Treatment: * Images: * The named appointment provid er may or may not be the originator of this progress note, and it is not deemed complete until electronically signed by the appointment provider. Sign off status: Pending * Provider: Darian Azar, DPJaqueline Date: 0 11/08/2024 Generated for Charlee beltran/Kristine/Kareem on: 0 12/29/2024 12:50 PM EDT
[2024-12-29 12:45] VITALS: BP 138/78; PULSE 62; BMI 30.2
--- NOTE | 2024-12-29 12:45 | A.OFFVIS_ITS ---
Vital Signs 12/29/24 12:45 Height 6 ft Weight 223 lb BMI 30.2 BP 138/78 Blood Pressure Location Lt brachial Position Sitting Pulse 62 Pulse Source Monitor Intake Visit Reasons: 6 mth f/up s/p echo Allergies Sulfa (Sulfonamide Antibiotics) (SULFA (SULFONAMIDE ANTIBIOTICS)) Allergy (Unknown, Verified 11/15/24 14:47) HIVES Medication List - Last Reconciled 12/29/24 by Moe Toth MD amlodipine 10 mg PO DAILY aspirin 81 mg PO DAILY atenolol 50 mg PO DAILY 90 days cholecalciferol (vitamin D3) 2,000 units PO DAILY omeprazole 20 mg PO DAILY 30 days ondansetron HCl 4 mg PO BID PRN 60 days HPI Comments Details: Billy comes for follow-up. Recent echocardiogram shows moderately enlarged ascending aorta at 4.8 cm which is stable compared to prior echocardiogram results. Different from the CTA results although there was no overall significant growth in his ascending aortic aneurysm. His amlodipine was recently increased to 10 mg due to elevated blood pressures. He notices blood pressure ranging from 120 5-135 systolic at home. No major spikes in his blood pressure. Remains active. Denies any exertional chest pain or shortness of breath. Denies any orthopnea, PND, leg edema. No lightheadedness, syncope. No prolonged palpitations. [facility] Medical History HTN (hypertension) Thoracic aortic aneurysm Surgical History History of esophagogastroduodenoscopy (EGD) H/O colonoscopy Hx of cholecystectomy Family History Father No problems noted. Mother Lung cancer Brother Pancreatic cancer Social History Are you a primary manager care management to a significant other at home: No Do you presently have visiting nurse or other home services: No Alcohol intake: current Alcohol intake frequency: holidays/special occasions only Patient Tobacco Use Status: Never used Tobacco Review of Systems Const Denies weakness Eyes Reports no additional complaints ENT Reports no additional complaints and Denies dizziness Card Reports no additional complaints, Denies chest pain, Denies chest pain with activity, Denies syncope, Denies rapid heart rate, Denies pedal edema, Denies edema, Denies leg edema, Denies lightheadedness, Denies palpitations, Denies dyspnea, Denies dyspnea on exertion and Denies orthopnea Resp Denies cough, Denies dyspnea and Denies dyspnea on exertion GI Denies hematochezia and Denies change in stool character Musc Denies abnormal gait, Denies muscle cramps, Denies muscle weakness, Denies numbness, Denies radiating pain into limb and Denies tingling Neuro Denies abnormal gait, Denies dizziness, Denies syncope, Denies numbness, Denies tingling and Denies weakness Endo Denies palpitations Physical Exam Vital Signs: Last Vital Signs Pulse 62 12/29/24 12:45 BP 138/78 12/29/24 12:45 BMI result Body Mass Index 30.2 Const General: cooperative, comfortable, no acute distress, alert and awake Nutritional Appearance: average body habitus Orientation/consciousness: patient oriented x3 Limitations: no limitations Neck Neck: Yes trachea midline, Yes supple and Yes no JVD Chest Chest palpation & inspection: normal inspection of the chest Resp Effort & Inspection: normal respiratory effort Auscultation: clear to auscultation bilaterally Cardio Jugular venous distension: no JVD Palpation: normal PMI Rate: regular rate Rhythm: regular rhythm Heart sounds: S1 normal heart sound present, S2 normal heart sound present, no click, no gallops, Murmur heart sound present systolic early, decrescendo and crescendo and no rubs Peripheral pulses: Peripheral pulses 2+ throughout GI Auscultation: normal bowel sounds Skin General skin exam: no rashes or lesions noted Neuro General: patient oriented x3 and no focal motor deficits Extrem General: Yes no clubbing, cyanosis or edema Psych Appearance: grossly normal Office Procedures EKG Details: EKG shows normal sinus rhythm with moderate voltage criteria for LVH with left axis deviation [id number], Complete Assessment & Plan Assessment & Plan (1) Thoracic aortic aneurysm: Code(s): I71.2 - Thoracic aortic aneurysm, without rupture Category: Medical Plan: Thoracic aortic aneurysm which is moderately enlarged. Currently has remained more or less stable. Will continue monitor annually by echocardiogram. We discussed management of thoracic aortic aneurysm which predominantly driven by aggressive blood pressure control. Advised to avoid sudden strenuous isometric exercise. Advised to seek emergency care for sudden-onset severe chest pain. At this point time no surgical intervention is recommended. (2) HTN (hypertension): Code(s): I10 - Essential (primary) hypertension Category: Medical Plan: Hypertension with hypertensive heart disease which is currently well optimized advised to monitor blood pressure at home and maintain a log. Goal blood pressure less than 130/84 overall. Blood pressure continues to remain elevated consider adding spironolactone to his regimen in addition to amlodipine and atenolol. Signs and symptoms of heart failure were discussed. Will follow up in the clinic in 1 year's time, sooner p.r.n.. Thank you for allowing me to partake in his care Medications: Changed From amlodipine 5 mg PO DAILY 90 tabs 3RF To amlodipine 10 mg PO DAILY Coding Level of Care Code Est Pt Level 4 (32499) Complex EM visit Add On G2211 Diagnoses Thoracic aortic aneurysm I71.2 HTN (hypertension) I10 CPT Codes EKG - CPT: 97447-[id number], Complete ([id number])
== END 2024-12-29 13:02 | disposition home or self-care (01) ==
LOC: HO.HCS 12:39
PROVIDERS: PCP Family Medicine; Visit Provider Internal Medicine Cardiovascular Disease
DX: I71.20 Thoracic aortic aneurysm, without rupture, unspecified (principal); I10 Essential (primary) hypertension
CPT/HCPCS: 93010; 99214; G2211

== ENCOUNTER → 2024-12-29 12:38 | Outpatient (BNVA) | payer MEDICARE, SELFPAY | PROVIDERS: PCP Family Medicine; Visit Provider Internal Medicine Cardiovascular Disease | DX: I71.21 Aneurysm of the ascending aorta, without rupture (principal); I11.0 Hypertensive heart disease with heart failure; I50.9 Heart failure, unspecified; R94.31 Abnormal electrocardiogram [ECG] [EKG]; Z79.82 Long term (current) use of aspirin; Z79.899 Other long term (current) drug therapy | CPT/HCPCS: 93005; 99212 ==

== ENCOUNTER 2025-01-30 10:20 | Day surgery (SDC) | payer MEDICARE, SELFPAY ==
--- OUTSIDE RECORDS SUMMARY | 2024-11-08 06:00 | XMS_ITS ---
[facility] [place] Address [address] [place] [address] Care Team Providers Care Relief Operator Name Role Phone Fredy Sales MD Primary Care Provider Unavailab Eugenia Cassidy Unavailable [phone] Yanes Encounters Encounter Location Date Provider Diagnosis [address] [address] 11/08/2024 Eugenia Azar Plan Of Treatment Next Appt Details Provider Name:Eugenia sarmiento, 01/17/2025 02:00:00 PM, [address] [place], [address], Progress Notes * Billy HOLMANDOB:1950 (74 yo M)Acc No.[id number]:11/08/2024 Progress Note Patient: Billy THOMAS Provider: Darian Azar DPM :1950 A ge:74 Y S ex:Male Date:11/08/2024 Address:[address] [place], [place] Pcp:Fredy Sales MD Subjective: * Chief Complaints: [...] 11/08/2024 Generated for Charlee beltran/Kristine/Kareem on: 0 01/05/2025 09:37 AM EDT
[2025-01-26 14:29] VITALS: BMI 30.2
--- NOTE | 2025-01-27 10:03 | HO.ANESPROP2 ---
Documented by User: Kyung Cancino NP 01/27/25 10:05 HPI - Anesthesia Eval Consult details Narrative: 74yo M for?Upper Endoscopy s/p EGD and [place] 06/2024 Follows [facility] for HTN, TAA (4.8cm). Stable at 12/2024 office visit with yearly f/u PMFSH Active Problems Active Problems: All Active Problems Multiple gastric ulcers (Acute) Osteoarthritis of left knee (Acute) Left knee pain (Acute) Chest pain, atypical (Acute) Nausea (Acute) Crohn's disease of both small and large intestine with rectal bleeding (Acute) Chronic diarrhea (Acute) HTN (hypertension) (Acute) Thoracic aortic aneurysm (Acute) Past Medical History Medical History Crohn's disease Arthritis HTN (hypertension) Thoracic aortic aneurysm Family History Family History Father No problems noted. Mother Lung cancer Brother Pancreatic cancer Surgical History Surgical History History of esophagogastroduodenoscopy (EGD) H/O colonoscopy Hx of cholecystectomy Social History Social History Are you a primary transitional care liaison to a significant other at home: No Do you presently have visiting nurse or other home services: No Alcohol intake: current Alcohol intake frequency: holidays/special occasions only Patient Tobacco Use Status: Never used Tobacco Use of substances other than those prescribed or required for medical reasons: No Advance Directives: No Advance Directives Information Provided: Yes Meds Allergies Allergy/AdvReac Type Severity Reaction Status Date / Time Sulfa (Sulfonamide Allergy Unknown HIVES Verified 11/15/24 14:47 Antibiotics) (SULFA (SULFONAMIDE ANTIBIOTICS)) Home Medications ?Medication ?Instructions ?Recorded ?Confirmed ?Last Taken ?Type aspirin 81 mg tablet,delayed 81 mg PO DAILY 06/05/21 01/26/25 Unknown History release amlodipine 5 mg tablet 10 mg PO DAILY 12/29/24 01/26/25 Unknown History cholecalciferol (vitamin D3) 25 2,000 unit PO DAILY 12/29/24 01/26/25 Unknown History mcg (1,000 unit) capsule Exam Height,Weight and Vital Signs: Height 6 ft Weight 101.151 kg Narrative Narrative: EKG 12/2024 EKG Details: EKG shows normal sinus rhythm with moderate voltage criteria for LVH with left axis deviation ECHO 11/2024 Conclusions: - The left ventricular systolic function is normal. The calculated ejection fraction is 60% by biplane method. - There is mild aortic valve regurgitation. - There is moderate dilatation of the ascending aorta measuring 4.80 cm. Assessment and Plan Assessment Anesthesia Assessment: Chart Reviewed Documented by User: Jaz Cortes MD 01/30/25 11:35 [facility] Past Medical History Medical History Crohn's disease Arthritis HTN (hypertension) Thoracic aortic aneurysm Family History Family History Father No problems noted. Mother Lung cancer Brother Pancreatic cancer Family history of problems with anesthesia: No Surgical History Surgical History History of esophagogastroduodenoscopy (EGD) H/O colonoscopy Hx of cholecystectomy History of Problems with Anesthesia: No Social History Social History Are you a primary transitional care liaison to a significant other at home: No Do you presently have visiting nurse or other home services: No Alcohol intake: current Alcohol intake frequency: holidays/special occasions only Patient Tobacco Use Status: Never used Tobacco Use of substances other than those prescribed or required for medical reasons: No Advance Directives: No Advance Directives Information Provided: Yes Meds Allergies Allergy/AdvReac Type Severity Reaction Status Date / Time Sulfa (Sulfonamide Allergy Unknown HIVES Verified 11/15/24 14:47 Antibiotics) (SULFA (SULFONAMIDE ANTIBIOTICS)) Home Medications ?Medication ?Instructions ?Recorded ?Confirmed ?Last Taken ?Type aspirin 81 mg tablet,delayed 81 mg PO DAILY 06/05/21 01/26/25 Unknown History release amlodipine 5 mg tablet 10 mg PO DAILY 12/29/24 01/26/25 Unknown History cholecalciferol (vitamin D3) 25 2,000 unit PO DAILY 12/29/24 01/26/25 Unknown History mcg (1,000 unit) capsule Exam Airway Mallampati Class: II TM Dist: <=3cm Neck ROM: Limited Heart: rrr Lungs: cta Assessment and Plan Assessment Anesthesia Assessment: Anesthesia Plan Discussed Final Anesthetic Review Family History of Problems with Anesthesia: No History of Problems with Anesthesia: No NPO: Yes ASA Class: III Final Preanesthetic Review: No Changes in Pt Med Stat, Meds/Allgs Chart Reviewed, Consent Obtained/Reviewed and Anes Risks/Benef Reviewed Patient Risk: Intermediate Procedure Risk: Low Anesthetic Plan Anesthetic Plan: MAC: Disposition: Standard PACU
[2025-01-30 10:40] VITALS: BMI 30.2
--- NOTE | 2025-01-30 10:42 | MHC.SHP ---
Pre-Procedural Eval Section A - 24 Hr Update-Section A only Date of Service: 01/30/25 The patient is an INPATIENT: No The patient has been examined within 24 hours of the surgical procedure. The History & Physical has been completed within 30 days and I have reviewed it.: No Section B - Complete if H&P > 30 days Chief Complaint: Follow-up of multiple gastric ulcers Relevant Family History (Specify if Yes): No Relevant Social History: None Present Medications: see Short Stay Collaborative assessment Medical History: Significant History (HTN (hypertension) Thoracic aortic aneurysm) History of Previous Operations: Relevant previous surgery/procedure and date(s) (History of esophagogastroduodenoscopy (EGD) H/O colonoscopy Hx of cholecystectomy) Allergies: Allergies Allergy/AdvReac Type Severity Reaction Status Date / Time Sulfa (Sulfonamide Allergy Unknown HIVES Verified 11/15/24 14:47 Antibiotics) (SULFA (SULFONAMIDE ANTIBIOTICS)) Review of Systems Sugical H&P ROS: Negative: Constitution, Cardiovascular, Respiratory and Gastrointestinal Exam Surgical H&P Exam: Normal: Heart, Normal: Lungs, Normal: Extremities and Normal: Abdomen Plan Diagnosis/Plan: Unchanged I have reviewed the history and physical and performed a pertinent physical examination on my patient. No changes have occurred unless specified. Time Spent With Patient Time: Total time managing care of this patient today ____ minutes.
[2025-01-30 10:55] VITALS: BP 141/73; PULSE 48; RESP 16; TEMP 36.4; O2SAT 97
[2025-01-30] MEDS: Lactated Ringers 1,000 ML 100 ML IVCONT (10:56)
[2025-01-30 12:10] VITALS: BP 122/60; PULSE 49; RESP 18; TEMP 36.4; O2SAT 99
[2025-01-30 12:25] VITALS: BP 126/72; PULSE 50; RESP 18; TEMP 37; O2SAT 99
--- NOTE | 2025-01-30 13:20 | W.PM.OPN ---
Operative Note Operative Note Date of Service: 01/30/25 Narrative: FLEXIBLE TRANSORAL UPPER GASTROINTESTINAL ENDOSCOPY WITH BIOPSIES Pre-op diagnosis: FU of multiple gastric ulcers Post-op diagnosis: GERD, Gastritis, Endoscopist:? Ralf Goldberg MD Anesthesia:?MAC UPPER ENDOSCOPY Consent: Indications for the procedure and potential complications of bleeding, perforation, reaction to medications and missed diagnosis were discussed with the patient and informed consent was obtained. Instrument: Olympus GIF H 190 mid size upper endoscope Monitoring: Vital signs and clinical assessment, continuous EKG monitoring, Pulse oximetry, Carbon Dioxide monitoring and blood pressure monitoring were done throughout the procedure. Procedure: The patient was placed in the left lateral decubitis position and pre-procedure medications were administered and a bite block was placed. The endoscope was inserted into the mouth and advanced under direct vision to the third part of duodenum. A careful inspection was made as the upper endoscope was withdrawn including a retroflexed examination of the proximal stomach; Findings and interventions are described below. Findings: Larynx: Normal Esophagus: GE junction at 38 cms. No esophagitis or Gibbons's. Stomach: Multiple 5 to 10 mm benign appearing nodules in the gastric antrum - biopsied. Ulcer seen on previous EGD healed completely. Moderate gastric antral erythema - biopsies were obtained from the antrum to check for Helicobacter pylori.. Grade 2 flap valve on retroflexed examination of the cardia. Duodenum: Normal bulb and descending duodenum Intervention: Biopsies as noted above Impression and Post Procedure Diagnosis: Endoscopy Findings: ESOPHAGUS: Normal STOMACH: Multiple 5 to 10 mm benign appearing nodules in the gastric antrum - biopsied. Ulcer seen on previous EGD healed completely. DUODENUM: Normal Plan: Pt has a FU appointment on 02/09/[address] Goldberg. Above findings were reviewed with the patient and relevant handouts were given and the discharge area.
== END 2025-01-30 12:57 | disposition home or self-care (01) ==
PROVIDERS: PCP Student in an Organized Health Care Education/Training Program; Visit Provider Internal Medicine Gastroenterology
PROC: 0DJ08ZZ Inspection of Upper Intestinal Tract, Via Natural or Artificial Opening Endoscopic (ICD-10-PCS; CPT 43235; principal; 2025-01-30 12:00)
DX: K21.9 Gastro-esophageal reflux disease without esophagitis (principal); K29.60 Other gastritis without bleeding; J33.8 Other polyp of sinus; I10 Essential (primary) hypertension; K52.9 Noninfective gastroenteritis and colitis, unspecified; K50.811 Crohn's disease of both small and large intestine with rectal bleeding; Z79.82 Long term (current) use of aspirin; Z79.899 Other long term (current) drug therapy
CPT/HCPCS: 43239; 88305; 88313; 88342; J2003; J2704

== ENCOUNTER → 2025-01-30 10:20 | Outpatient (BNV) | payer MEDICARE, SELFPAY | PROVIDERS: PCP Student in an Organized Health Care Education/Training Program; Visit Provider Internal Medicine Gastroenterology | DX: K29.70 Gastritis, unspecified, without bleeding (principal); K21.9 Gastro-esophageal reflux disease without esophagitis | CPT/HCPCS: 43239 ==

== ENCOUNTER 2025-02-21 14:16 | Outpatient (AMB) | payer MEDICARE, SELFPAY ==
--- OUTSIDE RECORDS SUMMARY | 2025-02-13 10:45 | XMS_ITS ---
[facility] [place] Address [address] [place] [address] Care Team Providers Care Billboard Poster Name Role Phone MD Claudia Germain Primary Care Provider Unavailabl Eugenia Mike Unavailable [phone] Willow Smiley [phone] Encounters Encounter Location Date Provider Diagnosis [address] [address] 02/13/2025 Willow Smiley Plan Of Treatment Next Appt Details Provider Name:Eugenia sarmiento, 04/21/2025 10:00:00 AM, [address] [place] [address], [phone], Progress Notes * Billy HOLMANDOB:1950 (74 yo M)Acc No.[id number]:02/13/2025 Progress Note Patient: Billy THOMAS Provider: Tonie Smiley DPM :1950 A ge:74 Y S ex:Male Date:02/13/2025 Address[address] [id number] Pcp:MD Claudia Germain Subjective: * Chief Complaints: * * Medical History: Objective: * Vitals: Assessment: Plan: * Treatment: * Images: * The named appointment provid er may or may not be the originator of this progress note, and it is not deemed complete until electronically signed by the appointment provider. Sign off status: Pending * Provider: Tonie Smiley DPM Date: 0 02/13/2025 Generated for Charlee beltran/Kristine/Kareem on: 0 02/21/2025 03:13 PM EDT
--- NOTE | 2025-02-21 14:28 | MHC.OFFVIS ---
Vital Signs 02/21/25 14:31 Height 6 ft Weight 222 lb BMI 30.1 Intake Visit Reasons: OV- Left knee Durolane Follow up, 11/15/24. Intake Note: Billy is a 74 year old male who presents with complaints of left knee pain. He describes his left knee pain as sharp in nature. He has failed the last 3 months of conservative treatment which has included Tylenol, physical therapy exercises and a home exercise program. He states that he has taken Motrin in the past which seems to upset his stomach. He recently tripped over furniture and fell onto his right knee. He states that this point his right knee discomfort continues to improve. Allergies Sulfa (Sulfonamide Antibiotics) (SULFA (SULFONAMIDE ANTIBIOTICS)) Allergy (Unknown, Verified 02/21/25 14:32) HIVES Medication List - Last Reconciled 02/21/25 by Raymond Owens MD amlodipine 10 mg PO DAILY aspirin 81 mg PO DAILY atenolol 50 mg PO DAILY 90 days cholecalciferol (vitamin D3) 2,000 units PO DAILY omeprazole 20 mg PO DAILY 90 days ondansetron HCl 4 mg PO BID PRN 60 days [facility] Medical History Crohn's disease Arthritis HTN (hypertension) Thoracic aortic aneurysm Surgical History (Updated 02/08/25 @ 07:42 by Katelynn Chin) History of esophagogastroduodenoscopy (EGD) H/O colonoscopy Hx of cholecystectomy Family History Father No problems noted. Mother Lung cancer Brother Pancreatic cancer Social History Are you a primary manager medicare to a significant other at home: No Do you presently have visiting nurse or other home services: No Alcohol intake: current Alcohol intake frequency: holidays/special occasions only Patient Tobacco Use Status: Never used Tobacco Physical Exam Vital Signs: BMI result Body Mass Index 30.1 Const Other: Well-nourished well-developed very friendly male awake alert and oriented x3 in no acute distress Extrem Other: Right knee examination shows a small area of ecchymosis along the anteromedial aspect of his knee, no significant bursa swelling, no open skin lesions, minimal discomfort with range of motion, no instability Left knee examination shows a mild effusion, palpable crepitus with range of motion, pain with range of motion, no instability Results Reviewed Results Reviewed: X-rays of the patient's left knee taken previously show joint space narrowing, subchondral sclerosis, no acute bony abnormalities Assessment & Plan Assessment & Plan (1) Osteoarthritis of left knee: Code(s): M17.12 - Unilateral primary osteoarthritis, left knee Category: Medical Plan Billy presents with left knee pain due to osteoarthritis. I had a lengthy discussion with the patient regarding the treatment options. He wishes to hold off on surgery if at all possible. I agree with this plan. I will see if his insurance company will cover another Durolane injection for his left knee. I will see him back once the injection is available. He will contact me prior to that time should his symptoms worsen in any way. I spent 20 minutes in reviewing the patient's records and imaging studies, seeing the patient and documenting in the medical record. Medications: New meloxicam 15 mg PO DAILY 30 tabs 3RF Coding Level of Care Code Est Pt Level 3 (20057) Complex EM visit Add On G2211 Diagnoses Osteoarthritis of left knee M17.12
[2025-02-21 14:31] VITALS: BMI 30.1
--- OUTSIDE RECORDS SUMMARY | 2025-02-21 15:13 | XMS_ITS | Encounter Summary ---
Author Organization [facility] Address [address] [place] [address] Phone Care Team Providers Care Repairer Welding Systems And Equipment Name Role Phone Medhat Harper MD, PhD Unavailable [phone] Qiana Ibanez MD Unavailable [phone] Pcp, Unknown Primary Care Provider Fredy Daly DO Primary Care Provider [phone] Encounter Details Date Type Department Care Team (Late st Contact Info) Description 05/25/2018 Procedure Pass [facility] Imaging - MRI, [address] [place] [address] [place] [address] Social History Tobacco Use Types Packs/Day Years Used Date Smoking Tobacco: Never Smokeless Tobacco: Never Sex and Gender Information Value Date Recorded Sex Assigned at Not on file Legal Sex Male 7:30 PM EST Gender Identity Not on file Sexual Orientation Not on file documented as of this encounter Plan of Treatment Upcoming Encounters Date Type Department Care Team (Late st Contact Info) Description 05/15/2025 2:00 PM EST Office Visit [facility], .[place] [address] [facility] [address] [place], [place] [id number] Medhat Harper MD, PhD [address] [phone] [email or web address] documented as of this encounter Visit Diagnoses Not on filedocumented in this encounter Additional Health Concerns Assessment Noted Time PHQ-2 Depression Total Score: 0 06/08/20 17 1:39 PM EST documented as of this encounter Care Teams Repairer Welding Systems And Equipment Relationship Specialty Start Date End Date Pcp, Unknown PCP - General 03/15/24 05/01/24 Fredy Sales DO [address] [place] [address] PCP - General Family Medicine 05/02/24 Medhat Harper MD, PhD [address] [address] Dermatology 03/12/16 Qiana Ibanez MD [address] [address] [email or web address] Dermatology 03/12/16 documented as of this encounter Additional Source Comments The information contained in this document represents components of the legal health record. It is not the complete legal health record.[facility]
--- OUTSIDE RECORDS SUMMARY | 2025-02-21 15:13 | XMS_ITS | Encounter Summary ---
Author Organization [facility] Address [address] [place] [address] Phone Care Team Providers Care Carbon Capture Power Plant Operator Name Role Phone Medhat Harper MD, PhD Unavailable [phone] Qiana Ibanez MD Unavailable [phone] Pcp, Unknown Primary Care Provider Fredy Daly DO Primary Care Provider [phone] Encounter Details Date Type Department Care Team (Late Contact Info) Description 03/16/2020 Procedure Pass [facility] ENDO DEPT [address] [place], [place] [id number] Social History Tobacco Use Types Packs/Day Years Used Date Smoking Tobacco: Never Smokeless Tobacco: Never Alcohol Use Standard Drinks/Week Comments Yes 0 (1 standard drink = 0.6 oz pur e alcohol) 1 Sex and Gender Information Value Date Recorded Sex Assigned at Not on file Legal Sex Male 7:30 PM EST Gender Identity Not on file Sexual Orientation Not on file documented as of this encounter Plan of Treatment Upcoming Encounters Date Type Department Care Team (Late Contact Info) Description 05/15/2025 2:00 PM EST Office Visit [facility] at [facility] [address] [facility], [address] [place] [address] Medhat Harper MD, PhD [address] [address] [email or web address] documented as of this encounter Visit Diagnoses Not on filedocumented in this encounter Additional Health Concerns Assessment Noted Time PHQ-2 Depression Total Score: 0 06/15/20 19 12:10 PM EST documented as of this encounter Care Teams Carbon Capture Power Plant Operator Relationship Specialty Start Date End Date Pcp, Unknown PCP - General 03/15/24 05/01/24 [place] [address] [email or web address] PCP - General Family Medicine 05/02/24 Medhat Harper MD, PhD [address] [address] [email or web address] Dermatology 03/12/16 Qiana Ibanez MD [address] [address] [email or web address] Dermatology 03/12/16 documented as of this encounter Additional Source Comments The information contained in this document represents components of the legal health record. It is not the complete legal health record.[facility]
--- OUTSIDE RECORDS SUMMARY | 2025-02-21 15:13 | XMS_ITS | Clinical Summary ---
Author Organization [facility] Address [address] [place] [address] Phone Care Team Providers Care Physical Education Department Chair Name Role Phone Medhat Harper MD, PhD Unavailable [phone] Qiana Ibanez MD Unavailable Fredy Sales DO Primary Care Provider [phone] Allergies Active Allergy Reactions Criticality Noted Date Comments Andrea Inhibitors Cough 11/18/2010 Sulfa (Sulfonamide Antibiotics) Hives,Unknown Medium 08/26/2010 Converted from Drug Class Allergy: Sulfonamides (Systemic) Medications aspirin 81 mg chewable tablet Take 1 tablet by mouth daily. 03/17/2012 Active cholecalciferol (VITAMIN D3) 25 MCG (1,000 unit) tablet Take 1,000 Units by mouth daily. Active atenolol (TENORMIN) 50 mg tablet TAKE 1 TABLET DAILY 90 tablet 1 01/06/2023 Active amLODIPine (NORVASC) 5 MG tablet TAKE 1 TABLET DAILY 90 tablet 1 02/10/2023 Active Active Problems Problem Noted Date Diagnosed Date History of actinic keratosis 05/13/2022 Crohn's disease of both smal l and large intestine with other complication 04/03/2020 Renal cell cancer, unspecified laterality 2019 History of nonmelanoma skin cancer 01/16/2016 Basal cell carcinoma of scalp 01/20/2014 Overview (03/22/2020): Basal cell carcinoma of scalp BCC of R nose tip, s/p excision in Feb 2016 02/01/2020 shave bx-R mid pretibium, excision 02/29/20, residual BCC-Aldara x6 weeks Hypertensive disorder 09/15/2011 Overview (08/19/2014): Hypertensive disorder Squamous cell carcinoma 07/23/2007 Overview (09/01/2017): Squamous cell cancer; 10-15-01, left pinna, scaphoid fossa, Mohs surgery, Dr. Sales 08.11.2017 - shave biopsy proven early SCC on L mid cheek. Completely removed. Seborrheic dermatitis 07/23/2007 Overview (08/19/2014): Seborrheic dermatitis; 2003, face and scalp, head and shoulders shampoo Actinic keratosis 12/24/2006 Overview (08/19/2014): Actinic keratosis; 12-24-07, face,x3,LN 1--08, face x5 LN spray Resolved Problems Problem Noted Date Diagnosed Date Resolved Date Dysplastic nevus of skin 02/24/2012 Overview (08/19/2014): Dysplastic nevus of skin; 8.24.12, L superior shoulder - shave bx Seborrheic keratosis 07/23/2007 016 Overview (08/19/2014): Seborrheic keratosis; to-12-06, right-sided face, LN spray 1-23-9,multiple, face x6 LN Q-tip Colitis, indeterminate 07/23/200704/03 Overview (08/19/2014): Colitis; *See attached note in LMR Viral wart 12/24/2006 08/11/2016 Overview (08/19/2014): Warts; 12-24-06, and left chin, shave removal Melanocytic nevus of skin 12/24/2006 Overview (08/19/2014): Nevus; 12-24-06, trunk and extremities 07-23-07, rule out, left lower back, shave removal Immunizations Immunization Administration Dates Next Due COVID-19 (Pre-04/20) Moderna Vaccine Adult Booster/6-11yrs Primary 07/04/2022 COVID-19 (Pre-04/20) Moderna Vaccine, mRNA, PF 10/18/2021,05/07/2021,10/02/2020,09/04 INFLUENZA, SPLIT VIRUS, TRIV ALENT W/ PRESERVATIVE IM 04/23/2015,04/14/2012,03/31/2012 Influenza High-Dose Trivalen t Preservative Free IM 04/27/2020,04/26/2019,04/15/2018 Influenza Quadrivalent w/ Pr eservative IM 06/08/2017 Influenza, Unspecified Formulation 05/07/2021 PPD Test 11/24/2018 Pneumococcal conjugate PCV13 04/23/2015 Pneumococcal polysaccharide PPSV23 11/24/2018 Tdap 06/08/2017 Zoster live 03/31/2012,08/03/2009 Zoster recombinant 01/02/2022,01/02/2022 Family History Medical History Relation Comments Uncoded Family History Mother skin canc er; basal cell carcinoma Relation Status Comments Mother Social History Tobacco Use Types Packs/Day Years Used Date Smoking Tobacco: Never Smokeless Tobacco: Never Tobacco Cessation:Counseling Given: Not Answered Alcohol Use Standard Drinks/Week Comments Yes 0 (1 standard drink = 0.6 oz pur e alcohol) 1 Education Answer Date Recorded Are you interested in more education? Not on tara e 10/23/2022 Are you concerned about learning? Not on file 10/23/2022 No 10/23/2022 No 10/23/2022 Digital Access Answer Date Recorded No 11/21/2022 No 11/21/2022 Reliable internet access at home? Not on file 11/21/2022 Device with a working camera? Not on file Sex and Gender Information Value Date Recorded Sex Assigned at Not on file Legal Sex Male 7:30 PM EST Gender Identity Not on file Sexual Orientation Not on file Last Filed Vital Signs Vital Sign Reading Time Taken Comments Blood Pressure 132/77 10/14/2022 10:00 AM EDT Pulse 59 09/25/2022 2:09 PM EDT Temperature 36.4 C (97.6 F) 09/25/2022 2:09 PM EDT Respiratory Rate 16 03/16/2020 3:00 PM EDT Oxygen Saturation 95% 03/16/2020 3:00 PM EDT Inhaled Oxygen Concentration - - Weight 95.7 kg (211 lb) 09/25/2022 2:09 PM EDT Height 182.9 cm (6') 04/11/2022 10:46 AM EDT Body Mass Index 28.62 04/11/2022 10:46 AM EDT Plan of Treatment Upcoming Encounters Date Type Department Care Team (Late st Contact Info) Description 05/15/2025 2:00 PM EST [facility] 1999 [facility] [address] [place] [address] Medhat Harper MD, PhD [address] [address] [email or web address] Health Maintenance Due Date Last Done Comments COLOGUARD 1994 FIT TEST 1994 FOBT 1994 SIGMOIDOSCOPY 1994 VIRTUAL COLONOSCOPY 1994 COLONOSCOPY 03/16/2023 03/16/2020, 03/30, 01/04/2010 COLORECTAL CANCER SCREENING 03/16/2023 BLOOD PRESSURE 04/15/2023 10/14/2022 DEPRESSION SCREENING 09/26/2023 09/25/2022 COVID-19 VACCINE ( season) 2024 07/04/2022, 07/04/2022, 10/18/2021, Additional history exists RSV VACCINE (1 - 1-dose 75+ series) 2024 LIPID PANEL 04/11/2027 04/11/2022, 03/29, 04/02/2020, Additional history exists Adult Td,Tdap Booster 06/08/2027 06/08/2017 HEPATITIS C SCREENING Completed 11/24/2018 PNEUMOCOCCAL VACCINES (50+ years) Completed 11/24/2018, 04/23/2015 ZOSTER VACCINES Completed 05/02/2022, 07/0 12/2021, 01/02/2022, Additional history exists SMOKING STATUS SCREENING (Once After 26 Yrs) Completed 11/10/2024 HEPATITIS A VACCINES Aged Out No long er eligible based on patient's age to complete this topic HIB VACCINES Aged Out No longer eligi ble based on patient's age to complete this topic MENINGOCOCCAL VACCINES (ACWY) Aged Out No longer eligible based on patient's age to complete this topic MENINGOCOCCAL VACCINES (B) Aged Out N o longer eligible based on patient's age to complete this topic Medical Devices Not on file Procedures Procedure Name Priority Date/Time Associated Diagnosis Comments LIPID PANEL Routine 04/11/2022 11:53 AM EDT Annual physical exam ENDOSCOPY, COLON 03/16/2020 1:41 PM EDT HEPATITIS C ANTIBODY, QUALITATIVE Routine 11/24/2018 12:58 PM EDT Hypertension, unspecified type Preventative health care Wellness examination from Last 3 Months or Most Recently Relevant to Health Maintenance Results * (ABNORMAL) Lipid panel (04/11/2022 11:53 AM EDT) CHOLESTEROL 111(L) 140 - 200 mg/dL [facility] Comment: Desirable: <200 Borderline: 200-239 High: >239 TRIGLYCERIDES 227(H) 0 - 149 mg/dL [facility] Comment: Normal <150 mg/dL Border-High 150-199 mg/dL High Triglycerides 200-499 mg/dL Very High Triglycerides >=500 mg/dL HDL 30(L) >40 mg/dL [facility] Comment: Recommendations according to the National Cholesterol Education Program Guidelines: <40 mg/dL: Low (Major risk factor for CHD) >= 60 mg/dL: High (Negative risk factor for CHD) CALCULATED LDL 36 0 - 129 mg/dL [facility] Comment: LDL levels in terms of risk for coronary heart disease: <100 mg/dL: Optimal 100-129 mg/dL: Near or above optimal 130-159 mg/dL: Borderline high 160-189 mg/dL: High >190 mg/dL: Very High NON-HDL CHOLESTEROL 81 mg/dL [facility] CARDIAC RISK RATIO 3.7 0 - 5 N [facility] Blood 04/11/2022 11:5 3 AM EDT 04/11/2022 3:04 PM EDT us Dioni Collins MD LAB BLOOD ORDERABLES Final R esult [facility] [address] [place] [address] * ENDOSCOPY, COLON (03/16/2020 1:41 PM EDT) 03/16/2020 1:41 PM EDT Narrative Transcriptions Dioni Collins MD - 03/16/2020 1:41 PM EDT Patient Name: Billy Holman Procedure Date: 03/16/2020 1:41 PM Date of : 1950 Admit Type: Outpatient Age: 69 Room: [place] [address] Gender: Male Note Status: Finalized Attending MD: DIONI COLLINS M.D. Procedure: Colonoscopy Indications: High risk colon cancer surveillance:Inflammatory bowel disease (unclassified) of 8 (or more)years duration with one-third (or more) of the colon involved Providers: DIONI COLLINS M.D. Referring MD: DIONI COLLINS M.D. Medicines: Fentanyl 100 micrograms IV, Midazolam 7 mg IV Complications: No immediate complications. Procedure: Pre-Anesthesia Assessment: - Prior to the procedure, a History and Physical was performed, and patient medications and allergies were reviewed. The patient's toleranceof previous anesthesia was also reviewed. The risks and benefits of the procedure and the sedation options and risks were discussed with thepatient. All questions were answered, and informedconsent was obtained. Prior Anticoagulants: The patienthas taken no previous anticoagulant or antiplatelet agents. ASA Grade Assessment: II - A patientwith mild systemic disease. After reviewing the risks and benefits, the patient was deemed in satisfactory condition to undergo theprocedure. After I obtained informed consent, the scope was passed under direct vision. Throughout the procedure, the patient's blood pressure, pulse,and oxygen saturations were monitored continuously.The Colonoscope was introduced through the anus and advanced to the ileocolonic anastomosis. The colonoscopy was performed without difficulty.The patient tolerated the procedure well. Thequality of the bowel preparation was good. The rectumwas photographed. Scope withdrawal time was 9minutes. Findings: There was evidence of a prior end-to-end ileo-colonic anastomosis inthe transverse colon. This was patent. Multiple small-mouthed diverticula were found in the sigmoid colonand descending colon. A 6 mm polyp was found in the descending colon. The polyp wassessile. The polyp was removed with a cold snare. Resection and retrieval were complete. Localized pseudopolyps were found in the rectum. This was biopsiedwith a cold forceps for histology. Impression: - Patent end-to-end ileo-colonic anastomosis. - Diverticulosis in the sigmoid colon and in the descending colon. - One 6 mm polyp in the descending colon,removed with a cold snare. Resected and retrieved. - Pseudopolyps in the rectum. Biopsied. Recommendation: - Patient has a contact number available for emergencies. The signs and symptoms of potential delayed complications were discussed with the patient. Return to normal activities tomorrow. Written discharge instructions were provided tothe patient. - Resume previous diet. - Continue present medications. - Await pathology results. - Repeat colonoscopy in 3 years forsurveillance. DIONI COLLINS M.D. 03/16/2020 3:53:25 PM This report has been signed electronically. If you are unable to view the report with the images in the CDR/LMR please contact the GI department to obtain a copy of it. Number of Addenda: 0 Note Initiated On: 03/16/2020 1:41 PM Dioni Collins MD GI PROCEDURE ORDERABLES Charley l Result * Hepatitis C antibody, qualitative (11/24/2018 12:58 PM EDT) HCV ANTIBODY Negative Negative [facility] Comment:Test Methodology: Ad via fastDove XP 11/24/2018 12:5 8 PM EDT 11/24/2018 1:40 PM EDT Dioni Collins MD LAB BLOOD ORDERABLES Final R esult Performing Organization Address City/State/[facility] Co de Phone Number [facility] [address] [place] [address] from Last 3 Months or Most Recently Relevant to Health Maintenance Insurance [employer] MEDEX SUPPLEMENT MEDICARE PART A & B MEDICARE PART A & B BLUE CROSS MEDEX SUPPLEMENT MEDICARE PART A & B Member Subscriber Plan / Payer ( fective 2014-) Name:River Billy Member ID:[id number] Relation to Subscriber:Self Name:Billy Holman Subscriber ID:[id number] Payer ID:[id number] Group ID:Not on file Type:Medicare Address: [facility] [employer] [facility] [address] [place] [address] [employer] MEDEX SUPPLEMENT MEDICARE PART A & B [employer] MEDEX SUPPLEMENT MEDICARE PART A & B [employer] MEDEX SUPPLEMENT MEDICARE PART A & B [employer] MEDEX SUPPLEMENT MEDICARE PART A & B [employer] MEDEX SUPPLEMENT MEDICARE PART A & B BLUE CROSS MEDEX SUPPLEMENT MEDICARE PART A & B [employer] CROSS MEDEX SUPPLEMENT MEDICARE PART A & B [employer] CROSS MEDEX SUPPLEMENT MEDICARE PART A & B [employer] MEDEX SUPPLEMENT Advance Directives For more information, please contact: [phone] (9AM - 5PM [facility], Thursday-Thursday) Documents on File Type Date Recorded Patient Spot Billing Clerk Expl anation Advance Directive - Non Epic LMR 07/19/2010 12:00 AM Healthcare Proxy 03/17/2020 Healthcare Agents on File Name Relationship Healthcare Agent Relationship Communication Hillary Meeks Spouse .Primary Health Care Agent (Proxy form on file) Susie Holman Daughter Alternate Health care Agent (Proxy form on file) Billy Holman Son Alternate Health care Agent (Proxy form on file) Care Teams Physical Education Department Chair Relationship Specialty Start Date End Date Fredy Sales DO [address] [place] [address] [email or web address] PCP - General Family Medicine 05/02/24 Medhat Harper MD, PhD [address] [address] [email or web address] Dermatology 03/12/16 Qiana Ibanez MD [address] [address] Dermatology 9/14/16 Additional Source Comments The information contained in this document represents components of the legal health record. It is not the complete legal health record.[facility]
--- OUTSIDE RECORDS SUMMARY | 2025-02-21 15:13 | XMS_ITS | Patient Health Record ---
Author Organization [facility] Jenna jennings Shane Address [address] [place] [address] Care Team Providers Care Crusher Loader Equipment Operator Name Role Phone MD Claudia Germain Primary Care Provider Eugenia Gillis Unavailable [phone] Willow Smiley Unavailable [phone] Allergies Allergen (clinical drug ingredient) Drug/Non Drug Allergy documented on EMR Reaction Allergy Type Onset Date Status Substance with sulfonamide structure and antibacterial mechanism of action (substance) Sulfa Antibiotics hives Drug Allergy Active Reason For Referral No Information Medications Medication SIG (Take, Route, Frequency, Duration) Notes Start Date End Date Status Aspir-81 Active amLODIPine Besylate 10 MG 1 tablet Orally Once a day Active Ciclopirox Olamine 0.77 % 1 application Externally Twice a day; Duration: 30 days Not-Taking Atenolol 50 MG 1 tablet Orally Once a day Active Vitamin D Active Immunizations Vaccine Route Administration Date Status Comme nts Influenza Unknown 02/28/2024 Administered Social History Tobacco Use: Social History Observation [...] Are you an other tobacco user? No AUDIT-C (Standard) Question Answer Notes Did you have a drink containing alcohol in the p ast year? 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 Vital Signs Blood pressure diastolic 72 mm Hg 01/17/2025 Height 6ft in 01/17/2025 Blood pressure systolic 127 mm Hg 01/17/2025 Weight 225 lbs 01/17/2025 BMI 30.51 kg/m2 01/17/2025 Encounters Encounter Location Date Provider Diagnosis [address] [address] 03/29/2024 Eugenia Perica Pain in right foot M79.671 ; 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 ; Tinea unguium B35.1 ; Pain in right toe(s) M79.674 ; Pain in left toe(s) M79.675 and Tinea pedis of both feet B35.[address] [address] 07/05/2024 Eugenia Perica 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 ; Tinea pedis of both feet B35.3 ; Pain in right foot M79.671 ; Tinea unguium B35.1 ; Pain in right toe(s) M79.674 and Pain in left toe(s) M79.[address] [address] 11/09/2024 Willow Sherice Tinea unguium B35.1 ; Pain in right toe(s) M79.674 and Pain in left toe(s) M79.[address] [address] 01/17/2025 Eugenia Perica Tinea unguium B35.1 ; Tinea pedis of both feet B35.3 ; Pain in right toe(s) M79.674 and [...] Pain in right toe(s) (ICD-10 - M79.674) 01/17/2025 Tinea unguium (ICD-10 - B35.1) 01/17/2025 Tinea pedis of both feet (ICD-10 - B35.3) 01/17/2025 Pain in right toe(s) (ICD-10 - M79.674) 07/05/2024 Pain in right foot (ICD-10 - M79.671) 11/09/2024 Pain in left toe(s) (ICD-10 - M79.675) 03/29/2024 Brown's neuroma of right foot (ICD-10 - G57.61) 03/29/2024 Tinea unguium (ICD-10 - B35.1) 03/29/2024 Pain in right toe(s) (ICD-10 - M79.674) 07/05/2024 Tinea unguium (ICD-10 - B35.1) 01/17/2025 Pain in left toe(s) (ICD-10 - M79.675) 07/05/2024 Pain in right toe(s) (ICD-10 - M79.674) 03/29/2024 Pain in left toe(s) (ICD-10 - M79.675) 07/05/2024 Pain in left toe(s) (ICD-10 - M79.675) 03/29/2024 Tinea pedis of both feet (ICD-10 - B35.3) Plan Of Treatment Next Appt Details Provider Name:Eugenia sarmiento, 04/21/2025 10:00:00 AM, [address] [place] [address], [phone], Insurance Providers Payer Name Payer Address Payer Phone Subscriber Number Group Number Insured Name Patient Relationship to Insured Coverage Start Date Coverage End Date Medicare National Govt S[employer] [address] [place] [address] [id number] Billy Holman Self - patient is the insured [employer] [facility] [address] [place] [address] [phone] [id number] Billy Holman Self - patient is the insured Medical (General) History Medical History History ICD Code Cancer Crohns disease Gall bladder removed High blood pressure Measles Mumps Chicken pox Surgical History Surgery Date(Month/Year) small bowel resection 1993 kidney surgery, cancer 2010 Gall bladder removal 1999 colonoscopy 05/2024 endoscopy 05/2024
--- OUTSIDE RECORDS SUMMARY | 2025-02-21 15:13 | XMS_ITS | Encounter Summary ---
Author Organization [facility] Address [address] [place] [address] Phone Care Team Providers Care Station Detective Name Role Phone Medhat Harper MD, PhD Unavailable [phone] Qiana Ibanez MD Unavailable [phone] Pcp, Unknown Primary Care Provider Fredy Daly DO Primary Care Provider [phone] Encounter Details Date Type Department Care Team (Late st Contact Info) Description 11/24/2018 Transcribe Orders [address], [address] [place] [address] Dioni Collins MD [address] [place] [phone] [email or web address] Social History Tobacco Use Types Packs/Day Years [...] [facility] [address] [facility] [address] [place] [address] Medhat Harper MD, PhD [address] [address] [email or web address] documented as of this encounter Visit Diagnoses Not on filedocumented in this encounter Additional Health Concerns Assessment Noted Time PHQ-2 Depression Total Score: 0 11/25/19 19 11:56 AM EDT documented as of this encounter Care Teams Station Detective Relationship Specialty Start Date End Date Pcp, Unknown PCP - General 03/15/24 05/01/24 Fredy Sales DO [address] [place] [id number] [email or web address] PCP - General Family Medicine 05/02/24 Medhat Harper MD, PhD [address] [address] [email or web address] Dermatology 03/12/16 Qiana Ibanez MD [address] [address] [email or web address] Dermatology 03/12/16 documented as of this encounter Additional Source Comments The information contained in this document represents components of the legal health record. It is not the complete legal health record.[facility]
== END 2025-02-21 14:48 | disposition home or self-care (01) ==
LOC: HO.HOS 14:17
PROVIDERS: PCP Student in an Organized Health Care Education/Training Program; Visit Provider Orthopaedic Surgery
DX: M17.12 Unilateral primary osteoarthritis, left knee (principal)
CPT/HCPCS: 99213; G2211

== ENCOUNTER → 2025-02-21 14:16 | Outpatient (BNVA) | payer MEDICARE, SELFPAY | PROVIDERS: PCP Student in an Organized Health Care Education/Training Program; Visit Provider Orthopaedic Surgery | DX: M17.12 Unilateral primary osteoarthritis, left knee (principal) | CPT/HCPCS: 99212 ==

== ENCOUNTER 2025-04-24 13:26 | Outpatient (AMB) | payer MEDICARE, SELFPAY ==
--- OUTSIDE RECORDS SUMMARY | 2024-10-07 07:00 | XMS_ITS ---
Author Organization [facility] Address [address] [place] [address] Care Team Providers Care Therapist Asst Name Role Phone MD Claudia Germain Primary Care Provider Unavailabl Eugenia Mike Unavailable [phone] Yanes Encounters Encounter Location Date Provider Diagnosis [address] [address] 10/07/2024 Eugenia Azar Plan Of Treatment Next Appt Details Provider Name:Eugenia sarmiento, 07/21/2025 10:00:00 AM, [address] [place], [address], Progress Notes * Billy HOLMANDOB:1950 (74 yo M)Acc No.[id number]:10/07/2024 Progress Note Patient: Billy THOMAS Provider: Darian Azar DPM :1950 A ge:74 Y S ex:Male Date:10/07/2024 Address[address] [place] Pcp:MD Claudia Germain Subjective: * Chief Complaints: * [address] Yanes[address] * Medical History: Objective: * Vitals: Assessment: Plan: * Treatment: * Images: * The named appointment provid er may or may not be the originator of this progress note, and it is not deemed complete until electronically signed by the appointment provider. Sign off status: Pending * Provider: Darian Azar DPM Date: 0 10/07/2024 Generated for Charlee beltran/Kristine/Kareem on: 1 05:07 PM EDT
--- OUTSIDE RECORDS SUMMARY | 2024-10-28 08:30 | XMS_ITS ---
[facility] Organization [facility] Address [address] [place] [address] Care Team Providers Care Actuary Manager Name Role Phone MD Claudia Germain Primary Care Provider UnavailEugenia Francois [phone] Encounters Encounter Location Date Provider Diagnosis [address] [address] 10/28/2024 Eugenia Azar Plan Of Treatment Next Appt Details Provider Name:Eugenia sarmiento, 07/21/2025 10:00:00 AM, [address] [place], [address], Progress Notes * Billy HOLMANDOB:1950 (74 yo M)Acc No.[id number]:10/28/2024 Progress Note Patient: Billy THOMAS Provider: Darian Azar DPM :1950 A ge:74 Y S ex:Male Date:10/28/2024 Address:[address] [place] Pcp:MD Claudia Germain Subjective: * Chief Complaints: * * Medical History: Objective: * Vitals: Assessment: Plan: * Treatment: * Images: * The named appointment provid er may or may not be the originator of this progress note, and it is not deemed complete until electronically signed by the appointment provider. Sign off status: Pending * Provider: Darian Azar DPM Date: 0 10/28/2024 Generated for Charlee beltran/Kristine/Kareem on: 1 05:08 PM EDT
--- OUTSIDE RECORDS SUMMARY | 2024-11-08 06:00 | XMS_ITS ---
Author Organization [facility] Address [address] [place] [address] Care Team Providers Care Edi Developer Name Role Phone MD Claudia Germain Primary Care Provider Unavailabl Eugenia Mike Unavailable [phone] Yanes Encounters Encounter Location Date Provider Diagnosis [address] [address] 11/08/2024 Eugenia Azar Plan Of Treatment Next Appt Details Provider Name:Eugenia sarmiento, 07/21/2025 10:00:00 AM, [address] [place], [address], Progress Notes * Billy HOLMANDOB:1950 (74 yo M)Acc No.[id number]:11/08/2024 Progress Note Patient: Billy THOMAS Provider: Darian Azar DPM :1950 A ge:74 Y S ex:Male Date:11/08/2024 Address:[address] [place] Pcp:MD Claudia Germain Subjective: * Chief Complaints: [...] * Provider: Darian Azar DPM Date: 0 11/08/2024 Generated for Charlee beltran/Kristine/Kareem on: 1 05:08 PM EDT
--- OUTSIDE RECORDS SUMMARY | 2025-02-13 10:45 | XMS_ITS ---
[facility] [place] Address [address] [place] [address] Care Team Providers Care Mixer Lever Operator Name Role Phone MD Claudia Germain Primary Care Provider Unavailabl Eugenia Mike Unavailable [phone] Willow Smiley [phone] Encounters Encounter Location Date Provider Diagnosis [address] [address] 02/13/2025 Willow Smiley Plan Of Treatment Next Appt Details Provider Name:Eugenia sarmiento, 07/21/2025 10:00:00 AM, [address] [place], [address], Progress Notes * Billy ORTEZDOB:1950 (74 yo M)Acc No.[id number]:02/13/2025 Progress Note Patient: Billy THOMAS Provider: Tonie Smiley DPM :1950 A ge:74 Y S ex:Male Date:02/13/2025 Address:[address] [id number] Pcp:MD Claudia Germain Subjective: * Chief Complaints: [...] 0 02/13/2025 Generated for Charlee beltran/Kristine/Kareem on: 1 05:07 PM EDT
--- OUTSIDE RECORDS SUMMARY | 2025-04-21 06:00 | XMS_ITS ---
Author Organization [facility] Address [address] [place] [address] Care Team Providers Care Mortgage Loan Processing Clerk Name Role Phone MD Claudia Germain Primary Care Provider Eugenia Gillis Unavailable [phone] Allergies Allergen (clinical drug ingredient) Drug/Non Drug Allergy documented on EMR Reaction Allergy Type Onset Date Status Substance with sulfonamide structure and antibacterial mechanism of action (substance) Sulfa Antibiotics hives Drug Allergy Active REASON FOR VISIT Painful nail(s) aggrevated by shoes causing difficulty standing/walking, Ankle pain Medications Medication SIG (Take, Route, Frequency, Duration) Notes Start Date End Date Status Atenolol 50 MG 1 tablet Orally Once a day Active Aspir-81 Active amLODIPine Besylate 10 MG 1 tablet Orally Once a day Active Vitamin D Active Ciclopirox Olamine 0.77 % 1 application Externally Twice a day; Duration: 30 days Not-Taking Social History Tobacco Use: Social History Observation Description Date Details (start date - stop date) Never Smoker NA - NA Tobacco use other than smoking: Question Answer Notes Are you an other tobacco user? No Tobacco Control (Standard) Question Answer Notes Tobacco use: Nonsmoker AUDIT-C (Standard) Question Answer Notes Did you have a drink containing alcohol in the p ast year? No Points 0 Interpretation Negative Vital Signs Height 6ft in 04/21/2025 Weight 225 lbs 04/21/2025 BMI 30.51 kg/m2 04/21/2025 Blood pressure systolic 125 mm Hg 04/21/20 25 Blood pressure diastolic 72 mm Hg 025 Encounters Encounter Location Date [facility] [address] [place] [address] 04/21/2025 Eugenia Azar Tinea pedis of both feet B35.3 ; Sprain of anterior talofibular ligament of right ankle, initial encounter S93.491A ; Tinea unguium B35.1 ; Pain in right toe(s) M79.674 ; Pain in left toe(s) M79.675 ; Acute right ankle pain M25.571 and Sprain of calcaneofibular ligament of right ankle, initial encounter S93.411A Assessments Encounter Date Diagnosis (ICD Code) Assessment Notes Treatment Notes Treatment Clinical Notes Section Notes 04/21/2025 Tinea pedis of both feet (ICD-10 - B35.3) 04/21/2025 Sprain of anterior talofibular ligament of right ankle, initial encounter (ICD-10 - S93.491A) Dx New problem, Prognosis Uncertain (4) 04/21/2025 Tinea unguium (ICD-10 - B35.1) 04/21/2025 Pain in right toe(s) (ICD-10 - M79.674) 04/21/2025 Pain in left toe(s) (ICD-10 - M79.675) 04/21/2025 Acute right ankle pain (ICD-10 - M25.571) 04/21/2025 Sprain of calcaneofibular ligament of right ankle, initial encounter (ICD-10 - S93.411A) Dx New problem, Prognosis Uncertain (4) Plan Of Treatment Pending Test Test Name Order Date X ray : Ankle, right 3V 04/21/2025 Next Appt Details Follow Up: 3 Months, Reason: Provider Name:Eugenia Greene guillermina, 07/21/2025 10:00:00 AM, [address] [place] [address], [phone], Procedure Notes * Category Sub-Category Detail Notes [...] use of a nail nipper and/or dremel-type external grinder, to a more viable healthy nail [...] to maintain effectiveness in symptomatic relief - 11567 Progress Notes * Billy HOLMANDOB:1950 (74 yo M)Acc No.[id number]:04/21/2025 Progress Note Patient: Billy THOMAS Provider: Darian Azar DPM :1950 A ge:74 Y S ex:Male Date:04/21/2025 Address:[address] [place] [address] [facility] Pcp:MD Claudia Germain Subjective: * Chief Complaints: * P ainful nail(s) aggrevated by shoes causing difficulty standing/walkingAnkle pain * HPI: P ainful Nails: Pt States Last PCP Visit: D ate: 0 01/05/2025 A nkle Pain: Nature: s welling, tenderness occasionally. Location: R ight ankle. Duration: 2 months. Onset/Cause: t rauma [ pt fell ]. Course: , unresolved- no pain, but continued swelling.? Aggravated by: s tanding, walking. Treatments: n one. * ROS: G eneral/Constitutional: Nausea d enies. V omiting d enies. H doug Thirst d enies. L oss appetite d enies. C hills d enies. F atigue d enies.?Fever d enies. N ight Sweats d enies. U nexplained weight loss d enies. U nexplained weight gain d enies. H EENTM: Dentures d enies. D izziness d enies. G lasses/contacts a dmits, denies. R etinopathy d enies. B lurred/double vision d enies.?TMJ d enies. D ischarge/drainage d enies. I mplants d enies. S ore throat d enies. D ental implants d enies. H dianne of hearing a dmits, denies. D ifficulty chewing/swallowing/speaking d enies. N ose bleeds d enies. S ore mouth d enies. R espiratory: On Oxygen d enies. P neumonia/pleurisy a dmits, denies. B ronchitis d enies. E mphysema d enies. C oughing d enies. C ough blood d enies. S hortness of breath d enies. W heezing d enies. C ardiovascular: Pacemaker d enies. M RECEIVING SPECIALIST d enies. W PW d enies. C HF d enies. H eart attack d enies. S eptal defect d enies. R apid beat d enies. C hest pain d enies. A trial Fib. d enies. M urmur/Palpitations d enies. G astrointestinal: Hemorrhoids d enies. S tomach/Abdominal pain d enies. D ark blood stool d enies. I rritable bowel a dmits, denies. C onstipation?denies. D iarrhea a dmits, denies. H ematology: Swelling d enies. C lots d enies. V aricose Veins d enies. B ruising d enies. B leeding problem d enies. G enitourinary: Blood urine d enies. F requent/Painfu/urination/bladder control d enies. K idney stones d enies. I nfection (UTI) d enies. N ephropathy d enies. s ex trans dis (STD) d enies. P rostate d enies. M usculoskeletal: Hammertoes d enies. B unions d enies. B ack Pain d enies. M uscle Cramps/ Resting d enies. M uscle cramps / walking d enies.?Generalized aches and pains d enies. W eakness d enies. I nteg.: Winkler d enies. S cars d enies. C orns/calluses?denies. I ngrown nails d enies. P ainful nails a dmits, denies. O pen Sores d enies. R ashes d enies. N eurologic: Difficulty sleeping d enies. B rain disorder d enies. N umbness a dmits. B alance trouble d enies. C onfusion d enies. F ainting/blackouts d enies. T ingling a dmits. T remors d enies. * Medical History: * Surgical History: s mall bowel resection 1993kidney surgery, cancer 2009Gall bladder removal 1999colonoscopy 05/2024endoscopy 05/2024 * Hospitalization/Major Diagno stic Procedure: D enies Past Hospitalization * Family History: M other: . F ather: , diagnosed with Unspecified essential hypertension.?Siblings: diagnosed with Other malignant neoplasm of unspecified site. * Social History: T obacco Use: T obacco use other than smoking A re you an other tobacco user? N o Tobacco Control (Standard) T obacco use: N onsmoker M iscellaneous: C affeine: yes, 2-3 cups per day. Children: yes. Exercise: yes, walking. Marital status: . Occupation: Retired. D rug/Alcohol: A INGRIS-C (Standard) D id you have a drink containing alcohol in the past year? N o P oints 0 I nterpretation N egative * Medications: T akingVitamin D amLODIPine Besylate 10 MG Tablet 1 [...] reviewed and reconciled with the patient * Allergies: S ulfa Antibiotics: hivesyes[Allergies Verified] Objective: * Vitals: H t: 6ft, Wt:225, BMI:30.51, Shoe size: 11.5W, BP:125/72mm Hg, Ht-cm: 182.88 cm, Wt-k.06 kg. * Examination: N ails: NAILS are: E longated, overgrown, dystrophic, lytic, greater than 3mm thick, discolored and friable with crumbly malodorous subungual debris, with pain on palpation, TA, T1, T2, T3, T4, T5, T6, T7, T8, T9. D ermatologic: SKIN FINDINGS: Skin S TILL, shows sign(s) of, erythema, scaling, in a moccasin fashion, no fissure(s) present, B/L. N eurological: SENSORY: N eurological exam reveals intact sensorium, pain sensation normal, vibration sensation intact, pinprick sensation is normal in the lower extremities, Pt denies, anesthesia, burning, paresthesia, tingling, B/L. V ascular: DP PULSES (B): 3 /4, B/L. PT PULSES (B): 3 /4, B/L. CAPILLARY FILL TIME: i mmediate, all digits, B/L. TROPHIC CONDITION-TEXTURE/ELASTICITY/TURGOR/HAIR GROWTH (B):?normal, B/L. TEMPERTURE GRADIENT (C): w arm to cool, proximal to distal, B/L. PIGMENTATION: n ormal, B/L. EDEMA (C): 1 /4, non-pitting, Ankle(s), Right, without aching pain. O rthopedic: MUSCLE STRENGTH: 5 /5 all groups in a symmetrical fashion , B/L. ANKLE PAIN LOCATED: RIGHT, Lateral ankle, ( + ) swelling, ( - ) ecchymosis, ( - ) lateral instability, minimal p ain with ankle joint ROM, NO P ain on palpation to, ATFL, CFL. X -Rays - IMAGING REPORT: Clinical Indication(s): Evaluate for Fracture. Views: 3 views of Ankle, AP, LAT, LO, RIGHT Taken by trained P odiatric Seed Mill Superintendent ( S F ). Findings: , mild generalized decrease in bone density, dorsal degenerative changes of the tarsal joints, asymmetrical Ankle joint space narrowing. Fracture: N egative fractures identified. ? Assessment: * Assessment: 1. S prain of anterior talofibular ligament of right ankle, initial encounter - S93.491A (Primary) S pecify :Acute problem, Complicated w/ Multiple Tx Options(4) N otes :Dx New problem, Prognosis Uncertain (4) 2 . T inea pedis of both feet - B35.3 S pecify :Failing to change as expected Nonadherent to recommendations 3 . T inea unguium - B35.1 4 . P ain in right toe(s) - M79.674 5 . P ain in left toe(s) - M79.675 6 . A cute right ankle pain - M25.571 7 . S prain of calcaneofibular ligament of right ankle, initial encounter - S93.411A S pecify :Acute problem, Complicated w/ Multiple Tx Options(4) N otes :Dx New problem, Prognosis Uncertain (4) Plan: * Treatment: * Procedures: D ebride Nail 6-10: Nail debridement D ue to the clinical pathology outlined in the [...] the use of a nail nipper and/or dremel- type external grinder, to a more viable healthy nail [...] to maintain effectiveness in symptomatic relief - 34235. * Procedure Codes: 1 1721 DEBRIDE NAIL, 6 OR [id number] X-RAY EXAM OF RIGHT ANKLE 3V, Modifiers: 26 , RT * Preventive Medicine: Counseling: D iscussion: - 14: Office or other outpatient visit for the evaluation and management of an established patient, which required a medically appropriate history and/or examination and MODERATE level of DECISION MAKING for: 1 OR MORE CHRONIC PROBLEM(S) THATS WORSENING, 2 STABLE CHRONIC PROBLEMS, A NEWLY DIAGNOSED PROBLEM WITH UNCERTAIN PROGNOSIS, AN ACUTE COMPLICATED INJURY WITH MULTIPLE TREATMENT OPTIONS, OR AN ACUTE PROBLEM WITH ACCOMPANYING SYSTEMIC SYMPTOMS, THAT POSE(S) A MODERATE RISK OF MORBIDITY. THIS CONDITION MAY ALSO INCLUDE RX DRUG MANAGEMENT, OR A DECISON FOR MINOR SURGERY. The visit on the day of the [...] have encouraged the patient to call the office, . A nkle Pain: I explained to the patient the possible etiologies of their Ankle Pain, including foot type/shoegear/activity level/exercise routine and the risks/benefits of all the different treatment options for pain including: No treatment at all, Rest, Ice, NSAIDs(only if well tolerated after meals), New/supportive Shoegear, Strappings and Tapings, Foot/Ankle AFO Bracing, Stretching exercises, Deep Tissue Massage, Heel cups/cushions, Arch support/shoe inserts, Custom orthoses, Topical analgesics including Aspercream/Voltaren gel, Night splints for am stiffness, Physical Therapy, EPAT/ESWT, Interfil injection therapy. Advantages and disadvantages of each option were discussed and the patients questions re: shoegear, custom vs prefabricated inserts, activity level, PO vs Topical medications (and their respective potential complications/drug interactions/side effects), and consistency in home treatment regimens for optimal success were answered to their verbally confirmed satisfaction. A rthritis: T he patient was counseled on the various etiologies for their Arthritis including genetic, history of injury or trauma, abnormal foot biomechanics leading to excessive joint wear, and use/overuse. We discussed the various treatment options from no treatment, to topical analgesics such as Biofreeze gel, Aspercream, Voltaren gel, Lidoderm patches, CBD oils, THC creams, and Custom-compounded topical cream preparations to natural oral products such as Glucosamine Sulfate/Chondroitin/MSM/Collegen to analgesic Tylenol, to anti-inflammatory medications such as Ibuprofen/Naproxen, and the use of oral steroids if needed. Cardiac, Kidney, and GI issues were discussed RE: potential complications of oral anti-inflammatories. We discussed several other treatment options consisting of accom shoes, supportive innersoles, AFO bracing/support, cortisone injection therapy, and surgical resection of the arthritic joint(s) or fusion reconstruction if necessary. We discussed the advantages and disadvantages of conservative (vs) surgical treamtents including pain relief, improved function/activities of daily life, return to exercise to failure, expense, systemic complications, infection, [id number], prolongued postop course. Patient questions re: the various treatment options available, their successes and potential failures, and retirement effects were discussed and the answers were verbally confirmed understood. P .R.I.C.E.: T he patient was counseled on the use of P.R.I.C.E. and NSAIDS (if well tolerated) to aid in the recovery from their painful condition, Recommended Topical analgesics including Aspercream/Biofreeze/Voltaren gel as directed. X -rays: D iscussed and reviewed the X-rays with the patient. We discussed how the findings relate to the patients symptoms/complaints. Answered any and all questions.. Screening/Special Tests: F all Risk Screening: O ne fall with injury in the past year Plan of Care: D ocumented Type of fall plan of care: B alance, strength and gait training or instruction provided F ALLS: Screening for Future Fall Risk Have you had two or more falls in the past year? N o Have you had any falls with injury in the past year? Y es * Follow Up: 3 Months * Images: * Sign off status: Completed true * Provider: Darian Azar DPM Date: 1 Generated for Charlee beltran/Kristine/eTmy on: 05:08 PM EDT History and Physical Notes * HPI (History of Present Illness) Category Sub-Category Detail Notes Category Not es Ankle Pain Duration: 2 months Nature: swelling, tenderness occasionally Treatments: none Course: , unresolved- no hernandez n, but continued swelling Location: Right ankle Onset/Cause: trauma [ pt fell ] Aggravated by: standing, walking Painful Nails Pt States Last PCP Visit: Date:: 01/05/2025 Examination Category Sub-Category Detail Notes Category Not es Neurological SENSORY: Neurological exa m reveals intact sensorium, pain sensation normal, vibration sensation intact, pinprick sensation is normal in the lower extremities, Pt denies, anesthesia, burning, paresthesia, tingling, B/L Dermatologic SKIN FINDINGS: Skin STILL, show s sign(s) of, erythema, scaling, in a moccasin fashion, no fissure(s) present, B/L Orthopedic ANKLE PAIN LOCATED: RIGHT, Later al ankle, ( + ) swelling, ( - ) ecchymosis, ( - ) lateral instability, minimal pain with ankle joint ROM, NO Pain on palpation to, ATFL, CFL MUSCLE STRENGTH: 5/5 all groups in a symmetrical fashion , B/L Vascular DP PULSES (B): 3/4, B/L PT PULSES (B): 3/4, B/L CAPILLARY FILL TIME: immediate, all digi ts, B/L TEMPERTURE GRADIENT (C): warm to cool, p roximal to distal, B/L TROPHIC CONDITION-TEXTURE/ELASTICITY/TURGOR/HAIR GROWTH (B): normal, B/L EDEMA (C): 1/4, non-pitting, An kle(s), Right, without aching pain PIGMENTATION: normal, B/L Nails NAILS are: Elongated, overg rown, dystrophic, lytic, greater than 3mm thick, discolored and friable with crumbly malodorous subungual debris, with pain on palpation, TA, T1, T2, T3, T4, T5, T6, T7, T8, T9 X-Rays - IMAGING REPORT Findings: , mild g eneralized decrease in bone density, dorsal degenerative changes of the tarsal joints, asymmetrical Ankle joint space narrowing Fracture: Negative fractures i dentified Views: 3 views of Ankle, AP , LAT, LO, RIGHT Taken by trained Podiatric Seed Mill Superintendent ( SF ) Clinical Indication(s): Evaluate for Fra cture
--- NOTE | 2025-04-24 13:33 | MHC.OFFVIS ---
Intake Visit Reasons: INJ-left knee Durolane inj- Intake Note: Billy is a 74 year olf male who presents with complaints of left knee pain. He describes his pain as sharp in nature. He has failed the last 3 months of conservative treatment which has included meloxicam, a home exercise program and physical therapy exercises. He has had Durolane injections in the past which gave him good relief. He wishes to hold off on surgery if at all possible. Allergies Sulfa (Sulfonamide Antibiotics) (SULFA (SULFONAMIDE ANTIBIOTICS)) Allergy (Unknown, Verified 04/24/25 13:42) HIVES Medication List - Last Reconciled 04/24/25 by Raymond Owens MD amlodipine 10 mg PO DAILY aspirin 81 mg PO DAILY atenolol 50 mg PO DAILY 90 days cholecalciferol (vitamin D3) 2,000 units PO DAILY meloxicam 15 mg PO DAILY omeprazole 20 mg PO DAILY 90 days ondansetron HCl 4 mg PO BID PRN 60 days [facility] Medical History Left knee pain Osteoarthritis of left knee Crohn's disease Arthritis HTN (hypertension) Thoracic aortic aneurysm Surgical History History of esophagogastroduodenoscopy (EGD) H/O colonoscopy Hx of cholecystectomy Family History Father No problems noted. Mother Lung cancer Brother Pancreatic cancer Social History Are you a primary respiratory care technician to a significant other at home: No Do you presently have visiting nurse or other home services: No Alcohol intake: current Alcohol intake frequency: holidays/special occasions only Patient Tobacco Use Status: Never used Tobacco Physical Exam Extrem Other: Left knee examination shows a minimal effusion, palpable crepitus with range of motion, pain with range of motion, no instability Office Procedures AMB Joint Injection/Aspiration Joint Injection/Aspiration Primary Site: left knee Prep: site was prepped using aseptic technique Injected: 60 mg of (Durolane viscosupplementation), with 4 mL of and 1% plain lidocaine Procedure: The patient tolerated the procedure well Coding 39702 - Large joint Procedure code (CPT) selection complete Results Reviewed Results Reviewed: X-rays of the patient's left knee taken previously show joint space narrowing, subchondral sclerosis, no acute bony abnormalities Assessment & Plan Assessment & Plan (1) Osteoarthritis of left knee: Code(s): M17.12 - Unilateral primary osteoarthritis, left knee Category: Medical Plan Mr. Holman presents with left knee pain due to osteoarthritis. The risks and benefits of a left knee Durolane injection were discussed at length with the patient. The patient wished to proceed. He tolerated the injection well. Will continue with his home exercise program. He will contact me prior to his follow-up appointment in 3 months should any questions or concerns arise. Feel free to call me at any time should questions regarding his orthopedic management arise. I spent 21 minutes in reviewing the patient's records and imaging studies, seeing the patient and documenting in the medical record. Orders: Orders AMB Joint Injection/Aspiration Today M17.12 - Unilateral primary osteoarthritis, left knee Coding Level of Care Code Est Pt Level 3 (77945) Complex EM visit Add On G2211 Diagnoses Osteoarthritis of left knee M17.12 CPT Codes Coding - 52060 Large joint: 31046 - Large joint ([id number])
--- OUTSIDE RECORDS SUMMARY | 2025-04-24 17:08 | XMS_ITS | Clinical Summary ---
Author Organization [facility] Address [address] [place] [address] Phone Care Team Providers Care Carrier Associate Name Role Phone Medhat Harper MD, PhD Unavailable [phone] Qiana Ibanez MD Unavailable Fredy Sales DO Primary Care Provider [phone] Allergies Active Allergy Reactions Criticality Noted Date [...] PM EST Office Visit [facility]Julieth powers 1999 [facility] [address] [place] [address] Medhat Harper MD, PhD [address] [address] [email or web address] Health Maintenance Due Date Last Done Comments COLOGUARD 1994 FIT TEST 1994 FOBT 1994 SIGMOIDOSCOPY 1994 VIRTUAL COLONOSCOPY 1994 COLONOSCOPY 03/16/2023 03/16/2020, 03/30, 01/04/2010 COLORECTAL CANCER SCREENING 03/16/2023 BLOOD PRESSURE 04/15/2023 10/14/2022 DEPRESSION SCREENING 09/26/2023 09/25/2022 RSV VACCINE (1 - 1-dose 75+ series) 2024 INFLUENZA VACCINE (#1) 2025 , 05/07/2021, 04/27/2020, Additional history exists COVID-19 VACCINE ( season) 2025 07/04/2022, 07/04/2022, 10/18/2021, Additional history exists LIPID PANEL 04/11/2027 04/11/2022, 03/29, 04/02/2020, Additional history exists Adult Td,Tdap Booster 06/08/2027 06/08/2017 HEPATITIS C SCREENING Completed 11/24/2018 PNEUMOCOCCAL VACCINES (50+ years) Completed 11/24/2018, 04/23/2015 ZOSTER VACCINES Completed 05/02/2022, 12/2021, 01/02/2022, Additional history exists SMOKING STATUS [...] EDT) CHOLESTEROL 111(L) 140 - 200 mg/dL [facility] Comment: Desirable: <200 Borderline: 200-239 High: >239 TRIGLYCERIDES 227(H) 0 - 149 mg/dL [facility] Comment: Normal <150 mg/dL Border-High 150-199 mg/dL High Triglycerides 200-499 mg/dL Very High Triglycerides >=500 mg/dL HDL 30(L) >40 mg/dL [facility] Comment: Recommendations according to the National Cholesterol Education Program Guidelines: <40 mg/dL: Low (Major risk factor for CHD) >= 60 mg/dL: High (Negative risk factor for CHD) CALCULATED LDL 36 0 - 129 mg/dL [facility] Comment: LDL levels in terms of risk for coronary heart disease: <100 mg/dL: Optimal 100-129 mg/dL: Near or above optimal 130-159 mg/dL: Borderline high 160-189 mg/dL: High >190 mg/dL: Very High NON-HDL CHOLESTEROL 81 mg/dL [facility] CARDIAC RISK RATIO 3.7 0 - 5 N [facility] Blood 04/11/2022 11:5 3 AM EDT 04/11/2022 3:04 PM EDT us Dioni Collins MD LAB BLOOD ORDERABLES Final R esult [facility] [address] [place] [address] * ENDOSCOPY, COLON (03/16/2020 1:41 PM EDT) 03/16/2020 1:41 PM EDT Narrative Transcriptions Dioni Collins MD - 03/16/2020 1:41 PM EDT Patient Name: Billy Holman Procedure Date: 03/16/2020 1:41 PM Date of : 1950 Admit Type: Outpatient Age: 69 Room: [place] [address] Gender: Male Note Status: Finalized Attending MD: [...] Dioni Collins MD GI PROCEDURE ORDERABLES Charley serra Result * Hepatitis C antibody, qualitative (11/24/2018 12:58 PM EDT) HCV ANTIBODY Negative Negative [facility] Comment:Test Methodology: Ad via Datameer 11/24/2018 12:5 8 PM EDT 11/24/2018 1:40 PM EDT Dioni Collins MD LAB BLOOD ORDERABLES Final R esult [facility] [address] [place] [address] from Last 3 Months or Most Recently Relevant to Health Maintenance Insurance [employer] SUPPLEMENT MEDICARE PART A & B MEDICARE PART A & [place] [address] [place] [address] MEDEX SUPPLEMENT MEDICARE PART A & B [employer] MEDEX SUPPLEMENT MEDICARE PART A & B [employer] SUPPLEMENT MEDICARE PART A & B [place] [employer] MEDEX SUPPLEMENT MEDICARE PART A & B [place] [employer] MEDEX SUPPLEMENT MEDICARE PART A & B [place] [employer] MEDEX SUPPLEMENT MEDICARE PART A & B [employer] MEDEX SUPPLEMENT MEDICARE PART A & B [employer] MEDEX SUPPLEMENT MEDICARE PART A & B [employer] MED[employer] SUPPLEMENT MEDICARE PART A & B [employer] MEDEX SUPPLEMENT Advance Directives For more information, please contact: [phone] (9AM - 5PM [facility], Thursday-Thursday) Documents on File Type Date Recorded Patient Geospatial Intelligence Analyst Expl anation Advance Directive - Non Epic LMR 07/19/2010 12:00 AM Healthcare Proxy 03/17/2020 Healthcare Agents on File Name Relationship Healthcare Agent Relationship Communication Hillary Meeks Spouse .Primary Health Care Agent (Proxy form on file) Susie Holman Daughter Alternate Health care Agent (Proxy form on file) Billy Holman Son Alternate Health care Agent (Proxy form on file) Care Teams Carrier Associate Relationship Specialty Start Date End Date Fredy Sales DO [address] [place] [address] [email or web address] PCP - General Family Medicine 05/02/24 Medhat Harper MD, PhD [address] [address] [email or web address] Dermatology 03/12/16 Qiana Ibanez MD [address] [address] [email or web address] Dermatology 03/12/16 Additional Source Comments The information contained in this document represents components of the legal health record. It is not the complete legal health record.[facility]
--- OUTSIDE RECORDS SUMMARY | 2025-04-24 17:08 | XMS_ITS | Encounter Summary ---
Author Organization [facility] Address [address] [place] [address] Phone Care Team Providers Care Branch Director Name Role Phone Medhat Harper MD, PhD Unavailable [phone] Qiana Ibanez MD Unavailable [phone] Pcp, Unknown Primary Care Provider Fredy Daly DO Primary Care Provider [phone] Encounter Details Date Type Department Care Team (Late st Contact Info) Description 08/27/2017 Ancillary Orders [facility] [place] of [place] [address] [facility] 5th Floor, [address] [place] [address] Cecilia Bravo, PARA PROFESSIONAL [address] [facility] [address] [place] [address] [email or web address] Malignant neoplasm of left kidney Social History Tobacco Use Types Packs/Day Years [...] [facility] at [facility] 1999 [facility], [address] [place] [address] Medhat Harper MD, PhD [address] [place] [address] [email or web address] documented as of this encounter Results * US Kidneys and Bladder (08/27/2017 9:36 AM EST) Anatomical Region Laterality Modality Abdomen, Kidney Ultrasound 08/27/2017 11:1 8 AM EST Impressions 08/27/2017 3:13 PM EST No suspicious abnormality status-post partial left nephrectomy. Narrative 08/27/2017 3:13 PM EST TECHNIQUE: Ultrasound evaluation of the KIDNEYS AND BLADDER. Volumetric sweeps were obtained and reviewed. COMPARISON: Kidney-bladder ultrasound 09/20/2015. FINDINGS: RIGHT KIDNEY: The right kidney measures 10.7 cm. Parenchyma is within normal limits. No hydronephrosis. LEFT KIDNEY: The left kidney measures 10.2 cm. Prior partial nephrectomy. Parenchyma is within normal limits. No hydronephrosis. BLADDER: Unremarkable. Procedure Note Qing Hare MD - 08/27/2017 TECHNIQUE: Ultrasound evaluation of the KIDNEYS AND BLADDER. Volumetric sweeps were obtained and reviewed. COMPARISON: Kidney-bladder ultrasound 09/20/2015. FINDINGS: RIGHT KIDNEY: The right kidney measures 10.7 cm. Parenchyma is withinnormal limits. No hydronephrosis. LEFT KIDNEY: The left kidney measures 10.2 cm. Prior partialnephrectomy. Parenchyma is within normal limits. No hydronephrosis. BLADDER: Unremarkable. IMPRESSION: No suspicious abnormality status-post partial left nephrectomy. us Kaleb Fontana MD [facility] Final Result documented in this encounter Visit Diagnoses Diagnosis Malignant neoplasm of left kidney Malignant neoplasm of left kidney documented in this encounter Additional Health Concerns Assessment Noted Time PHQ-2 Depression Total Score: 0 06/08/20 17 1:39 PM EST documented as of this encounter Care Teams Branch Director Relationship Specialty Start Date End Date Pcp, Unknown PCP - General 03/15/24 05/01/24 [place] [address] [email or web address] PCP - General Family Medicine 05/02/24 Medhat Harper MD, PhD [address] [address] [email or web address] Dermatology 03/12/16 Qiana Ibanez MD [address] [address] [email or web address] Dermatology 03/12/16 documented as of this encounter Additional Source Comments The information contained in this document represents components of the legal health record. It is not the complete legal health record.[facility]
--- OUTSIDE RECORDS SUMMARY | 2025-04-24 17:08 | XMS_ITS | Encounter Summary ---
Author Organization [facility] Address [address] [place] [address] Phone Care Team Providers Care Senior Genetic Counselor Name Role Phone Medhat Harper MD, PhD Unavailable Qiana Ibanez MD Unavailable [phone] Pcp, Unknown Primary Care Provider Fredy Daly DO Primary Care Provider [phone] Encounter Details Date Type Department Care Team (Late st Contact Info) Description 11/24/2018 Transcribe Orders [address], [address] [place] [address] Dioni Collins MD [address] [place] [address] [email or web address] Social History Tobacco Use Types Packs/Day Years [...] [facility] at [facility] 1999 [facility], [facility] [address] [place] [address] Medhat Harper MD, PhD [address] [address] [email or web address] documented as of this encounter Visit Diagnoses Not on filedocumented in this encounter Additional Health Concerns Assessment Noted Time PHQ-2 Depression Total Score: 0 11/25/19 19 11:56 AM EDT documented as of this encounter Care Teams Senior Genetic Counselor Relationship Specialty Start Date End Date Pcp, Unknown PCP - General 03/15/24 05/01/24 Fredy Sales DO [address] [place] [address] [email or web address] PCP - General Family Medicine 05/02/24 Medhat Harper MD, PhD [address] [address] [email or web address] Dermatology 03/12/16 Qiana Ibanez MD [address] [address] [email or web address] Dermatology 03/12/16 documented as of this encounter Additional Source Comments The information contained in this document represents components of the legal health record. It is not the complete legal health record.[facility]
--- OUTSIDE RECORDS SUMMARY | 2025-04-24 17:08 | XMS_ITS | Encounter Summary ---
Author Organization [facility] Address [address] [place] [address] Phone Care Team Providers Care Textile Worker Name Role Phone Medhat Harper MD, PhD Unavailable [phone] Qiana Ibanez MD Unavailable [phone] Pcp, Unknown Primary Care Provider Fredy Daly DO Primary Care Provider Encounter Details Date Type Department Care Team (Late st Contact Info) Description 05/25/2018 Procedure Pass [facility] - MRI, Main [place] [address] [place] [address] Social History Tobacco Use Types Packs/Day Years [...] PM EST Office Visit [facility] at [facility], .[place] [address] [facility] [address] [place], [place] [address] Medhat Harper MD, PhD [address] [phone] [email or web address] documented as of this encounter Visit Diagnoses Not on filedocumented in this encounter Additional Health Concerns Assessment Noted Time PHQ-2 Depression Total Score: 0 06/08/20 17 1:39 PM EST documented as of this encounter Care Teams Textile Worker Relationship Specialty Start Date End Date Pcp, Unknown PCP - General 03/15/24 05/01/24 Fredy Sales DO [address] [place] [address] PCP - General Family Medicine 05/02/24 Medhat Harper MD, PhD [address] [address] Dermatology 03/12/16 Qiana Ibanez MD [address] [address] [email or web address] Dermatology 03/12/16 documented as of this encounter Additional Source Comments The information contained in this document represents components of the legal health record. It is not the complete legal health record.[facility]
--- OUTSIDE RECORDS SUMMARY | 2025-04-24 17:09 | XMS_ITS | Patient Health Record ---
Author Organization [facility] Address [address] [place] [address] Care Team Providers Care Suggestion Clerk Name Role Phone MD Claudia Germain Primary Care Provider Eugenia Gillis Unavailable [phone] Willow Smiley Unavailable [phone] Allergies Allergen (clinical drug ingredient) Drug/Non Drug [...] Twice a day; Duration: 30 days Not-Taking Immunizations Vaccine Route Administration Date Status Comme nts Influenza Unknown 02/28/2024 Administered Influenza Unknown 03/05/2025 Administered Social History Tobacco Use: Social History Observation Description Date Details (start date - stop date) Never Smoker NA - NA Alcohol Screen Question Answer Notes Did you [...] Notes Problem Brown's neuroma of right foot ([id number]) 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 Vital Signs Blood pressure diastolic 72 mm Hg 04/21/2025 Height 6ft in 04/21/2025 Blood pressure systolic 125 mm Hg 04/21/2025 Weight 225 lbs 04/21/2025 BMI 30.51 kg/m2 04/21/2025 Encounters Encounter Location Date Provider Diagnosis [address] [address] 07/05/2024 Eugenia Perica 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 ; Tinea pedis of both feet B35.3 ; Pain in right foot M79.671 ; Tinea unguium B35.1 ; Pain in right toe(s) M79.674 and Pain in left toe(s) M79.[address] [address] 11/09/2024 Willow Sherice Tinea unguium B35.1 ; Pain in right toe(s) M79.674 and Pain in left toe(s) M79.[address] [address] 01/17/2025 Eugenia Perica Tinea unguium B35.1 ; Tinea pedis of both feet B35.3 ; Pain in right toe(s) M79.674 and Pain in left toe(s) M79.[address] [address] 04/21/2025 Eugenia Perica Tinea pedis of both feet B35.3 ; [...] New problem, Prognosis Uncertain (4) 04/21/2025 Tinea pedis of both feet (ICD-10 - B35.3) 01/17/2025 Pain in right toe(s) (ICD-10 - M79.674) 04/21/2025 Tinea unguium (ICD-10 - B35.1) 07/05/2024 Pain in right foot (ICD-10 - M79.671) 11/09/2024 Pain in left toe(s) (ICD-10 - M79.675) 07/05/2024 Tinea unguium (ICD-10 - B35.1) 01/17/2025 Pain in left toe(s) (ICD-10 - M79.675) 04/21/2025 Pain in right toe(s) (ICD-10 - M79.674) 07/05/2024 Pain in right toe(s) (ICD-10 - [...] Ankle, right 3V 04/21/2025 Next Appt Details Provider Name:Eugeniatroy sarmiento, 07/21/2025 10:00:00 AM, [address] [place], [address], Insurance Providers Payer Name Payer Address Payer Phone Subscriber Number Group Number Insured Name Patient Relationship to Insured Coverage Start Date Coverage End Date Medicare National Govt [employer] [address] [place] [address] [id number] Billy Holman Self - patient is the insured [employer] [address] [place] [address] [phone] [id number] Billy Holman Self - patient is the insured Medical (General) History Medical History History ICD Code Cancer Crohns disease Gall bladder removed High blood pressure Measles Mumps Chicken pox Surgical History Surgery Date(Month/Year) small bowel resection 1993 kidney surgery, cancer 2010 Gall bladder removal 1999 colonoscopy 05/2024 endoscopy 05/2024
--- OUTSIDE RECORDS SUMMARY | 2025-04-24 17:09 | XMS_ITS | Encounter Summary ---
Author Organization [facility] Address [address] [place] [address] Phone Care Team Providers Care Deputy Chief Magistrate Name Role Phone Medhat Harper MD, PhD Unavailable [phone] Qiana Ibanez MD Unavailable [phone] Pcp, Unknown Primary Care Provider Fredy Daly DO Primary Care Provider [phone] Encounter Details Date Type Department Care Team (Late Contact Info) Description 03/16/2020 Procedure Pass [facility] ENDO [facility]PT [address] [place], [place] [id number] Social History Tobacco Use Types Packs/Day Years [...] Visit [facility] 1999 [facility], [address] [place] [address] Medhat Harper MD, PhD [address] [address] [email or web address] documented as of this encounter Visit Diagnoses Not on filedocumented in this encounter Additional Health Concerns Assessment Noted Time PHQ-2 Depression Total Score: 0 06/15/20 19 12:10 PM EST documented as of this encounter Care Teams Deputy Chief Magistrate Relationship Specialty Start Date End Date Pcp, Unknown PCP - General 03/15/24 05/01/24 [place] [address] [email or web address] PCP - General Family Medicine 05/02/24 Medhat Harper MD, PhD [address] [address] [email or web address] Dermatology 03/12/16 Qiana Ibanez MD [address] [address] [email or web address] Dermatology 03/12/16 documented as of this encounter Additional Source Comments The information contained in this document represents components of the legal health record. It is not the complete legal health record.[facility]
== END 2025-04-24 14:04 | disposition home or self-care (01) ==
LOC: HO.HOS 13:26
PROVIDERS: PCP Student in an Organized Health Care Education/Training Program; Visit Provider Orthopaedic Surgery
DX: M17.12 Unilateral primary osteoarthritis, left knee (principal)
CPT/HCPCS: 20610; 99213

== ENCOUNTER → 2025-04-24 13:26 | Outpatient (BNVA) | payer MEDICARE, SELFPAY | PROVIDERS: PCP Student in an Organized Health Care Education/Training Program; Visit Provider Orthopaedic Surgery | DX: M17.12 Unilateral primary osteoarthritis, left knee (principal); Z79.899 Other long term (current) drug therapy | CPT/HCPCS: 20610; 99212; J2003; J7318 ==